=== PATIENT | male | born 1975 | race Caucasian/White ===

== ENCOUNTER 2017-12-18 11:12 | Inpatient (IN) | payer BC, OTHER ==
--- NOTE | 2017-12-18 12:15 | PDOC ---
History of Present Illness - History of Present Illness Initial Comments: 12/18/17 14:27 The patient is a 42 year old male with no significant past medical history who presents to the ED today sent from Dr. Diane Beasley at [facility] for worsening RLE pain s/p fall while at work on November 11. The patient reports high impact fall at his work to right knee where his leg twisted behind him. He states that he visited [facility] Care for the pain the day after the fall, who sent him to a knee specialist. Specialist found X-ray negative and sent him to vascular specialist. Pt was unable to see the vascular specialist and thus Dr. Beasley from urgent care ordered an arterial US of bilateral lower extremities. The US was done yesterday and revealed abnormal biphasic flow under right knee without plaques. As such, Dr. Beasley called the patient today and instructed him to come to the ED. The patient states that the pain is localized in the right calf and describes it as electricity shooting down his leg, and it feels like hot pain with numbness to his toes in RLE. The pain is brought on with exertion. He notes pain begins after walking as little as one block and states feels like Reina sprinted 5 miles. He also notes that after walking 1 block, his toes begin to feel numb. Allergies: NKA Past surgical history: none reported Social history: Daily tobacco use (4 cigarettes per day) Dr. Diane Beasley -Office: -covering office: <Eduard Quesada - Last Filed: 12/18/17 17:40> <Mirtha Simms - Last Filed: 12/18/17 19:08> - General Chief Complaint: Revisit, Lab Variance Stated Complaint: RT LEG NUMBNESS, LAB VARIANCE (WORK INJURY) Time Seen by Provider: 12/18/17 11:49 Past History - Past Medical History COPD: No - Suicide/Smoking/Psychosocial Hx Smoking History: Current every day smoker Have you smoked in the past 12 months: Yes Number of Cigarettes Smoked Daily: 4 Information on smoking cessation initiated: Yes 'Breaking Loose' booklet given: 12/18/17 Hx Alcohol Use: No Drug/Substance Use Hx: No Substance Use Type: None <Eduard Quesada - Last Filed: 12/18/17 17:40> <Mirtha Simms - Last Filed: 12/18/17 19:08> - Past Medical History Allergies/Adverse Reactions: Allergies Allergy/AdvReac Type Severity Reaction Status Date / Time No Known Allergies Allergy Verified 12/18/17 11:14 Home Medications: Ambulatory Orders NK [No Known Home Medication] 12/18/17 Review of Systems - Review of Systems Comments:: 12/18/17 14:34 "GENERAL/CONSTITUTIONAL: No fever or chills. No weakness. HEAD, EYES, EARS, NOSE AND THROAT: No change in vision. No ear pain or discharge. No sore throat. GASTROINTESTINAL: No nausea, vomiting, diarrhea or constipation. GENITOURINARY: No dysuria, frequency, or change in urination. CARDIOVASCULAR: No chest pain or shortness of breath. RESPIRATORY: No cough, wheezing, or hemoptysis. MUSCULOSKELETAL: (+)Right knee and calf pain. No joint or muscle swelling. No neck or back pain. SKIN: No rash NEUROLOGIC: No headache, vertigo, loss of consciousness, or change in strength. +R calf numbness ENDOCRINE: No increased thirst. No abnormal weight change. HEMATOLOGIC/LYMPHATIC: No anemia, easy bleeding, or history of blood clots. ALLERGIC/IMMUNOLOGIC: No hives or skin allergy." <Eduard Quesada - Last Filed: 12/18/17 17:40> *Physical Exam - Vital Signs Last Vital Signs Temp Pulse Resp BP Pulse Ox 97.9 F 76 18 107/70 100 12/18/17 11:15 12/18/17 11:15 12/18/17 11:15 12/18/17 11:15 12/18/17 11:15 - Physical Exam Comments: 12/18/17 14:35 GENERAL: Awake, alert, and fully oriented, in no acute distress HEAD: No signs of trauma EYES: PERRLA, EOMI, sclera anicteric, conjunctiva clear ENT: Auricles normal inspection, hearing grossly normal, nares patent, oropharynx clear without exudates. Moist mucosa NECK: Normal ROM, supple, no lymphadenopathy, JVD, or masses LUNGS: Breath sounds equal, clear to auscultation bilaterally. No wheezes, and no crackles HEART: Regular rate and rhythm, normal S1 and S2, no murmurs, rubs or gallops ABDOMEN: Soft, nontender, normoactive bowel sounds. No guarding, no rebound. No masses EXTREMITIES: (+)Diminished right dorsalis pedis pulse, not palpable but located by doppler. Normal L DP pulse. Normal range of motion, no edema. No clubbing or cyanosis. No cords, erythema, or tenderness BACK: No midline spinal tenderness in cervical/thoracic/lumbar region NEUROLOGICAL: Normal speech, cranial nerves intact, 5/5 strength in all 4 extremities, decreased R foot sensation to plantar surface of toes, normal sensation to proximal foot, normal cerebellar exam, normal gait, normal reflexes and tone SKIN: Warm, Dry, normal turgor, no rashes or lesions noted. <Eduard Quesada - Last Filed: 12/18/17 17:40> - Vital Signs Last Vital Signs Temp Pulse Resp BP Pulse Ox 97.9 F 76 18 107/70 100 12/18/17 11:15 12/18/17 11:15 12/18/17 11:15 12/18/17 11:15 12/18/17 11:15 <Mirtha Simms - Last Filed: 12/18/17 19:08> ED Treatment Course - LABORATORY CBC & Chemistry Diagram: 12/18/17 12:35 12/18/17 12:35 <Eduard Quesada - Last Filed: 12/18/17 17:40> - LABORATORY CBC & Chemistry Diagram: 12/18/17 12:35 12/18/17 12:35 - ADDITIONAL ORDERS Additional order review: Laboratory Results 12/18/17 12/18/17 12/18/17 12:50 12:35 12:35 PT with INR 10.70 INR 0.95 PTT (Actin FS) 30.5 Sodium Potassium Chloride Carbon Dioxide Anion Gap BUN Creatinine Creat Clearance w eGFR Random Glucose Calcium Total Bilirubin AST ALT Alkaline Phosphatase Total Protein Albumin Blood Type B POSITIVE Antibody Screen Negative 12/18/17 12:35 PT with INR INR PTT (Actin FS) Sodium 138 Potassium 4.5 Chloride 104 Carbon Dioxide 29 Anion Gap 5 L BUN 10 Creatinine 1.0 Creat Clearance w eGFR > 60 Random Glucose 90 Calcium 9.6 Total Bilirubin 0.3 AST 12 L ALT 23 Alkaline Phosphatase 87 Total Protein 7.5 Albumin 4.1 Blood Type Antibody Screen 12/18/17 12:35 RBC 5.14 MCV 91.4 MCHC 33.8 RDW 13.5 MPV 7.1 L Neutrophils % 60.1 Lymphocytes % 31.3 Monocytes % 6.7 Eosinophils % 1.2 Basophils % 0.7 - RADIOLOGY Radiograph Interpretation: 12/18/17 19:07 Aorta w/ runoff CTA was reviewed by Dr. Quesada and over-read by Radiology. IMPRESSION: Occluded proximal half of the right popliteal artery with reconstitution of flow to the popliteal artery at the level of the knee joint with distal leg/foot three-vessel runoff. 5 mm left lower lobe lung nodule. Follow-up CT scan in 12 months is suggested. Small left inguinal fat-containing hernia. <Mirtha Simms - Last Filed: 12/18/17 19:08> Medical Decision Making - Medical Decision Making 12/18/17 12:18 42yo M with no significant past medical history presents emergency Department after an abnormal arterial ultrasound of the lower extremities. Vitals unremarkable. Exam with diminished right dorsalis pedis pulse concerning for vascular injury, likely due to trauma incurred on November 11. Will obtain labs and a CTA of the right lower extremity with runoff and discuss with vascular. 12/18/17 17:35 CTA reveals R popliteal art dissection, pt seen by Dr. Smart, will be taken to OR tomorrow in AM. Per our discussion, Dr. Smart will order AC as needed PMD is Dr. Benites, but it's after 5pm will go to hospitalist Case discussed with AVA Sweeney pt to be admitted to med-surg inpt Case discussed in detail with admitting physician including history, physical exam and ancillary studies. Admitting physician has assumed care for the patient, will follow all pending diagnostics and will complete the evaluation and treatment. <Eduard Quesada - Last Filed: 12/18/17 17:40> - Medical Decision Making 12/18/17 14:[address] Diane Beasley's covering physician at Urgent Care, Dr. Grier at . On-call vascular surgeon, Dr. Anish Smart, paged at 12:[address] Smart returned our call at 1:05 pm but by the time Dr. Quesada got to the call he was no longer on the line. Dr. Smart was paged a second time at 1:[address] Oconnell office called again at 2:30 pm who told us note was passed on but he responded that he was currently in the OR. Cell called, case discussed with Dr. Smart at 2:40 pm. 12/18/17 16:45 Dr. Chana Mckenzie's is covering Dr. Benites for patient admission. Dr. Mckenzie's paged to discuss patient's admission at 4:20 pm, and a second time at 4:45 pm. Her cell was called at 4:45 pm. Awaiting call back. <Mirtha Simms - Last Filed: 12/18/17 19:08> *DC/Admit/Observation/Transfer - Discharge Dispostion Decision to Admit order: Yes - Attestations Physician Attestion: 12/18/17 17:44 I, Dr. Eduard Quesada MD, attest that this document has been prepared under my direction and personally reviewed by me in its entirety. I further attest, that it accurately reflects all work, treatment, procedures and medical decision -making performed by me. <Eduard Quesada - Last Filed: 12/18/17 17:40> - Attestations Scribe Attestion: 12/18/17 14:44 Documentation prepared by Mirtha Simms, acting as medical corps officer for Eduard Quesada MD. <Mirtha Simms - Last Filed: 12/18/17 19:08> Diagnosis at time of Disposition: Popliteal artery injury, Artery dissection - Discharge Dispostion Condition at time of disposition: Stable
[2017-12-18 12:44] LABS: BASO % 0.7 % (0-2.0); EOS % 1.2 % (0-4.5); HEMATOCRIT 46.9 % (35.4-49); HEMOGLOBIN 15.8 GM/dL (11.7-16.9); LYMPH % 31.3 % (8-40); MCH 30.9 pg (25.7-33.7); MCHC 33.8 g/dl (32.0-35.9); MEAN CELL VOLUME 91.4 fl (80-96); MEAN PLT VOLUME 7.1 fl (7.5-11.1); MONO % 6.7 % (3.8-10.2); NEUT % 60.1 % (42.8-82.8); PLATELET COUNT 444 K/MM3 (134-434); RBC 5.14 M/mm3 (4.00-5.60); RDW 13.5 % (11.9-15.9); WHITE BLOOD COUNT 7.4 K/mm3 (4.0-10.0)
[2017-12-18 13:02] LABS: INR 0.95 (0.82-1.09); PROTHROMBIN TIME (PATIENT) 10.7 SEC (9.7-13.0)
[2017-12-18 13:09] LABS: ALBUMIN 4.1 g/dl (3.4-5.0); ALK PHOS 87 U/L (45-117); ANION GAP 5 (8-16); BILIRUBIN,TOTAL 0.3 mg/dL (0.2-1.0); BLOOD UREA NITROGEN 10 mg/dL (7-18); CALCIUM 9.6 mg/dL (8.5-10.1); CHLORIDE 104 mmol/L (98-107); CO2 29 mmol/L (21-32); GLUCOSE,RANDOM 90 mg/dL (74-106); POTASSIUM 4.5 mmol/L (3.5-5.1); SGOT/AST 12 U/L (15-37); SGPT/ALT 23 U/L (12-78); SODIUM 138 mmol/L (136-145); TOT PROT 7.5 g/dl (6.4-8.2)
--- NOTE | 2017-12-18 16:53 | PN ---
Progress Note (short form) - Note Progress Note: Vascular Surgery Pt seen and examined in the ER. Pt with trauma november 11 due to a fall. Since then pt has been having claudication symptoms. CTA reviewed - right popliteal artery is closed. Prob due to thrombus Pt has palpable left DP pulse. Pt does not have palpable DP pulse in right leg. Only dopplerable. Motor and sensory are intact. A/P Right Popliteal artery dissection. 1. For angiogram, thrombolysis in am. Anish Smart DO
--- NOTE | 2017-12-18 17:32 | HP ---
CHIEF COMPLAINT: PCP: HISTORY OF PRESENT ILLNESS: ER course was notable for: (1) (2) (3) Recent Travel: PAST MEDICAL HISTORY: PAST SURGICAL HISTORY: Social History: Smoking: Alcohol: Drugs: Family History: Allergies No Known Allergies Allergy (Verified 12/18/17 11:14) HOME MEDICATIONS: Home Medications Medication Instructions Recorded NK [No Known Home Medication] 12/18/17 REVIEW OF SYSTEMS CONSTITUTIONAL: Absent: fever, chills, diaphoresis, generalized weakness, malaise, loss of appetite, weight change HEENT: Absent: rhinorrhea, nasal congestion, throat pain, throat swelling, difficulty swallowing, mouth swelling, ear pain, eye pain, visual changes CARDIOVASCULAR: Absent: chest pain, syncope, palpitations, irregular heart rate, lightheadedness , peripheral edema RESPIRATORY: Absent: cough, shortness of breath, dyspnea with exertion, orthopnea, wheezing, stridor, hemoptysis GASTROINTESTINAL: Absent: abdominal pain, abdominal distension, nausea, vomiting, diarrhea, constipation, melena, hematochezia GENITOURINARY: Absent: dysuria, frequency, urgency, hesitancy, hematuria, flank pain, genital pain MUSCULOSKELETAL: Absent: myalgia, arthralgia, joint swelling, back pain, neck pain SKIN: Absent: rash, itching, pallor HEMATOLOGIC/IMMUNOLOGIC: Absent: easy bleeding, easy bruising, lymphadenopathy, frequent infections ENDOCRINE: Absent: unexplained weight gain, unexplained weight loss, heat intolerance, cold intolerance NEUROLOGIC: Absent: headache, focal weakness or paresthesias, dizziness, unsteady gait, seizure, mental status changes, bladder or bowel incontinence PSYCHIATRIC: Absent: anxiety, depression, suicidal or homicidal ideation, hallucinations. PHYSICAL EXAMINATION Vital Signs - 24 hr 12/18/17 12/18/17 11:15 16:23 Temperature 97.9 F 98.1 F Pulse Rate 76 Pulse Rate [ 69 Left Radial] Respiratory 18 18 Rate Blood Pressure 107/70 Blood Pressure 115/71 [Right Arm] O2 Sat by Pulse 100 98 Oximetry (%) GENERAL: Awake, alert, and fully oriented, in no acute distress. HEAD: Normal with no signs of trauma. EYES: Pupils equal, round and reactive to light, extraocular movements intact, sclera anicteric, conjunctiva clear. No lid lag. EARS, NOSE, THROAT: Ears normal, nares patent, oropharynx clear without exudates. Moist mucous membranes. NECK: Normal range of motion, supple without lymphadenopathy, JVD, or masses. LUNGS: Breath sounds equal, clear to auscultation bilaterally. No wheezes, and no crackles. No accessory muscle use. HEART: Regular rate and rhythm, normal S1 and S2 without murmur, rub or gallop. ABDOMEN: Soft, nontender, not distended, normoactive bowel sounds, no guarding, no rebound, no masses. No hepatomegaly or splenomegaly. MUSCULOSKELETAL: Normal range of motion at all joints. No bony deformities or tenderness. No CVA tenderness. UPPER EXTREMITIES: 2+ pulses, warm, well-perfused. No cyanosis. No clubbing. No peripheral edema. LOWER EXTREMITIES: 2+ pulses, warm, well-perfused. No calf tenderness. No peripheral edema. NEUROLOGICAL: Cranial nerves II-XII intact. Normal speech. Normal gait. PSYCHIATRIC: Cooperative. Good eye contact. Appropriate mood and affect. SKIN: Warm, dry, normal turgor, no rashes or lesions noted, normal capillary refill. Laboratory Results - last 24 hr 12/18/17 12/18/17 12/18/17 12:35 12:35 12:35 WBC 7.4 RBC 5.14 Hgb 15.8 Hct 46.9 MCV 91.4 MCH 30.9 MCHC 33.8 RDW 13.5 Plt Count 444 H MPV 7.1 L Absolute Neuts (auto) 4.5 Neutrophils % 60.1 Lymphocytes % 31.3 Monocytes % 6.7 Eosinophils % 1.2 Basophils % 0.7 Nucleated RBC % 0 PT with INR INR PTT (Actin FS) Sodium 138 Potassium 4.5 Chloride 104 Carbon Dioxide 29 Anion Gap 5 L BUN 10 Creatinine 1.0 Creat Clearance w eGFR > 60 Random Glucose 90 Calcium 9.6 Total Bilirubin 0.3 AST 12 L ALT 23 Alkaline Phosphatase 87 Total Protein 7.5 Albumin 4.1 Blood Type B POSITIVE Antibody Screen Negative 12/18/17 12/18/17 12/18/17 12:35 12:50 15:15 WBC RBC Hgb Hct MCV MCH MCHC RDW Plt Count MPV Absolute Neuts (auto) Neutrophils % Lymphocytes % Monocytes % Eosinophils % Basophils % Nucleated RBC % PT with INR 10.70 INR 0.95 PTT (Actin FS) 30.5 Sodium Potassium Chloride Carbon Dioxide Anion Gap BUN Creatinine Creat Clearance w eGFR Random Glucose Calcium Total Bilirubin AST ALT Alkaline Phosphatase Total Protein Albumin Blood Type B POSITIVE Antibody Screen ASSESSMENT/PLAN: Hospitalist Screening - Colonoscopy Questionnaire Colonoscopy Questionnaire: Colonoscopy Questionnaire
--- NOTE | 2017-12-18 18:34 | HP ---
CHIEF COMPLAINT: Right leg pain PCP: Dr. Benites HISTORY OF PRESENT ILLNESS: The patient is a 42 year-old male with no significant past medical history who presents to the ED today sent from Dr. Diane Beasley at [facility] for worsening RLE pain s/p fall while at work on November 11. The patient reports high impact fall at his work to right knee where his leg twisted behind him. He states that he visited [facility] Care for the pain the day after the fall, who sent him to a knee specialist. Specialist found X-ray negative and sent him to vascular specialist. Pt was unable to see the vascular specialist and thus Dr. Beasley from urgent care ordered an arterial US of bilateral lower extremities. The US was done yesterday and revealed abnormal biphasic flow under right knee without plaques. As such, Dr. Beasley called the patient today and instructed him to come to the ED. The patient states that the pain is localized in the right calf and describes it as electricity shooting down his leg, and it feels like hot pain with numbness to his toes in RLE. The pain is brought on with exertion. He notes pain begins after walking as little as one block and states feels like [place] sprinted 5 miles. He also notes that after walking 1 block, his toes begin to feel numb. Recent Travel: No PAST MEDICAL HISTORY: None reported PAST SURGICAL HISTORY: None reported Social History: Smoking: current every day Alcohol: no Drugs: no Family History: Allergies No Known Allergies Allergy (Verified 12/18/17 11:14) HOME MEDICATIONS: Home Medications Medication Instructions Recorded NK [No Known Home Medication] 12/18/17 REVIEW OF SYSTEMS CONSTITUTIONAL: Absent: fever, chills, diaphoresis, generalized weakness, malaise, loss of appetite, weight change HEENT: Absent: rhinorrhea, nasal congestion, throat pain, throat swelling, difficulty swallowing, mouth swelling, ear pain, eye pain, visual changes CARDIOVASCULAR: +Right leg pain Absent: chest pain, syncope, palpitations, irregular heart rate, lightheadedness , peripheral edema RESPIRATORY: Absent: cough, shortness of breath, dyspnea with exertion, orthopnea, wheezing, stridor, hemoptysis GASTROINTESTINAL: Absent: abdominal pain, abdominal distension, nausea, vomiting, diarrhea, constipation, melena, hematochezia GENITOURINARY: Absent: dysuria, frequency, urgency, hesitancy, hematuria, flank pain, genital pain MUSCULOSKELETAL: Absent: myalgia, arthralgia, joint swelling, back pain, neck pain SKIN: Absent: rash, itching, pallor HEMATOLOGIC/IMMUNOLOGIC: Absent: easy bleeding, easy bruising, lymphadenopathy, frequent infections ENDOCRINE: Absent: unexplained weight gain, unexplained weight loss, heat intolerance, cold intolerance NEUROLOGIC: +Numbness right toes, leg and toes turn cold with ambulation Absent: headache, focal weakness or paresthesias, dizziness, unsteady gait, seizure, mental status changes, bladder or bowel incontinence PSYCHIATRIC: Absent: anxiety, depression, suicidal or homicidal ideation, hallucinations. PHYSICAL EXAMINATION Vital Signs - 24 hr 12/18/17 12/18/17 11:15 16:23 Temperature 97.9 F 98.1 F Pulse Rate 76 Pulse Rate [ 69 Left Radial] Respiratory 18 18 Rate Blood Pressure 107/70 Blood Pressure 115/71 [Right Arm] O2 Sat by Pulse 100 98 Oximetry (%) GENERAL: Awake, alert, and fully oriented, in no acute distress. HEAD: Normal with no signs of trauma. EYES: Pupils equal, round and reactive to light, extraocular movements intact, sclera anicteric, conjunctiva clear. No lid lag. EARS, NOSE, THROAT: Ears normal, nares patent, oropharynx clear without exudates. Moist mucous membranes. NECK: Normal range of motion, supple without lymphadenopathy, JVD, or masses. LUNGS: Breath sounds equal, clear to auscultation bilaterally. No wheezes, and no crackles. No accessory muscle use. HEART: Regular rate and rhythm, normal S1 and S2 without murmur, rub or gallop. ABDOMEN: Soft, nontender, not distended, normoactive bowel sounds, no guarding, no rebound, no masses. MUSCULOSKELETAL: Normal range of motion at all joints. No bony deformities or tenderness. No CVA tenderness. UPPER EXTREMITIES: 2+ pulses, warm, well-perfused. No cyanosis. No clubbing. No peripheral edema. LEFT LOWER EXTREMITY: 2+ pulses, warm, well-perfused. No calf tenderness. No peripheral edema. RIGHT LOWER EXTREMITY: unable to palpate a pulse but leg, foot, toes are warm, well-perfused, good cap refill, no edema, no calf tenderness NEUROLOGICAL: Cranial nerves II-XII intact. Normal speech. Laboratory Results - last 24 hr 0712/18/17 12/18/17 12:35 12:35 12:35 WBC 7.4 RBC 5.14 Hgb 15.8 Hct 46.9 MCV 91.4 MCH 30.9 MCHC 33.8 RDW 13.5 Plt Count 444 H MPV 7.1 L Absolute Neuts (auto) 4.5 Neutrophils % 60.1 Lymphocytes % 31.3 Monocytes % 6.7 Eosinophils % 1.2 Basophils % 0.7 Nucleated RBC % 0 PT with INR INR PTT (Actin FS) Sodium 138 Potassium 4.5 Chloride 104 Carbon Dioxide 29 Anion Gap 5 L BUN 10 Creatinine 1.0 Creat Clearance w eGFR > 60 Random Glucose 90 Calcium 9.6 Total Bilirubin 0.3 AST 12 L ALT 23 Alkaline Phosphatase 87 Total Protein 7.5 Albumin 4.1 Blood Type B POSITIVE Antibody Screen Negative 12/18/17 12/18/17 12/18/17 12:35 12:50 15:15 WBC RBC Hgb Hct MCV MCH MCHC RDW Plt Count MPV Absolute Neuts (auto) Neutrophils % Lymphocytes % Monocytes % Eosinophils % Basophils % Nucleated RBC % PT with INR 10.70 INR 0.95 PTT (Actin FS) 30.5 Sodium Potassium Chloride Carbon Dioxide Anion Gap BUN Creatinine Creat Clearance w eGFR Random Glucose Calcium Total Bilirubin AST ALT Alkaline Phosphatase Total Protein Albumin Blood Type B POSITIVE Antibody Screen ASSESSMENT/PLAN: 42 year-old male with no significant PMH admitted for right popliteal artery dissection. Right popliteal artery dissection --to OR tomorrow with Dr. Smart for angiogram, thrombolysis; no heparin drip per Smart --ICU tomorrow night --re-evaluate Saturday morning for possible further surgical intervention FEN Fluids: NS @ 100mL/hr Electrolytes: replete as indicated Nutrition: NPO after midnight DVT prophylaxis: left leg SCD only, oob, ambulation Dispo: continues to require inpatient care. Full code. Visit type - Emergency Visit Emergency Visit: Yes ED Registration Date: 12/18/17 Care time: The patient presented to the Emergency Department on the above date and was hospitalized for further evaluation of their emergent condition. - New Patient This patient is new to me today: Yes Date on this admission: 12/18/17 - Critical Care Critical Care patient: No Hospitalist Screening - Colonoscopy Questionnaire Colonoscopy Questionnaire: Colonoscopy Questionnaire - Patient: 50 - 75 years old and never had a screening colonoscopy: No History of colon or rectal polyps, or CA: No History of IBD, Crohn's disease or UC: No History of abdominal radiation therapy as a child: No - Relative: 1 with colon or rectal CA, or polyps at age 60 or younger: Unknown Colon or rectal CA diagnosed at age 45 or younger: Unknown Multiple relatives with colon or rectal CA: Unknown - Outcome: Screening Result: Negative Screen
[2017-12-18] MEDS: SODIUM CHLORIDE 1,000 ML IV SCH (19:24)
[2017-12-19] MEDS: SODIUM CHLORIDE 1,000 ML IV SCH ×2 (03:07→13:00)
[2017-12-19 07:16] LABS: BASO % 0.9 % (0-2.0); EOS % 2.2 % (0-4.5); HEMATOCRIT 44.1 % (35.4-49); HEMOGLOBIN 15.3 GM/dL (11.7-16.9); LYMPH % 42.6 % (8-40); MCH 31.7 pg (25.7-33.7); MCHC 34.6 g/dl (32.0-35.9); MEAN CELL VOLUME 91.7 fl (80-96); MEAN PLT VOLUME 7.3 fl (7.5-11.1); MONO % 6.8 % (3.8-10.2); NEUT % 47.5 % (42.8-82.8); PLATELET COUNT 431 K/MM3 (134-434); RBC 4.82 M/mm3 (4.00-5.60); RDW 13.2 % (11.9-15.9); WHITE BLOOD COUNT 8.8 K/mm3 (4.0-10.0)
[2017-12-19 07:48] LABS: ALBUMIN 3.8 g/dl (3.4-5.0); ANION GAP 8 (8-16); BLOOD UREA NITROGEN 10 mg/dL (7-18); CALCIUM 9.2 mg/dL (8.5-10.1); CHLORIDE 105 mmol/L (98-107); CO2 26 mmol/L (21-32); GLUCOSE,RANDOM 92 mg/dL (74-106); MAGNESIUM 2.3 mg/dL (1.8-2.4); POTASSIUM 4.3 mmol/L (3.5-5.1); SODIUM 139 mmol/L (136-145)
[2017-12-19 07:53] LABS: ALK PHOS 97 U/L (45-117); BILIRUBIN,TOTAL 0.2 mg/dL (0.2-1.0); CREATININE 0.8 mg/dL (0.7-1.3); SGOT/AST 12 U/L (15-37); SGPT/ALT 23 U/L (12-78)
[2017-12-19] MEDS ORDERED: HEPARIN INFUSION - 25,000 UNITS/500 ML INFUS.BAG IVPB ONE (08:41)
--- NOTE | 2017-12-19 10:45 | PN ---
Progress Note, Physician Chief Complaint: has pain in right leg on walking only No rest pain - Current Medication List Current Medications: Active Medications Sodium Chloride (Normal Saline -) 1,000 mls @ 100 mls/hr IV ASDIR ABNER Last Admin: 12/19/17 03:07 Dose: 100 mls/hr - Objective Vital Signs: Vital Signs Temperature 98.6 F 12/19/17 06:00 Pulse Rate 74 12/19/17 06:00 Respiratory Rate 20 12/19/17 06:00 Blood Pressure 120/78 12/19/17 06:00 O2 Sat by Pulse Oximetry (%) 99 12/19/17 08:45 Constitutional: Yes: No Distress, Calm Cardiovascular: Yes: Regular Rate and Rhythm Respiratory: Yes: CTA Bilaterally Gastrointestinal: Yes: Normal Bowel Sounds, Soft. No: Tenderness Edema: No Peripheral Pulses: Left Doralis Pedis: 0, Right Dorsalis Pedis: 3+ Labs: CBC, BMP 12/19/17 06:30 12/19/17 06:30 INR, PTT INR 0.95 (0.82-1.09) 12/18/17 12:35 Problem List - Problems (1) Leg pain Code(s): M79.606 - PAIN IN LEG, UNSPECIFIED (2) Artery dissection Code(s): I77.70 - DISSECTION OF UNSPECIFIED ARTERY (3) Popliteal artery injury Code(s): S85.009A - UNSP INJURY OF POPLITEAL ARTERY, UNSP LEG, INIT ENCNTR Assessment/Plan PLAN IV fluids keep NPO for angiogram /thrombolysis today Will need post op ICU monitoring pain control as needed
[2017-12-19] MEDS ORDERED: ACETAMINOPHEN 325 MG TABLET (FP) PO PRN (11:05)
[2017-12-19] MEDS ORDERED: LIDOCAINE HCL 1%, 10 MG/ML (20ML VIAL) ONE (11:26)
[2017-12-19] MEDS ORDERED: HEPARIN NA (PORCINE) 5,000 UNITS/ML 1ML VIAL ONE ×2 (11:27→12:27)
[2017-12-19] MEDS ORDERED: ALTEPLASE (CATHFLO) 25 MG in SODIUM CHLORIDE 250 ML CVP SCH (11:30)
[2017-12-19] MEDS ORDERED: ONDANSETRON 4 MG/2 ML VIAL IVPUSH PRN (11:40)
[2017-12-19] MEDS ORDERED: PROMETHAZINE HCL 25 MG/1 ML VIAL IVPUSH PRN (11:40)
[2017-12-19] MEDS ORDERED: MIDAZOLAM HCL 2 MG/2 ML SINGLE DOSE VIAL ONE (11:42)
[2017-12-19] MEDS ORDERED: LIDOCAINE HCL/PF 2% SDV 5ML VIAL ONE (11:56)
[2017-12-19] MEDS ORDERED: SODIUM CHLORIDE 0.9% P/F 10 ML VIAL IJ ONE ×2 (11:56→12:17)
[2017-12-19] MEDS ORDERED: ceFAZolin SODIUM 1 GM VIAL ONE (11:56)
[2017-12-19] MEDS ORDERED: ceFAZolin SODIUM 1 GM VIAL IVPB ONE (11:58)
[2017-12-19] MEDS ORDERED: PROPOFOL 20 ML ONE (12:11)
[2017-12-19] MEDS ORDERED: LIDOCAINE HCL 1%, 10 MG/ML (50 mL VIAL) IJ ONE ×2 (12:20)
[2017-12-19] MEDS: HEPARIN INFUSION - 25,000 UNITS/500 ML INFUS.BAG IVPB SCH ×2 (13:00→19:00)
[2017-12-19] MEDS ORDERED: LACTATED RINGERS SOLUTION 1,000 ML IV SCH (13:00)
[2017-12-19] MEDS ORDERED: morphine CARPU-JECT 4 MG/1 ML DISP.SYRIN IVPUSH PRN (13:45)
--- NOTE | 2017-12-19 13:56 | OP ---
Operative Note - Note: Operative Date: 12/19/17 Pre-Operative Diagnosis: Right popliteal artery dissection Operation: Aortogram, RLE angiogram, Thrombolysis Post-Operative Diagnosis: Same as Pre-op Surgeon: Anish Smart Anesthesia: Fractional Estimated Blood Loss (mls): 20 Operative Report Dictated: Yes
--- NOTE | 2017-12-19 14:22 | EKG ---
Test Reason : Blood Pressure : / mmHG Vent. Rate : 073 BPM Atrial Rate : 073 BPM P-R Int : 154 ms QRS Dur : 092 ms QT Int : 344 ms P-R-T Axes : 046 017 025 degrees QTc Int : 378 ms NORMAL SINUS RHYTHM NORMAL ECG NO PREVIOUS ECGS AVAILABLE Confirmed by SINDY RICHARDS MD ([id number]) on 12/19/2017 2:21:36 PM Referred By: Confirmed By:SINDY RICHARDS MD
--- NOTE | 2017-12-19 15:10 | PN ---
Teaching Attending Note Name of Resident: Faraz Ham ATTENDING PHYSICIAN STATEMENT I saw and evaluated the patient. I reviewed the resident's note and discussed the case with the resident. I agree with the resident's findings and plan as documented. SUBJECTIVE: 42 M, tobacco smoker. No previous medical illnesses or surgery. S/P fall while at work with resultant right knee trauma. Went to an urgent care and a vascular US was obtained. he was called and told to come the the ED due to an abnormal result. No recent travel history or sick contacts. No fever or chills. 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 Now S/P aortogram, RLE angiogram, and thrombolysis. Awake and alert. Pain seems adequately controlled. Intake & Output 12/16/17 12/17/17 12/18/17 12/19/17 23:59 23:59 23:59 23:59 Intake Total 940 Output Total 320 Balance 620 Weight 189 lb 186 lb 8 oz Last Vital Signs Temp Pulse Resp BP Pulse Ox 98.1 F 58 L 10 L 111/75 97 12/19/17 15:03 12/19/17 15:03 12/19/17 15:03 12/19/17 15:03 12/19/17 14:30 Active Medications Acetaminophen (Tylenol -) 650 mg PO Q6H PRN PRN Reason: FEVER Diphenhydramine HCl (Benadryl Injection -) 25 mg IVPUSH Q4H PRN PRN Reason: FOR ITCHING Fentanyl (Sublimaze Injection -) 50 mcg IVPUSH [id number] PRN PRN Reason: PAIN-PACU ORDER X 4 DOSES ONLY Stop: 12/19/17 20:00 Last Admin: 12/19/17 13:53 Dose: 50 mcg Sodium Chloride (Normal Saline -) 1,000 mls @ 50 mls/hr IV ASDIR ABNER Last Admin: 12/19/17 13:00 Dose: 100 mls Alteplase, Recombinant 25 mg/ (Sodium Chloride) 250 mls @ 10 mls/hr CVP ASDIR ABNER Stop: 12/20/17 11:29 Last Admin: 12/19/17 13:00 Dose: 20 mls Lactated Ringer's (Lactated Ringers Solution) 1,000 mls @ 125 mls/hr IV ASDIR ABNER Heparin Sodium/Dextrose (Heparin Infusion -) 25,000 units in 500 mls @ 10 mls/ hr IVPB ASDIR ABNER Last Admin: 12/19/17 13:00 Dose: 20 mls Morphine Sulfate (Morphine Injection -) 4 mg IVPUSH Q4H PRN PRN Reason: -PAIN Ondansetron HCl (Zofran Injection) 4 mg IVPUSH Q6H PRN PRN Reason: NAUSEA AND/OR VOMITING Stop: 12/20/17 11:39 Promethazine HCl (Phenergan Injection -) 12.5 mg IVPUSH Q6H PRN PRN Reason: NAUSEA-FOR RESCUE AFTER 15 MIN Stop: 12/20/17 11:39 GENERAL: Awake, alert, and fully oriented, in no acute distress HEAD: No signs of trauma EYES: PERRLA, EOMI, sclera anicteric, conjunctiva clear ENT: Auricles normal inspection, hearing grossly normal, nares patent, oropharynx clear without exudates. Moist mucosa NECK: Normal ROM, supple, no lymphadenopathy, JVD, or masses LUNGS: Breath sounds equal, clear to auscultation bilaterally. No wheezes, and no crackles HEART: Regular rate and rhythm, normal S1 and S2, no murmurs, rubs or gallops ABDOMEN: Soft, nontender, normoactive bowel sounds. No guarding, no rebound. No masses EXTREMITIES: warm, (+) PP. Normal Left DP pulse. Normal range of motion, no edema. No clubbing or cyanosis. BACK: No midline spinal tenderness in cervical/thoracic/lumbar region NEUROLOGICAL: non-focal. SKIN: Warm, Dry, normal turgor, no rashes or lesions noted. Laboratory Results - last 24 hr 12/18/17 12/19/17 12/19/17 15:15 06:30 06:30 WBC 8.8 RBC 4.82 Hgb 15.3 Hct 44.1 MCV 91.7 MCH 31.7 MCHC 34.6 RDW 13.2 Plt Count 431 MPV 7.3 L Absolute Neuts (auto) 4.2 Neutrophils % 47.5 D Lymphocytes % 42.6 H D Monocytes % 6.8 Eosinophils % 2.2 D Basophils % 0.9 Nucleated RBC % 0 Sodium 139 Potassium 4.3 Chloride 105 Carbon Dioxide 26 Anion Gap 8 BUN 10 Creatinine 0.8 Creat Clearance w eGFR > 60 Random Glucose 92 Calcium 9.2 Magnesium 2.3 Total Bilirubin 0.2 AST 12 L ALT 23 Alkaline Phosphatase 97 D Total Protein 7.0 Albumin 3.8 Blood Type B POSITIVE Problem List - Problems (1) Leg pain Code(s): M79.606 - PAIN IN LEG, UNSPECIFIED (2) Artery dissection Code(s): I77.70 - DISSECTION OF UNSPECIFIED ARTERY (3) Popliteal artery injury Code(s): S85.009A - UNSP INJURY OF POPLITEAL ARTERY, UNSP LEG, INIT ENCNTR Assessment/Plan 4.9 mm Left LL lung nodule. (No previous CT imaging for comparison) IV fluids Patient currently on ECOS device For sheath removal in AM O2 as needed Incentive Spirometry Pain control Follow H&H Strict I & O Post op ICU monitoring Dr Sagastume Critical care time spent in reviewing chart, evaluating patient and formulating plan - 36 minutes.
--- NOTE | 2017-12-19 15:43 | OP ---
DATE OF OPERATION: 12/19/2017 PREOPERATIVE DIAGNOSIS: Right popliteal artery dissection. POSTOPERATIVE DIAGNOSIS: Right popliteal artery dissection. PROCEDURE PERFORMED: Aortogram, right lower extremity angiogram, infusion of thrombolysis. SURGEON: Anish Jean DO ANESTHESIA: Fractional. BLOOD LOSS: 20 mL. INDICATIONS: The patient is a 42-year-old male who came in with a history of a bad fall on November 11, 2017. He claims that after that he went to his medical doctor, who sent him to an orthopedic surgeon, and the orthopedic surgeon cleared him for all the pain that he was having in his right leg, especially when he was walking. He got sent for an arterial ultrasound, which showed abnormal flow behind the knee, and they sent him to the emergency room. Upon coming to the emergency room, CTA was obtained, showing that there is thrombosis of the right popliteal artery, probably secondary to dissection. At this point it was decided that he would need an angiogram and thrombolysis, and then repair of the artery via angioplasty and stent if needed. DESCRIPTION OF PROCEDURE: The patient was consented for the procedure, understanding all risks, benefits and alternatives. He was then taken to the operating room. Once in the operating room, the patient was laid on the operating table in the supine manner. The areas of the left and right groin were prepped and draped in a sterile surgical manner. Under ultrasound guidance, we were able to visualize the left common femoral artery and 10 mL of lidocaine 1% was injected there. We then took our Micropuncture needle and punctured the artery. Micropuncture wire was inserted. Micropuncture sheath was inserted. An additional 5-Kinyarwanda sheath was inserted. We then placed a 0.035 floppy guidewire up into the aorta, followed by an Omni Flush catheter. We then shot an aortogram, showing that the aorta and iliac arteries were without any disease. We then went up and over using an 0.035 floppy guidewire and placed the wire in the right common femoral artery, followed by our Omni Flush catheter. We then shot an angiogram of the right lower extremity, showing that the common femoral artery, the profunda and the SFA were patent, but the distal SFA going into the popliteal artery was occluded for a segment of about 15 cm. The patient had 3-vessel runoff into the foot. At this point we placed a 0.035 floppy guidewire down to the occlusion. We took out our Omni Flush catheter. We placed a 6 x 45 Crossover sheath and 5000 units of IV heparin was administered to the patient. We then used a Quick-Cross catheter. We were able to get down to the occlusion and we were able to selectively cross the occlusion and placed a wire in the [place] artery. The Quick-Cross catheter was brought across the occlusion. Then we shot an angiogram, showing that we indeed were intraluminal. At this point we placed an 0.035 stiff guidewire down into the peroneal artery. We then went ahead and used an EKOS 106-cm catheter with 18-cm working length and 1 mg of tPA per hour was now being infused. We gave heparin IV peripherally and an EKOS catheter was placed with the ultrasound transducer across the occlusion. The tPA was infused 1 mg/hr. We then went ahead and wet and dried the left groin, and a sterile dressing was placed. The patient was transferred to the ICU. Prior to the procedure starting, we placed a Barber catheter in the patient as well. The patient will now get tPA infusion and will be brought back tomorrow for a thrombolysis check. Total blood loss was 20 mL. ANISH JEAN DO [id number]
[2017-12-19] MEDS ORDERED: NICOTINE 14 MG/24 HOURS TOPICAL PATCH TD SCH (16:15)
--- NOTE | 2017-12-19 16:47 | PN ---
Physical Exam: SUBJECTIVE: Patient seen and examined OBJECTIVE: Vital Signs Period Temp Pulse Resp BP Sys/Villagomez Pulse Ox Last 24 Hr 98.0 F-98.6 F 52-83 10-20 106-120/63-85 96-100 GENERAL: The patient is awake, alert, and fully oriented, in no acute distress. HEAD: Normal with no signs of trauma. EYES: PERRL, extraocular movements intact, sclera anicteric, conjunctiva clear. No ptosis. ENT: Ears normal, nares patent, oropharynx clear without exudates, moist mucous membranes. NECK: Trachea midline, full range of motion, supple. LUNGS: Breath sounds equal, clear to auscultation bilaterally, no wheezes, no crackles, no accessory muscle use. HEART: Regular rate and rhythm, S1, S2 without murmur, rub or gallop. ABDOMEN: Soft, nontender, nondistended, normoactive bowel sounds, no guarding, no rebound, no hepatosplenomegaly, no masses. EXTREMITIES: 2+ pulses, warm, well-perfused, no edema. NEUROLOGICAL: Cranial nerves II through XII grossly intact. Normal speech, gait not observed. PSYCH: Normal mood, normal affect. SKIN: Warm, dry, normal turgor, no rashes or lesions noted Laboratory Results - last 24 hr 12/19/17 12/19/17 06:30 06:30 WBC 8.8 RBC 4.82 Hgb 15.3 Hct 44.1 MCV 91.7 MCH 31.7 MCHC 34.6 RDW 13.2 Plt Count 431 MPV 7.3 L Absolute Neuts (auto) 4.2 Neutrophils % 47.5 D Lymphocytes % 42.6 H D Monocytes % 6.8 Eosinophils % 2.2 D Basophils % 0.9 Nucleated RBC % 0 Sodium 139 Potassium 4.3 Chloride 105 Carbon Dioxide 26 Anion Gap 8 BUN 10 Creatinine 0.8 Creat Clearance w eGFR > 60 Random Glucose 92 Calcium 9.2 Magnesium 2.3 Total Bilirubin 0.2 AST 12 L ALT 23 Alkaline Phosphatase 97 D Total Protein 7.0 Albumin 3.8 Active Medications Generic Name Dose Route Start Last Admin Trade Name Freq PRN Reason Stop Dose Admin Acetaminophen 650 mg 12/19/17 11:05 Tylenol - PO Q6H PRN FEVER Diphenhydramine HCl 25 mg 12/19/17 15:02 Benadryl Injection - IVPUSH Q4H PRN FOR ITCHING Fentanyl 50 mcg 12/19/17 11:40 12/19/17 13:53 Sublimaze Injection - IVPUSH 12/19/17 20:00 50 mcg [id number] PRN Administration PAIN-PACU ORDER X 4 DOSES ONLY Sodium Chloride 1,000 mls @ 50 mls/hr 12/18/17 18:45 12/19/17 13:00 Normal Saline - IV 100 mls ASDIR ABNER Administration Alteplase, Recombinant 25 mg/ 250 mls @ 10 mls/hr 12/19/17 11:30 12/19/17 13: 00 Sodium Chloride CVP 12/20/17 11:29 20 mls ASDIR ABNER Administration 1 MG/HR Lactated Ringer's 1,000 mls @ 125 mls/hr 12/19/17 13:00 Lactated Ringers Solution IV ASDIR ABNER Heparin Sodium/Dextrose 25,000 units in 500 mls @ 10 mls/hr 12/19/17 14:15 13:00 Heparin Infusion - IVPB 20 mls ASDIR ABNER Administration Morphine Sulfate 4 mg 12/19/17 15:14 Morphine Sulfate IVPUSH Q4H PRN -PAIN Nicotine 14 mg 12/19/17 16:15 12/19/17 16:20 Nicoderm Patch - TD 14 mg DAILY ABNER Administration Ondansetron HCl 4 mg 12/19/17 11:40 Zofran Injection IVPUSH 12/20/17 11:39 Q6H PRN NAUSEA AND/OR VOMITING Promethazine HCl 12.5 mg 12/19/17 11:40 Phenergan Injection - IVPUSH 12/20/17 11:39 Q6H PRN NAUSEA-FOR RESCUE AFTER 15 MIN ASSESSMENT/PLAN:
[2017-12-19] MEDS ORDERED: morphine SULFATE 4 MG/ML VIAL ONE (18:31)
[2017-12-19] MEDS ORDERED: morphine SULFATE 4 MG/ML VIAL IVPUSH ONE (18:45)
--- NOTE | 2017-12-19 19:20 | CONSULT ---
Consultation: REQUESTING PROVIDER: CONSULT REQUEST: We have been asked to medically evaluate this patient for ( Right Popliteal Artery Dissection S/P aortogram, RLE angiogram, and thrombolysis ). HISTORY OF PRESENT ILLNESS: Mr Yo is a 42 y/o gentleman who presented initally to [facility] on November 11 of this year after he fell on his right knee after tripping on a mannequin figure while at work. Pt states his leg twisted behind him. Pt was referred to a vascular specialist however was unable to see the specialist per patient. Subsequently, Dr. Beasley from urgent care ordered an arterial US of bilateral lower extremities( [facility], [facility]) which revealed abnormal biphasic flow under right knee without plaques. After being sent to the ED, Pt scheduled for Aortogram, RLE angiogram, Thrombolysis. Pt now POD #1. Resting in bed comfortably and endorses a tingling, burning sensation in his right foot. Pt's exhibits no sensory deficits in his right lower extremity and dorsalis pedis pulse is palable at 2+ . REVIEW OF SYSTEMS: CONSTITUTIONAL: Absent: fever, chills, diaphoresis, generalized weakness, malaise, loss of appetite, weight change HEENT: Absent: rhinorrhea, nasal congestion, throat pain, throat swelling, difficulty swallowing, mouth swelling, ear pain, eye pain, visual changes CARDIOVASCULAR: Absent: chest pain, syncope, palpitations, irregular heart rate, lightheadedness , peripheral edema RESPIRATORY: Absent: cough, shortness of breath, dyspnea with exertion, orthopnea, wheezing, stridor, hemoptysis GASTROINTESTINAL: Absent: abdominal pain, abdominal distension, nausea, vomiting, diarrhea, constipation, melena, hematochezia GENITOURINARY: Absent: dysuria, frequency, urgency, hesitancy, hematuria, flank pain, genital pain MUSCULOSKELETAL: PRESENT: Right leg anf foot pain SKIN: Femoral Catheter left groin. HEMATOLOGIC/IMMUNOLOGIC: Absent: easy bleeding, easy bruising, lymphadenopathy, frequent infections ENDOCRINE: Absent: unexplained weight gain, unexplained weight loss, heat intolerance, cold intolerance NEUROLOGIC: Absent: headache, focal weakness or paresthesias, dizziness, unsteady gait, seizure, mental status changes, bladder or bowel incontinence PSYCHIATRIC: Absent: anxiety, depression, suicidal or homicidal ideation, hallucinations. PHYSICAL EXAMINATION Vital Signs - 24 hr 12/19/17 12/19/17 12/19/17 01:00 01:25 06:00 Temperature 98.2 F 98.0 F 98.6 F Pulse Rate 71 74 Pulse Rate [ 83 Left Radial] Respiratory 20 17 20 Rate Blood Pressure 116/85 120/78 Blood Pressure 117/74 [Right Arm] O2 Sat by Pulse 98 Oximetry (%) 12/19/17 12/19/17 12/19/17 08:45 10:00 13:11 Temperature 98.0 F 98.6 F Pulse Rate 71 74 Pulse Rate [ Left Radial] Respiratory 18 14 Rate Blood Pressure 109/63 106/64 Blood Pressure [Right Arm] O2 Sat by Pulse 99 96 Oximetry (%) 12/19/17 12/19/17 12/19/17 13:30 13:45 14:00 Temperature Pulse Rate 68 67 59 L Pulse Rate [ Left Radial] Respiratory 18 11 L 11 L Rate Blood Pressure 109/69 113/71 111/75 Blood Pressure [Right Arm] O2 Sat by Pulse 100 100 100 Oximetry (%) 12/19/17 12/19/17 12/19/17 14:15 14:30 15:03 Temperature 98.3 F 98.1 F Pulse Rate 52 L 58 L 58 L Pulse Rate [ Left Radial] Respiratory 12 12 10 L Rate Blood Pressure 112/71 106/69 111/75 Blood Pressure [Right Arm] O2 Sat by Pulse 99 97 Oximetry (%) 12/19/17 12/19/17 16:23 16:55 Temperature Pulse Rate 57 L Pulse Rate [ Left Radial] Respiratory 18 18 Rate Blood Pressure 118/76 Blood Pressure [Right Arm] O2 Sat by Pulse 97 Oximetry (%) GENERAL: AAOx3. HEAD: NC/AT EYES: EOMI. EARS, NOSE, THROAT: WNL NECK: Supple LUNGS: CTA B/L HEART: RRR ABDOMEN: NT, ND, No HSM MUSCULOSKELETAL: WNL UPPER EXTREMITIES: 2+ upper extremities. Well perfused, no CCE. LOWER EXTREMITIES: Right Dorsalis Pedis pulse 2+ post thrombolysis and angiogram. NEUROLOGICAL: no Neuro Defs. PSYCHIATRIC: Cooperative. Good eye contact. Appropriate mood and affect. SKIN: Warm. Laboratory Results - last 24 hr 12/19/17 12/19/17 06:30 06:30 WBC 8.8 RBC 4.82 Hgb 15.3 Hct 44.1 MCV 91.7 MCH 31.7 MCHC 34.6 RDW 13.2 Plt Count 431 MPV 7.3 L Absolute Neuts (auto) 4.2 Neutrophils % 47.5 D Lymphocytes % 42.6 H D Monocytes % 6.8 Eosinophils % 2.2 D Basophils % 0.9 Nucleated RBC % 0 Sodium 139 Potassium 4.3 Chloride 105 Carbon Dioxide 26 Anion Gap 8 BUN 10 Creatinine 0.8 Creat Clearance w eGFR > 60 Random Glucose 92 Calcium 9.2 Magnesium 2.3 Total Bilirubin 0.2 AST 12 L ALT 23 Alkaline Phosphatase 97 D Total Protein 7.0 Albumin 3.8 Active Medications Generic Name Dose Route Start Last Admin Trade Name Freq PRN Reason Stop Dose Admin Acetaminophen 650 mg 12/19/17 11:05 Tylenol - PO Q6H PRN FEVER Diphenhydramine HCl 25 mg 12/19/17 15:02 Benadryl Injection - IVPUSH Q4H PRN FOR ITCHING Fentanyl 50 mcg 12/19/17 11:40 12/19/17 13:53 Sublimaze Injection - IVPUSH 12/19/17 20:00 50 mcg [id number] PRN Administration PAIN-PACU ORDER X 4 DOSES ONLY Sodium Chloride 1,000 mls @ 50 mls/hr 12/18/17 18:45 12/19/17 13:00 Normal Saline - IV 100 mls ASDIR ABNER Administration Alteplase, Recombinant 25 mg/ 250 mls @ 10 mls/hr 12/19/17 11:30 12/19/17 13: 00 Sodium Chloride CVP 12/20/17 11:29 20 mls ASDIR ABNER Administration 1 MG/HR Lactated Ringer's 1,000 mls @ 125 mls/hr 12/19/17 13:00 Lactated Ringers Solution IV ASDIR ABNER Heparin Sodium/Dextrose 25,000 units in 500 mls @ 10 mls/hr 12/19/17 14:15 13:00 Heparin Infusion - IVPB 20 mls ASDIR ABNER Administration Morphine Sulfate 4 mg 12/19/17 15:14 Morphine Sulfate IVPUSH Q4H PRN -PAIN Nicotine 14 mg 12/19/17 16:15 12/19/17 16:20 Nicoderm Patch - TD 14 mg DAILY ABNER Administration Ondansetron HCl 4 mg 12/19/17 11:40 Zofran Injection IVPUSH 12/20/17 11:39 Q6H PRN NAUSEA AND/OR VOMITING Promethazine HCl 12.5 mg 12/19/17 11:40 Phenergan Injection - IVPUSH 12/20/17 11:39 Q6H PRN NAUSEA-FOR RESCUE AFTER 15 MIN ASSESSMENT/PLAN: 42 y/o gentleman s/p aortogram, thrombolysis (Right Popliteal Artery Dissection) . Patient currently on ECOS device, returning to OR with Dr Smart tomorrow to remove sheath. Incentive Spirometry Pain control: Morphine Sulfate 4 mg IVPUSH Q4H PRN Tylenol 650 mg PO Q6H PRN Nausea: Zofran Injection 4 mg IVPUSH Q6H PRN Phenergan Injection 12.5 mg IVPUSH Q6H PRN DVt ppx: Heparin Infusion 25,000 units in 500 mls @ 10 mls/hr Alteplase 250 mls @ 10 mls/hr FEN Lactated Ringer's Monitor electrolytes NPO Dispo: We will continue to follow the patient. Thank you for this consultative opportunity. Visit type - Emergency Visit Emergency Visit: No - New Patient This patient is new to me today: Yes Date on this admission: 12/19/17 - Critical Care Critical Care patient: Yes Total Critical Care Time (in minutes): 36 Critical Care Statement: The care of this patient involved high complexity decision making to prevent further life threatening deterioration of the patient 's condition and/or to evaluate & treat vital organ system(s) failure or risk of failure.
[2017-12-19] MEDS: morphine SULFATE 4 MG/ML VIAL IVPUSH PRN (20:31)
[2017-12-19 20:42] LABS: HEMATOCRIT 42.9 % (35.4-49); HEMOGLOBIN 14.5 GM/dL (11.7-16.9); MCH 30.7 pg (25.7-33.7); MCHC 33.7 g/dl (32.0-35.9); MEAN CELL VOLUME 91.3 fl (80-96); MEAN PLT VOLUME 7.6 fl (7.5-11.1); PLATELET COUNT 364 K/MM3 (134-434); RDW 13.4 % (11.9-15.9); WHITE BLOOD COUNT 12.4 K/mm3 (4.0-10.0)
[2017-12-19 20:47] LABS: ANION GAP 8 (8-16); BLOOD UREA NITROGEN 7 mg/dL (7-18); CALCIUM 8.6 mg/dL (8.5-10.1); CHLORIDE 108 mmol/L (98-107); CO2 26 mmol/L (21-32); CREATININE 0.8 mg/dL (0.7-1.3); GLUCOSE,RANDOM 73 mg/dL (74-106); POTASSIUM 3.8 mmol/L (3.5-5.1); SODIUM 142 mmol/L (136-145)
[2017-12-19 21:03] LABS: INR 0.96 (0.82-1.09); PROTHROMBIN TIME (PATIENT) 10.9 SEC (9.7-13.0)
[2017-12-19] MEDS ORDERED: DEXTROSE 5%-NORMAL SALINE 1,000 ML IV SCH (21:15)
[2017-12-20] MEDS: morphine SULFATE 4 MG/ML VIAL IVPUSH PRN ×2 (00:51→04:21)
[2017-12-20 02:26] LABS: HEMATOCRIT 43.9 % (35.4-49); HEMOGLOBIN 14.9 GM/dL (11.7-16.9); MCH 30.9 pg (25.7-33.7); MCHC 33.9 g/dl (32.0-35.9); MEAN CELL VOLUME 91.2 fl (80-96); MEAN PLT VOLUME 7.3 fl (7.5-11.1); PLATELET COUNT 372 K/MM3 (134-434); RBC 4.81 M/mm3 (4.00-5.60); RDW 13.5 % (11.9-15.9); WHITE BLOOD COUNT 10.4 K/mm3 (4.0-10.0)
[2017-12-20 02:28] LABS: PROTHROMBIN TIME (PATIENT) 11.3 SEC (9.7-13.0)
[2017-12-20 02:36] LABS: ANION GAP 5 (8-16); BLOOD UREA NITROGEN 6 mg/dL (7-18); CALCIUM 8.7 mg/dL (8.5-10.1); CHLORIDE 107 mmol/L (98-107); CO2 28 mmol/L (21-32); CREATININE 0.8 mg/dL (0.7-1.3); GLUCOSE,RANDOM 93 mg/dL (74-106); POTASSIUM 3.9 mmol/L (3.5-5.1); SODIUM 140 mmol/L (136-145)
[2017-12-20] MEDS ORDERED: LIDOCAINE HCL/PF 2% SDV 5ML VIAL ONE (07:25)
[2017-12-20] MEDS ORDERED: MIDAZOLAM HCL 2 MG/2 ML SINGLE DOSE VIAL ONE ×2 (07:25→07:58)
[2017-12-20] MEDS ORDERED: PROPOFOL 20 ML ONE ×2 (07:25)
[2017-12-20] MEDS ORDERED: LIDOCAINE HCL 1%, 10 MG/ML (20ML VIAL) ONE (07:29)
[2017-12-20 07:56] LABS: BASO % 0.4 % (0-2.0); EOS % 0.7 % (0-4.5); HEMATOCRIT 42.4 % (35.4-49); HEMOGLOBIN 14.6 GM/dL (11.7-16.9); LYMPH % 21.7 % (8-40); MCH 31.2 pg (25.7-33.7); MCHC 34.4 g/dl (32.0-35.9); MEAN CELL VOLUME 90.6 fl (80-96); MEAN PLT VOLUME 7.2 fl (7.5-11.1); MONO % 9.8 % (3.8-10.2); NEUT % 67.4 % (42.8-82.8); PLATELET COUNT 340 K/MM3 (134-434); RBC 4.67 M/mm3 (4.00-5.60); RDW 13.3 % (11.9-15.9); WHITE BLOOD COUNT 9.3 K/mm3 (4.0-10.0)
[2017-12-20] MEDS ORDERED: ceFAZolin SODIUM 1 GM VIAL ONE (08:00)
[2017-12-20] MEDS ORDERED: ceFAZolin SODIUM 1 GM VIAL IVPB ONE (08:02)
[2017-12-20 08:15] LABS: ALBUMIN 3.4 g/dl (3.4-5.0); ANION GAP 6 (8-16); BLOOD UREA NITROGEN 6 mg/dL (7-18); CALCIUM 8.7 mg/dL (8.5-10.1); CHLORIDE 106 mmol/L (98-107); CO2 28 mmol/L (21-32); CREATININE 0.8 mg/dL (0.7-1.3); GLUCOSE,RANDOM 96 mg/dL (74-106); POTASSIUM 3.9 mmol/L (3.5-5.1); SGOT/AST 12 U/L (15-37); SGPT/ALT 20 U/L (12-78); SODIUM 140 mmol/L (136-145)
[2017-12-20 08:17] LABS: ALK PHOS 83 U/L (45-117); BILIRUBIN,TOTAL 0.7 mg/dL (0.2-1.0); TOT PROT 6.3 g/dl (6.4-8.2)
[2017-12-20 08:26] LABS: INR 1.04 (0.82-1.09); PROTHROMBIN TIME (PATIENT) 11.8 SEC (9.7-13.0)
[2017-12-20] MEDS ORDERED: KETOROLAC TROMETHAMINE 30 MG/1 ML VIAL ONE (08:27)
[2017-12-20] MEDS ORDERED: PROTAMINE SULFATE 50 MG/5 ML VIAL ONE (08:28)
--- NOTE | 2017-12-20 08:51 | OP ---
Operative Note - Note: Operative Date: 12/20/17 Pre-Operative Diagnosis: RLE ischemia Operation: RLE angiogram, SFA/Popliteal artery angioplasty, with SFA/Popliteal artery stent placement. Post-Operative Diagnosis: Same as Pre-op Surgeon: Anish Smart Anesthesia: Fractional Estimated Blood Loss (mls): 20 Operative Report Dictated: Yes
--- NOTE | 2017-12-20 08:56 | PN ---
Progress Note (short form) - Note Progress Note: Vascular Surgery S/P angioplasty and stent placement for dissected artery. Pt now has palpable pulses bl lower ext. Plavix started and pt should go home on plavix. Pt cannot smoke. Follow up in office in one week. [phone] Can be DC home in am. Anish Smart DO
--- NOTE | 2017-12-20 09:26 | PN ---
Progress Note (short form) - Note Progress Note: Patient seen and examined today In the ICU. Chart reviewed. awake and comfortable denies pain S/P angioplasty and stent placement for dissected artery Today Vital Signs Temp 98.8 F 12/20/17 07:00 Pulse 76 12/20/17 07:00 Resp 21 12/20/17 07:00 BP 116/73 12/20/17 07:00 Pulse Ox 97 12/19/17 21:00 Intake & Output 12/19/17 12/19/17 12/20/17 11:59 23:59 11:59 Intake Total 600 620 700 Output Total 1420 900 Balance 600 -800 -200 Weight 186 lb 8 oz 186 lb 8 oz Intake: IV 600 620 700 D5-Ns - 1,000 ml @ 50 mls 500 /hr IV ASDIR ABNER Rx#: [id number] HEPARIN INFUSION - 25,000 40 100 units In 500 ml @ 10 mls /hr IVPB ASDIR ABNER Rx#: [id number] Lactated Ringers Solution 200 1,000 ml @ 125 mls/hr IV ASDIR ABNER Rx#: [id number] altepase 40 100 Output: Urine 1400 900 Barber 1100 900 Estimated Blood Loss 20 Other: Voiding Method Toilet Indwelling Catheter # Unmeasured Voids Void 1 Height 5 ft 10 in Body Mass Index (BMI) 26.7 Weight Measurement Method [facility] Active Medications Acetaminophen (Tylenol -) 650 mg PO Q6H PRN PRN Reason: FEVER Last Admin: 12/19/17 18:21 Dose: 650 mg Chlorhexidine Gluconate (Hibiclens For Decolonization -) 1 applic TP HS [facility] Clopidogrel Bisulfate (Plavix -) 75 mg PO DAILY [facility] Diphenhydramine HCl (Benadryl Injection -) 25 mg IVPUSH Q4H PRN PRN Reason: FOR ITCHING Alteplase, Recombinant 25 mg/ (Sodium Chloride) 250 mls @ 10 mls/hr CVP ASDIR ABNER Stop: 12/20/17 11:29 Last Admin: 12/19/17 13:00 Dose: 20 mls Heparin Sodium/Dextrose (Heparin Infusion -) 25,000 units in 500 mls @ 10 mls/ hr IVPB ASDIR ABNER Last Admin: 12/19/17 19:00 Dose: 10 mls/hr Dextrose/Sodium Chloride (D5-Ns -) 1,000 mls @ 50 mls/hr IV ASDIR [facility] Last Admin: 12/19/17 21:17 Dose: 50 mls/hr Morphine Sulfate (Morphine Sulfate) 4 mg IVPUSH Q4H PRN PRN Reason: -PAIN Last Admin: 12/20/17 04:21 Dose: 4 mg Mupirocin (Bactroban Ointment (For Decolonization) -) 1 applic NS BID [facility] Stop: 12/25/17 09:59 Nicotine (Nicoderm Patch -) 14 mg TD DAILY [facility] Last Admin: 12/19/17 16:20 Dose: 14 mg Ondansetron HCl (Zofran Injection) 4 mg IVPUSH Q6H PRN PRN Reason: NAUSEA AND/OR VOMITING Stop: 12/20/17 11:39 Promethazine HCl (Phenergan Injection -) 12.5 mg IVPUSH Q6H PRN PRN Reason: NAUSEA-FOR RESCUE AFTER 15 MIN Stop: 12/20/17 11:39 CBC, BMP 12/20/17 05:30 12/20/17 05:30 physical exam Constitutional: Yes: No Distress, Calm. Comfortable Cardiovascular: Yes: Regular Rate and Rhythm Respiratory: Yes: CTA Bilaterally Gastrointestinal: Yes: Normal Bowel Sounds, Soft. No: Tenderness Edema: No Peripheral Pulses: pulses present both feet. Problem List - Problems (1) Leg pain Code(s): M79.606 - PAIN IN LEG, UNSPECIFIED (2) Artery dissection Code(s): I77.70 - DISSECTION OF UNSPECIFIED ARTERY (3) Popliteal artery injury Code(s): S85.009A - UNSP INJURY OF POPLITEAL ARTERY, UNSP LEG, INIT ENCNTR Assessment/Plan stable S/P angioplasty and stent placement for dissected artery Today Continue present care off heparin started on Plavix Pain control monitor in ICU today we will follow. Discussed with nursing staff also Critical care time--30 minutes
[2017-12-20] MEDS ORDERED: morphine SULFATE 4 MG/ML VIAL IVPUSH PRN (09:28)
[2017-12-20] MEDS ORDERED: ALTEPLASE (CATHFLO) 25 MG in SODIUM CHLORIDE 250 ML CVP SCH (09:28)
[2017-12-20] MEDS ORDERED: ACETAMINOPHEN 325 MG TABLET (FP) PO PRN (09:28)
[2017-12-20] MEDS ORDERED: PROMETHAZINE HCL 25 MG/1 ML VIAL IVPUSH PRN (09:28)
[2017-12-20] MEDS ORDERED: ONDANSETRON 4 MG/2 ML VIAL IVPUSH PRN (09:28)
[2017-12-20] MEDS ORDERED: HEPARIN INFUSION - 25,000 UNITS/500 ML INFUS.BAG IVPB SCH (09:28)
[2017-12-20] MEDS ORDERED: DEXTROSE 5%-NORMAL SALINE 1,000 ML IV SCH (09:28)
[2017-12-20] MEDS ORDERED: MUPIROCIN 2% TOPICAL OINTMENT FOR DECOLONIZATION NS SCH (10:00)
[2017-12-20] MEDS ORDERED: CLOPIDOGREL BISULFATE 75 MG TABLET (FP) PO SCH (10:00)
[2017-12-20] MEDS ORDERED: NICOTINE 14 MG/24 HOURS TOPICAL PATCH TD SCH (10:00)
--- NOTE | 2017-12-20 11:45 | PN ---
Teaching Attending Note Name of Resident: Faraz Ham ATTENDING PHYSICIAN STATEMENT I saw and evaluated the patient. I reviewed the resident's note and discussed the case with the resident. I agree with the resident's findings and plan as documented. SUBJECTIVE: Patient seen and examined in the ICU. Awake and alert. Went to OR today for sheath removal. No CP or SOB. Intake & Output 12/17/17 12/18/17 12/19/17 12/20/17 23:59 23:59 23:59 23:59 Intake Total 1220 1300 Output Total 1420 950 Balance -200 350 Weight 189 lb 186 lb 8 oz 186 lb 8 oz Last Vital Signs Temp Pulse Resp BP Pulse Ox 99.6 F 71 18 102/61 95 12/20/17 10:00 12/20/17 10:00 12/20/17 10:00 12/20/17 10:00 12/20/17 10:00 Active Medications Acetaminophen (Tylenol -) 650 mg PO Q6H PRN PRN Reason: FEVER Chlorhexidine Gluconate (Hibiclens For Decolonization -) 1 applic TP HS [facility] Clopidogrel Bisulfate (Plavix -) 75 mg PO DAILY [facility] Last Admin: 12/20/17 10:45 Dose: 75 mg Diphenhydramine HCl (Benadryl Injection -) 25 mg IVPUSH Q4H PRN PRN Reason: FOR ITCHING Dextrose/Sodium Chloride (D5-Ns -) 1,000 mls @ 50 mls/hr IV ASDIR [facility] Last Admin: 12/20/17 11:00 Dose: 50 mls/hr Heparin Sodium/Dextrose (Heparin Infusion -) 25,000 units in 500 mls @ 10 mls/ hr IVPB ASDIR [facility] Morphine Sulfate (Morphine Sulfate) 4 mg IVPUSH Q4H PRN PRN Reason: -PAIN Mupirocin (Bactroban Ointment (For Decolonization) -) 1 applic NS BID [facility] Stop: 12/25/17 09:59 Last Admin: 12/20/17 11:07 Dose: 1 applic Nicotine (Nicoderm Patch -) 14 mg TD DAILY [facility] Last Admin: 12/20/17 11:13 Dose: 14 mg GENERAL: Awake, alert, and fully oriented, in no acute distress HEAD: No signs of trauma EYES: PERRLA, EOMI, sclera anicteric, conjunctiva clear ENT: Auricles normal inspection, hearing grossly normal, nares patent, oropharynx clear without exudates. Moist mucosa NECK: Normal ROM, supple, no lymphadenopathy, JVD, or masses LUNGS: Breath sounds equal, clear to auscultation bilaterally. No wheezes, and no crackles HEART: Regular rate and rhythm, normal S1 and S2, no murmurs, rubs or gallops ABDOMEN: Soft, nontender, normoactive bowel sounds. No guarding, no rebound. No masses EXTREMITIES: warm, (+) PP. Normal Left DP pulse. Normal range of motion, no edema. No clubbing or cyanosis. BACK: No midline spinal tenderness in cervical/thoracic/lumbar region NEUROLOGICAL: non-focal. SKIN: Warm, Dry, normal turgor, no rashes or lesions noted. Laboratory Results - last 24 hr 12/19/17 12/19/17 12/19/17 19:35 19:35 19:35 WBC 12.4 H RBC 4.70 Hgb 14.5 Hct 42.9 MCV 91.3 MCH 30.7 MCHC 33.7 RDW 13.4 Plt Count 364 MPV 7.6 Absolute Neuts (auto) Neutrophils % Lymphocytes % Monocytes % Eosinophils % Basophils % Nucleated RBC % PT with INR INR PTT (Actin FS) 31.1 Fibrinogen Sodium 142 Potassium 3.8 Chloride 108 H Carbon Dioxide 26 Anion Gap 8 BUN 7 Creatinine 0.8 Creat Clearance w eGFR > 60 Random Glucose 73 L D Calcium 8.6 Total Bilirubin AST ALT Alkaline Phosphatase Total Protein Albumin 12/19/17 12/19/17 12/20/17 19:35 21:02 01:40 WBC RBC Hgb Hct MCV MCH MCHC RDW Plt Count MPV Absolute Neuts (auto) Neutrophils % Lymphocytes % Monocytes % Eosinophils % Basophils % Nucleated RBC % PT with INR 10.90 INR 0.96 PTT (Actin FS) 54.3 H D Fibrinogen 236.0 L Sodium Potassium Chloride Carbon Dioxide Anion Gap BUN Creatinine Creat Clearance w eGFR Random Glucose Calcium Total Bilirubin AST ALT Alkaline Phosphatase Total Protein Albumin 12/20/17 12/20/17 12/20/17 01:40 01:40 01:40 WBC 10.4 H RBC 4.81 Hgb 14.9 Hct 43.9 MCV 91.2 MCH 30.9 MCHC 33.9 RDW 13.5 Plt Count 372 MPV 7.3 L Absolute Neuts (auto) Neutrophils % Lymphocytes % Monocytes % Eosinophils % Basophils % Nucleated RBC % PT with INR 11.30 INR 1.00 PTT (Actin FS) Fibrinogen 219.0 L Sodium 140 Potassium 3.9 Chloride 107 Carbon Dioxide 28 Anion Gap 5 L BUN 6 L Creatinine 0.8 Creat Clearance w eGFR > 60 Random Glucose 93 D Calcium 8.7 Total Bilirubin AST ALT Alkaline Phosphatase Total Protein Albumin 12/20/17 12/20/17 12/20/17 05:30 05:30 07:20 WBC 9.3 RBC 4.67 Hgb 14.6 Hct 42.4 MCV 90.6 MCH 31.2 MCHC 34.4 RDW 13.3 Plt Count 340 MPV 7.2 L Absolute Neuts (auto) 6.3 Neutrophils % 67.4 D Lymphocytes % 21.7 D Monocytes % 9.8 Eosinophils % 0.7 Basophils % 0.4 Nucleated RBC % 0 PT with INR 11.80 INR 1.04 PTT (Actin FS) Fibrinogen Sodium 140 Potassium 3.9 Chloride 106 Carbon Dioxide 28 Anion Gap 6 L BUN 6 L Creatinine 0.8 Creat Clearance w eGFR > 60 Random Glucose 96 Calcium 8.7 Total Bilirubin 0.7 AST 12 L ALT 20 Alkaline Phosphatase 83 D Total Protein 6.3 L Albumin 3.4 12/20/17 12/20/17 07:20 10:30 WBC RBC Hgb Hct MCV MCH MCHC RDW Plt Count MPV Absolute Neuts (auto) Neutrophils % Lymphocytes % Monocytes % Eosinophils % Basophils % Nucleated RBC % PT with INR INR PTT (Actin FS) 33.7 D Fibrinogen 262.0 Sodium Potassium Chloride Carbon Dioxide Anion Gap BUN Creatinine Creat Clearance w eGFR Random Glucose Calcium Total Bilirubin AST ALT Alkaline Phosphatase Total Protein Albumin Problem List - Problems (1) Leg pain Code(s): M79.606 - PAIN IN LEG, UNSPECIFIED (2) Artery dissection Code(s): I77.70 - DISSECTION OF UNSPECIFIED ARTERY (3) Popliteal artery injury Code(s): S85.009A - UNSP INJURY OF POPLITEAL ARTERY, UNSP LEG, INIT ENCNTR Assessment/Plan 4.9 mm Left LL lung nodule. (No previous CT imaging for comparison) Plavix Sheath was removed this AM O2 as needed Incentive Spirometry Pain control Follow H&H Outpatient follow up of lung nodule in [address] Sagastume Critical care time spent in reviewing chart, evaluating patient and formulating plan - 36 minutes.
[2017-12-20 12:00] VITALS: BMI 26.6
--- NOTE | 2017-12-20 15:20 | PN ---
Physical Exam: SUBJECTIVE: Patient seen and examined today before and after sheath removal. Pt no longer feeling tingling sensation in right foot. States he is feeling well. Denies cp, sob, [place], nausea, or vomiting. OBJECTIVE: Vital Signs Period Temp Pulse Resp BP Sys/Villagomez Pulse Ox Last 24 Hr 98.8 F-99.6 F 57-87 12-21 100-127/61-93 95-97 GENERAL: NAD, AAOx3 HEAD: NC/AT EYES: EOMI ENT: WNL NECK: WNL LUNGS: CTA B/L HEART: RRR, -m/r/g ABDOMEN: No HSM, NT, ND EXTREMITIES: DP B/L 2+, warm to touch NEUROLOGICAL: No Neuro Defs SKIN: Warm, no lesions. Laboratory Results - last 24 hr 12/19/17 12/19/17 12/19/17 19:35 19:35 19:35 WBC 12.4 H RBC 4.70 Hgb 14.5 Hct 42.9 MCV 91.3 MCH 30.7 MCHC 33.7 RDW 13.4 Plt Count 364 MPV 7.6 Absolute Neuts (auto) Neutrophils % Lymphocytes % Monocytes % Eosinophils % Basophils % Nucleated RBC % PT with INR INR PTT (Actin FS) 31.1 Fibrinogen Sodium 142 Potassium 3.8 Chloride 108 H Carbon Dioxide 26 Anion Gap 8 BUN 7 Creatinine 0.8 Creat Clearance w eGFR > 60 Random Glucose 73 L D Calcium 8.6 Total Bilirubin AST ALT Alkaline Phosphatase Total Protein Albumin 12/19/17 12/19/17 12/20/17 19:35 21:02 01:40 WBC RBC Hgb Hct MCV MCH MCHC RDW Plt Count MPV Absolute Neuts (auto) Neutrophils % Lymphocytes % Monocytes % Eosinophils % Basophils % Nucleated RBC % PT with INR 10.90 INR 0.96 PTT (Actin FS) 54.3 H D Fibrinogen 236.0 L Sodium Potassium Chloride Carbon Dioxide Anion Gap BUN Creatinine Creat Clearance w eGFR Random Glucose Calcium Total Bilirubin AST ALT Alkaline Phosphatase Total Protein Albumin 12/20/17 12/20/17 12/20/17 01:40 01:40 01:40 WBC 10.4 H RBC 4.81 Hgb 14.9 Hct 43.9 MCV 91.2 MCH 30.9 MCHC 33.9 RDW 13.5 Plt Count 372 MPV 7.3 L Absolute Neuts (auto) Neutrophils % Lymphocytes % Monocytes % Eosinophils % Basophils % Nucleated RBC % PT with INR 11.30 INR 1.00 PTT (Actin FS) Fibrinogen 219.0 L Sodium 140 Potassium 3.9 Chloride 107 Carbon Dioxide 28 Anion Gap 5 L BUN 6 L Creatinine 0.8 Creat Clearance w eGFR > 60 Random Glucose 93 D Calcium 8.7 Total Bilirubin AST ALT Alkaline Phosphatase Total Protein Albumin 12/20/17 12/20/17 12/20/17 05:30 05:30 07:20 WBC 9.3 RBC 4.67 Hgb 14.6 Hct 42.4 MCV 90.6 MCH 31.2 MCHC 34.4 RDW 13.3 Plt Count 340 MPV 7.2 L Absolute Neuts (auto) 6.3 Neutrophils % 67.4 D Lymphocytes % 21.7 D Monocytes % 9.8 Eosinophils % 0.7 Basophils % 0.4 Nucleated RBC % 0 PT with INR 11.80 INR 1.04 PTT (Actin FS) Fibrinogen Sodium 140 Potassium 3.9 Chloride 106 Carbon Dioxide 28 Anion Gap 6 L BUN 6 L Creatinine 0.8 Creat Clearance w eGFR > 60 Random Glucose 96 Calcium 8.7 Total Bilirubin 0.7 AST 12 L ALT 20 Alkaline Phosphatase 83 D Total Protein 6.3 L Albumin 3.4 12/20/17 12/20/17 07:20 10:30 WBC RBC Hgb Hct MCV MCH MCHC RDW Plt Count MPV Absolute Neuts (auto) Neutrophils % Lymphocytes % Monocytes % Eosinophils % Basophils % Nucleated RBC % PT with INR INR PTT (Actin FS) 33.7 D Fibrinogen 262.0 Sodium Potassium Chloride Carbon Dioxide Anion Gap BUN Creatinine Creat Clearance w eGFR Random Glucose Calcium Total Bilirubin AST ALT Alkaline Phosphatase Total Protein Albumin Active Medications Generic Name Dose Route Start Last Admin Trade Name Freq PRN Reason Stop Dose Admin Acetaminophen 650 mg 12/20/17 09:28 Tylenol - PO Q6H PRN FEVER Chlorhexidine Gluconate 1 applic 12/20/17 22:00 Hibiclens For Decolonization - TP HS [facility] Clopidogrel Bisulfate 75 mg 12/20/17 10:00 12/20/17 10:45 Plavix - PO 75 mg DAILY [facility] Administration Diphenhydramine HCl 25 mg 12/20/17 09:28 Benadryl Injection - IVPUSH Q4H PRN FOR ITCHING Dextrose/Sodium Chloride 1,000 mls @ 12/20/17 09:28 12/20/17 11:00 D5-Ns - IV 50 mls/hr ASDIR [facility] Administration Morphine Sulfate 4 mg 12/20/17 09:28 12/20/17 14:45 Morphine Sulfate IVPUSH 4 mg Q4H PRN Administration -PAIN Mupirocin 1 applic 12/20/17 10:00 12/20/17 11:07 Bactroban Ointment (For Decolonization) - NS 12/25/17 09:59 1 applic BID [facility] Administration Nicotine 14 mg 12/20/17 10:00 12/20/17 11:13 Nicoderm Patch - TD 14 mg DAILY [facility] Administration ASSESSMENT/PLAN: 42 y/o gentleman with no pmh who presented to the ED sent from [facility] for worsening RLE pain s/p fall while at work on November 11. POD #2- RLE angiogram, SFA/Popliteal artery angioplasty, with SFA/Popliteal artery stent placement. Sheath was removed this AM Incentive Spirometry Pain control-Morphine Sulfate 4 mg IVPUSH Q4H PRN, Tylenol 650 mg PO Q6H PRN Pt now has palpable pulses bl lower ext. Plavix started and pt should go home on plavix 75 mg PO Daily Pt cannot smoke. FEN Dextrose/Sodium Chloride 50 mls/hr Monitor Electrolytes Regular Diet DVT ppx: Heparin D/C'ed this afternoon. SCD's Dispo: Transferring to med-surg Visit type - Emergency Visit Emergency Visit: No - New Patient This patient is new to me today: Yes Date on this admission: 12/20/17 - Critical Care Critical Care patient: Yes Total Critical Care Time (in minutes): 40 Critical Care Statement: The care of this patient involved high complexity decision making to prevent further life threatening deterioration of the patient 's condition and/or to evaluate & treat vital organ system(s) failure or risk of failure.
[2017-12-20] MEDS: oxyCODONE HCL 5 MG TABLET PO PRN (18:04)
[2017-12-20] MEDS ORDERED: HEPARIN NA (PORCINE) 5,000 UNITS/ML 1ML VIAL IVPUSH PRN ×2 (18:07)
[2017-12-20] MEDS: ACETAMINOPHEN 325 MG TABLET (FP) PO PRN (21:38)
[2017-12-20] MEDS ORDERED: CHLORHEXIDINE GLUCONATE 4% CLEANSER FOR DECOLONIZATION TP SCH (22:00)
[2017-12-21] MEDS: oxyCODONE HCL 5 MG TABLET PO PRN ×4 (02:48→20:14)
[2017-12-21] MEDS: ACETAMINOPHEN 325 MG TABLET (FP) PO PRN ×3 (06:18→21:36)
--- NOTE | 2017-12-21 08:52 | PN ---
Progress Note (short form) - Note Progress Note: Post op day#1.S/P Right L Extremity angiogram,angioplasty and stent placement under MAC uneventful.Patient stable.No any anesthgesia related problem.Patient DC from the anesthesia care.
[2017-12-21] MEDS: CLOPIDOGREL BISULFATE 75 MG TABLET (FP) PO SCH (09:51)
[2017-12-21] MEDS: DEXTROSE 5%-NORMAL SALINE 1,000 ML IV SCH (09:51)
[2017-12-21] MEDS: NICOTINE 14 MG/24 HOURS TOPICAL PATCH TD SCH (09:52)
--- NOTE | 2017-12-21 10:42 | DS ---
Physical Examination Vital Signs: Vital Signs Temperature 98.8 F 12/21/17 08:58 Pulse Rate 87 12/21/17 08:58 Respiratory Rate 18 12/21/17 08:58 Blood Pressure 105/55 12/21/17 08:58 O2 Sat by Pulse Oximetry (%) 97 12/20/17 21:00 Constitutional: Yes: No Distress, Calm Cardiovascular: Yes: Regular Rate and Rhythm Respiratory: Yes: CTA Bilaterally Gastrointestinal: Yes: Normal Bowel Sounds, Soft. No: Tenderness Edema: No Peripheral Pulses WNL: Yes Labs: CBC, BMP 12/20/17 05:30 12/20/17 05:30 Discharge Summary Reason For Visit: INJ OF POPLITEAL ARTERY/ARTERIAL DISECTI Current Active Problems Artery dissection (Acute) Leg pain (Acute) Popliteal artery injury (Acute) Hospital Course: Admitted for right leg pain after a fall from work November 11- found to have right popliteal artery obstruction Underwent angiogram , angioplasty, stent placement Stable for dc home on PO Plavix Condition: Stable - Instructions Diet, Activity, Other Instructions: Pt will meed to remain home from work for 3 weeks Disposition: HOME - Home Medications Comprehensive Discharge Medication List: Ambulatory Orders NK [No Known Home Medication] 12/18/17
[2017-12-21] MEDS: BACLOFEN 10 MG TABLET (FP) PO SCH ×2 (12:05→21:36)
[2017-12-22] MEDS: oxyCODONE HCL 5 MG TABLET PO PRN ×3 (02:16→18:18)
[2017-12-22] MEDS: CLOPIDOGREL BISULFATE 75 MG TABLET (FP) PO SCH (09:23)
[2017-12-22] MEDS: NICOTINE 14 MG/24 HOURS TOPICAL PATCH TD SCH (09:24)
[2017-12-22] MEDS: BACLOFEN 10 MG TABLET (FP) PO SCH ×2 (09:24→21:26)
[2017-12-22] MEDS: DEXTROSE 5%-NORMAL SALINE 1,000 ML IV SCH ×2 (09:32→18:24)
--- NOTE | 2017-12-22 10:24 | PN ---
Progress Note, Physician Chief Complaint: unable to go home yesterday as he had severe back pain No urinary issues difficult to ambulate No pain in lower extremities - Current Medication List Current Medications: Active Medications Acetaminophen (Tylenol -) 650 mg PO Q6H PRN PRN Reason: FEVER Last Admin: 12/21/17 21:36 Dose: 650 mg Baclofen (Lioresal -) 10 mg PO BID [facility] Last Admin: 12/22/17 09:24 Dose: 10 mg Clopidogrel Bisulfate (Plavix -) 75 mg PO DAILY [facility] Last Admin: 12/22/17 09:23 Dose: 75 mg Diphenhydramine HCl (Benadryl Injection -) 25 mg IVPUSH Q4H PRN PRN Reason: FOR ITCHING Dextrose/Sodium Chloride (D5-Ns -) 1,000 mls @ 50 mls/hr IV ASDIR [facility] Last Admin: 12/22/17 09:32 Dose: 50 mls/hr Nicotine (Nicoderm Patch -) 14 mg TD DAILY [facility] Last Admin: 12/22/17 09:24 Dose: 14 mg Oxycodone HCl (Roxicodone -) 5 mg PO Q4H PRN PRN Reason: PAIN LEVEL 6-10 Last Admin: 12/22/17 09:27 Dose: 5 mg - Objective Vital Signs: Vital Signs Temperature 98.9 F 12/22/17 06:17 Pulse Rate 70 12/22/17 06:17 Respiratory Rate 19 12/22/17 06:17 Blood Pressure 110/62 12/22/17 06:17 O2 Sat by Pulse Oximetry (%) 97 12/21/17 21:00 Constitutional: Yes: Anxious Cardiovascular: Yes: Regular Rate and Rhythm Respiratory: Yes: CTA Bilaterally Gastrointestinal: Yes: Normal Bowel Sounds, Soft. No: Tenderness Musculoskeletal: Yes: Other (pain in right side of lower back) Edema: No Peripheral Pulses WNL: Yes Labs: CBC, BMP 12/20/17 05:30 12/20/17 05:30 INR, PTT INR 1.04 (0.82-1.09) 12/20/17 07:20 Fibrinogen 262.0 mg/dL (238-498) 12/20/17 07:20 Problem List - Problems (1) Leg pain Code(s): M79.606 - PAIN IN LEG, UNSPECIFIED (2) Artery dissection Code(s): I77.70 - DISSECTION OF UNSPECIFIED ARTERY (3) Popliteal artery injury Code(s): S85.009A - UNSP INJURY OF POPLITEAL ARTERY, UNSP LEG, INIT ENCNTR Assessment/Plan PLAN s/p angiogram/angioplasty Check CT lumbar spine, CT abd/pelvis Spoke with Vascular surgeon- r/o retroperitneal hemorrhage- advised CT abd/ pelvis pain control
[2017-12-22] MEDS ORDERED: morphine CARPU-JECT 2 MG/1 ML DISP.SYRIN IVPUSH PRN (10:25)
[2017-12-22] MEDS ORDERED: MORPHINE SULFATE 2 MG/ML VIAL IVPUSH PRN ×2 (10:36→19:40)
[2017-12-22 10:46] LABS: BASO % 0.4 % (0-2.0); EOS % 2.3 % (0-4.5); HEMATOCRIT 39.7 % (35.4-49); HEMOGLOBIN 13.6 GM/dL (11.7-16.9); LYMPH % 19.2 % (8-40); MCH 31.2 pg (25.7-33.7); MCHC 34.3 g/dl (32.0-35.9); MEAN PLT VOLUME 6.8 fl (7.5-11.1); MONO % 9.2 % (3.8-10.2); NEUT % 68.9 % (42.8-82.8); PLATELET COUNT 328 K/MM3 (134-434); RBC 4.36 M/mm3 (4.00-5.60); RDW 13.4 % (11.9-15.9); WHITE BLOOD COUNT 9.2 K/mm3 (4.0-10.0)
[2017-12-22 11:32] LABS: ANION GAP 5 (8-16); BLOOD UREA NITROGEN 7 mg/dL (7-18); CHLORIDE 106 mmol/L (98-107); CO2 29 mmol/L (21-32); CREATININE 0.8 mg/dL (0.7-1.3); GLUCOSE,RANDOM 89 mg/dL (74-106); SODIUM 140 mmol/L (136-145)
[2017-12-22] MEDS: SODIUM CHLORIDE 1,000 ML IV SCH (18:23)
[2017-12-22 20:27] LABS: URINE APPEARANCE CLEAR; URINE BILIRUBIN NEGATIVE (<2.0 mg/dL); URINE COLOR STRAW; URINE GLUCOSE (UA) NEGATIVE (NEGATIVE); URINE KETONE NEGATIVE (NEGATIVE); URINE LEUK ESTERASE NEGATIVE (NEGATIVE); URINE NITRITE NEGATIVE (NEGATIVE); URINE PROTEIN NEGATIVE (NEGATIVE); URINE UROBILINOGEN NEGATIVE mg/dL (0.2-1.0)
[2017-12-23] MEDS: ACETAMINOPHEN 325 MG TABLET (FP) PO PRN ×2 (04:28→18:12)
[2017-12-23] MEDS: oxyCODONE HCL 5 MG TABLET PO PRN (04:29)
[2017-12-23] MEDS: SODIUM CHLORIDE 1,000 ML IV SCH ×2 (04:30→14:34)
--- NOTE | 2017-12-23 10:12 | PN ---
Progress Note (short form) - Note Progress Note: pt seen/ examined chart reviewed feels ok wants to go home pain much better ct scan - reviewed discussed with pt Vital Signs Temp 98.5 F 12/23/17 06:00 Pulse 77 12/23/17 06:00 Resp 22 12/23/17 06:00 BP 108/55 12/23/17 06:00 Pulse Ox 97 12/22/17 09:00 Intake & Output 12/22/17 12/22/17 12/23/17 11:59 23:59 11:59 Intake Total 300 1903 1500 Output Total 800 Balance -500 1903 1500 Weight 190 lb 6 oz Intake: IV 500 1500 Normal Saline - 1,000 ml 500 1500 @ 125 mls/hr IV ASDIR [facility] Rx#:[id number] IVPB 100 Oral 300 1303 Output: Urine 800 Void 800 Other: Voiding Method Toilet Toilet Bowel Movement No Weight Measurement Method [facility] Active Medications Acetaminophen (Tylenol -) 650 mg PO Q6H PRN PRN Reason: FEVER Last Admin: 12/23/17 04:28 Dose: 650 mg Baclofen (Lioresal -) 10 mg PO BID [facility] Last Admin: 12/22/17 21:26 Dose: 10 mg Clopidogrel Bisulfate (Plavix -) 75 mg PO DAILY [facility] Last Admin: 12/22/17 09:23 Dose: 75 mg Diphenhydramine HCl (Benadryl Injection -) 25 mg IVPUSH Q4H PRN PRN Reason: FOR ITCHING Dextrose/Sodium Chloride (D5-Ns -) 1,000 mls @ 50 mls/hr IV ASDIR [facility] Last Admin: 12/22/17 18:24 Dose: Not Given Levofloxacin (Levaquin 500 Mg Premixed Ivpb -) 500 mg in 100 mls @ 100 mls/hr IVPB DAILY [facility]; Protocol Last Admin: 12/22/17 18:13 Dose: 100 mls/hr Sodium Chloride (Normal Saline -) 1,000 mls @ 125 mls/hr IV ASDIR [facility] Last Admin: 12/23/17 04:30 Dose: 125 mls/hr Morphine Sulfate (Morphine Sulfate) 2 mg IVPUSH Q4H PRN PRN Reason: PAIN LEVEL 4 - 6 Last Admin: 12/23/17 00:20 Dose: 2 mg Nicotine (Nicoderm Patch -) 14 mg TD DAILY [facility] Last Admin: 12/22/17 09:24 Dose: 14 mg Oxycodone HCl (Roxicodone -) 5 mg PO Q4H PRN PRN Reason: PAIN LEVEL 6-10 Last Admin: 12/23/17 04:29 Dose: 5 mg CBC, BMP 12/22/17 10:40 12/22/17 10:40 physical comfortable lungs- clear cvs- s1, s2 rrr abd- soft ext- no edema feet - warm. pulses + a/p stable will d/c today -- after urology and vascular eval discussed with pt/ nursing staff . will follow
[2017-12-23] MEDS: BACLOFEN 10 MG TABLET (FP) PO SCH (10:13)
[2017-12-23] MEDS: CLOPIDOGREL BISULFATE 75 MG TABLET (FP) PO SCH (10:13)
[2017-12-23] MEDS: NICOTINE 14 MG/24 HOURS TOPICAL PATCH TD SCH (10:13)
--- NOTE | 2017-12-23 16:41 | PN ---
Progress Note (short form) - Note Progress Note: VAscular Surgery Pt seen and examined. Doing well . Walking around without pain. Palpable pulse in right foot. Pt still has some back pain. CT scans all negative. Maybe pt needs neuorlogy damon de leon DO
--- NOTE | 2017-12-23 16:58 | CON.GU ---
Consult - History of Present Illness History of Present Illness: 42 yo male admitted with rt popliteal artery obstruction. Noted to have incidental 4mm Left ureteral stone. Pt denies any laft flank pain. No voiding c/ o. No prior h/o nephrolithiasis - Alcohol/Substance Use Hx Alcohol Use: No - Smoking History Smoking history: Current every day smoker Have you smoked in the past 12 months: Yes Aproximately how many cigarettes per day: 4 Home Medications - Allergies Allergies/Adverse Reactions: Allergies Allergy/AdvReac Type Severity Reaction Status Date / Time No Known Allergies Allergy Verified 12/18/17 11:14 - Home Medications Home Medications: Ambulatory Orders Baclofen 10 mg PO BID #60 tablet 12/21/17 Clopidogrel Bisulfate [Plavix -] 75 mg PO DAILY #30 tablet 12/21/17 Nicotine Patch [Nicoderm Patch -] 14 mg TD DAILY #30 patch 12/21/17 oxyCODONE HCL [Roxicodone -] 5 mg PO Q8H PRN #10 tablet MDD 3 12/21/17 Physical Exam- Vital Signs: Vital Signs Temperature 98 F 12/23/17 10:00 Pulse Rate 72 12/23/17 10:00 Respiratory Rate 19 12/23/17 10:00 Blood Pressure 122/75 12/23/17 10:00 O2 Sat by Pulse Oximetry (%) 97 12/22/17 09:00 Renal/: Yes: Other (no CVAT) Labs: CBC, BMP 12/22/17 10:40 12/22/17 10:40 Imaging - Results Cat Scan: Image Reviewed Problem List - Problems (1) Left ureteral calculus Assessment/Plan: stone should pass with conservative management. advised increased fkuid intake. May d/c from standpoint and f/u as outpt Code(s): N20.1 - CALCULUS OF URETER
[2017-12-23 17:45] VITALS: BP 111/68; PULSE 88; TEMP 98.6
[2017-12-23] MEDS ORDERED: oxyCODONE HCL 5 MG TABLET PO PRN (17:56)
--- NOTE | 2017-12-23 22:49 | DS ---
Physical Examination Vital Signs: Vital Signs Temperature 98.6 F 12/23/17 17:43 Pulse Rate 88 12/23/17 17:43 Respiratory Rate 20 12/23/17 17:43 Blood Pressure 111/68 12/23/17 17:43 O2 Sat by Pulse Oximetry (%) 97 12/22/17 09:00 Findings/Remarks: see today progress note Labs: CBC, BMP 12/22/17 10:40 12/22/17 10:40 Discharge Summary Reason For Visit: INJ OF POPLITEAL ARTERY/ARTERIAL DISECTI Hospital Course: Hospital Course: Admitted for right leg pain after a fall from work November 11- found to have right popliteal artery obstruction Underwent angiogram , angioplasty, stent placement Stable for dc home on PO Plavix developed back pain ct scan - ok - ureter stone urology evaluated no intervention for now stable d/c home f/u with pmd - one week f/u with vascular surgeon as advised. Condition: Stable - Instructions Diet, Activity, Other Instructions: Pt will need to remain home from work for 3 weeks Referrals: Noe Tong MD [Staff Physician] - Anish Smart MD [Staff Physician] - Disposition: HOME - Home Medications Comprehensive Discharge Medication List: Ambulatory Orders Baclofen 10 mg PO BID #60 tablet 12/21/17 Clopidogrel Bisulfate [Plavix -] 75 mg PO DAILY #30 tablet 12/21/17 Nicotine Patch [Nicoderm Patch -] 14 mg TD DAILY #30 patch 12/21/17 oxyCODONE HCL [Roxicodone -] 5 mg PO Q8H PRN #10 tablet MDD 3 12/21/17
== END 2017-12-23 19:37 | disposition home or self-care (01) | DRG 173 ==
LOC: JER 11:12 → JERBED 19:29 → J6S 12-19 01:42 → JSAMEDAYSX 12-19 12:03 → JICU 12-19 14:44 → J6S 12-20 19:47
PROVIDERS: ADMIT Internal Medicine; ATTEND Internal Medicine
PROC: B40DYZZ Plain Radiography of Aorta and Bilateral Lower Extremity Arteries using Other Contrast (ICD-10-PCS; 2017-12-19)
PROC: 3E05317 Introduction of Other Thrombolytic into Peripheral Artery, Percutaneous Approach (ICD-10-PCS; 2017-12-20)
PROC: B40DYZZ Plain Radiography of Aorta and Bilateral Lower Extremity Arteries using Other Contrast (ICD-10-PCS; 2017-12-20)
PROC: 047M34Z Dilation of Right Popliteal Artery with Drug-eluting Intraluminal Device, Percutaneous Approach (ICD-10-PCS; principal; 2017-12-20 07:30)
DX: I74.3 Embolism and thrombosis of arteries of the lower extremities (principal); I77.77 Dissection of artery of lower extremity; F17.210 Nicotine dependence, cigarettes, uncomplicated; M79.606 Pain in leg, unspecified; S85.00 Unspecified injury of popliteal artery; T14.90XA Injury, unspecified, initial encounter; X58.XXXA Exposure to other specified factors, initial encounter; Y93.9 Activity, unspecified; Y92.89 Other specified places as the place of occurrence of the external cause; Y99.9 Unspecified external cause status
CPT/HCPCS: 36415; 71046-TC-FY; 72131-TC; 74176-TC; 75635-TC; 76000-TC-FY; 80048; 80053; 81003; 81015; 83735; 85025; 85027; 85384; 85610; 85730; 86850; 86900; 86901; 87086; 93005; 93010; 94010; 94760; 97116-GP; 97161-GP; 99284-25; J0475; J1644; J2997; J7030

== ENCOUNTER 2017-12-30 10:29 | Emergency (ER) | payer OTHER ==
[2017-12-30 10:48] VITALS: BP 124/68; PULSE 87; TEMP 98.7; BMI 25.5
[2017-12-30] MEDS ORDERED: DEXAMETHASONE SOD PHOSPHATE 10 MG/1 ML VIAL IM ONE (11:05)
--- NOTE | 2017-12-30 11:05 | PDOC ---
History of Present Illness - General Chief Complaint: Back Pain Stated Complaint: BACK PAIN Time Seen by Provider: 12/30/17 10:50 History Source: Patient Exam Limitations: No Limitations - History of Present Illness Initial Comments: CHIEF COMPLAINT: 42 y/o male c/o right sided low back pain. HISTORY OF PRESENT ILLNESS: The patient had a fall with injury to low back and right leg on 11/11/17. On 12/18 he was admitted here and had surgery on 12/19 and 12/[address] Smart for a femoral artery stent secondary to occluded vessel in right LE. He states since that time he has had right sided low back pain. He has taken percocet and oxy with little relief. He states he went to urgent care a few days ago and was prescribed tramadol and robaxin, which also aren't helping. He denies midline low back pain, numbness/tingling in LEs, saddle anesthesia, bowel/bladder incontinence. He has been wearing a heating pad and back brace for support. Vascular surgeon - Dr. Smart Vital signs on arrival are within normal limits. REVIEW OF SYSTEMS: GENERAL/CONSTITUTIONAL: No fever/chills. No weakness. No weight change. GENITOURINARY: No dysuria, frequency, or change in urination. No bowel or bladder incontinence. MUSCULOSKELETAL: No joint or muscle swelling or pain. No neck pain. +right sided low back pain. SKIN: No rash or easy bruising. NEUROLOGIC: No headache, vertigo, loss of consciousness, or loss of sensation. PHYSICAL EXAM: GENERAL: The patient is awake, alert, and fully oriented, in moderate discomfort , with guarded ambulation. HEAD: Normal with no signs of trauma. ABDOMEN: Soft, non-distended, non-tender even to deep palpation, no hepatomegaly or splenomegaly, no masses. BACK: No midline lumbar spine TTP or step offs. Pain reproduced with minimal palpation of right sided lumbar region of back, L3 -L5 region EXTREMITIES: Normal range of motion, no edema. NEUROLOGICAL: Normal speech, normal gait. CN II-XII grossly intact. No saddle anesthesia. SKIN: Warm, dry, normal turgor, no rashes or lesions noted. Past History - Past Medical History Allergies/Adverse Reactions: Allergies Allergy/AdvReac Type Severity Reaction Status Date / Time No Known Allergies Allergy Verified 12/18/17 11:14 Home Medications: Ambulatory Orders Baclofen 10 mg PO BID #60 tablet 12/21/17 Clopidogrel Bisulfate [Plavix -] 75 mg PO DAILY #30 tablet 12/21/17 Nicotine Patch [Nicoderm Patch -] 14 mg TD DAILY #30 patch 12/21/17 oxyCODONE HCL [Roxicodone -] 5 mg PO Q8H PRN #10 tablet MDD 3 12/21/17 Anemia: No Asthma: No Cancer: No Cardiac Disorders: No COPD: No CHF: No DVT: Yes HTN: No - Suicide/Smoking/Psychosocial Hx Smoking History: Former smoker Have you smoked in the past 12 months: Yes Number of Cigarettes Smoked Daily: 4 Information on smoking cessation initiated: No 'Breaking Loose' booklet given: 12/18/17 Hx Alcohol Use: No Drug/Substance Use Hx: No Substance Use Type: None Trauma Specific PMHX - Complaint Specific PMHX Arthritis: No Back Injury: Yes Neck Injury: No Hx Sacro Iliac Joint Dysfunction: No *Physical Exam - Vital Signs Last Vital Signs Temp Pulse Resp BP Pulse Ox 98.7 F 87 18 124/68 97 12/30/17 10:44 12/30/17 10:44 12/30/17 10:44 12/30/17 10:44 12/30/17 10:44 Medical Decision Making - Medical Decision Making A/P: 42 y/o male with exquisite muscle pain and spasm of right lumbar region of low back. He has had every pain medication possible with no relief. He does not wany any more medication that will make him drowsy. Will give IM decadron and then referral to Ortho for possible PT. Patient instructed to return to the ER with any worsening or concerning symptoms. The patient verbalizes understanding of all instructions, has no further questions and is awaiting discharge. *DC/Admit/Observation/Transfer Diagnosis at time of Disposition: Muscle spasm Low back pain Qualifiers: Chronicity: acute Back pain laterality: right Sciatica presence: without sciatica Qualified Code(s): M54.5 - Low back pain - Discharge Dispostion Disposition: HOME Condition at time of disposition: Fair - Referrals Referrals: Agus Jin MD [Staff Physician] - Anish Smart MD [Non Staff, Medical] - - Patient Instructions Printed Discharge Instructions: DI for Low Back Pain, DI for Back Spasm Additional Instructions: Discharge INstructions: -You have muscular spasms in your low back; please take prescribed medications for pain -Please call both Dr. Smart and Dr. Jin today to schedule follow up appointments. -You may need an MRI as well as physical therapy for your back. -Return to the ER if you develop any concerning symptoms such as involuntary loss of bowel or bladder, numbness in your groin or any other concerning symptoms. - Post Discharge Activity
[2017-12-30] MEDS ORDERED: DEXAMETHASONE SOD PHOSPHATE 10 MG/1 ML VIAL ONE (11:06)
== END 2017-12-30 11:49 | disposition home or self-care (01) ==
LOC: JERFT 10:29
PROC: 3E0233Z Introduction of Anti-inflammatory into Muscle, Percutaneous Approach (ICD-10-PCS; principal; 2017-12-30)
DX: M62.830 Muscle spasm of back (principal); Z91.81 History of falling; Z95.820 Peripheral vascular angioplasty status with implants and grafts
CPT/HCPCS: 99281-25; J1100

== ENCOUNTER 2019-02-12 07:30 | Day surgery (SDC) | payer OTHER ==
[2019-02-06 17:04] VITALS: BMI 26.4
[2019-02-12] MEDS ORDERED: LIDOCAINE HCL 1%, 10 MG/ML (20ML VIAL) ONE (09:14)
[2019-02-12] MEDS ORDERED: HEPARIN NA (PORCINE) 5,000 UNITS/ML 1ML VIAL ONE ×2 (09:14→10:35)
[2019-02-12] MEDS ORDERED: ONDANSETRON 4 MG/2 ML VIAL IVPUSH PRN (09:28)
[2019-02-12] MEDS ORDERED: oxyCODONE HCL 5 MG TABLET PO PRN (09:28)
[2019-02-12] MEDS ORDERED: LACTATED RINGERS SOLUTION 1,000 ML IV SCH (09:30)
--- NOTE | 2019-02-12 09:31 | HP ---
Admitting History and Physical - Admission Chief Complaint: RLE claudication. Pt has right lower ext stent that is closed. Pt last seen one year ago. Pt continues to smoke, and stopped taking his plavix. Limitations to Obtaining History: No Limitations - Smoking History Smoking history: Current every day smoker Have you smoked in the past 12 months: Yes Aproximately how many cigarettes per day: 5 - Alcohol/Substance Use Hx Alcohol Use: No Home Medications - Allergies Allergies/Adverse Reactions: Allergies Allergy/AdvReac Type Severity Reaction Status Date / Time No Known Allergies Allergy Verified 02/12/19 07:45 - Home Medications Home Medications: Ambulatory Orders Clopidogrel Bisulfate [Plavix -] 75 mg PO DAILY 01/20/19 Acetaminophen [Tylenol -] 500 mg PO Q4H PRN 02/06/19 Review of Systems - Review of Systems Constitutional: reports: No Symptoms Eyes: reports: No Symptoms HENT: reports: No Symptoms Neck: reports: No Symptoms Cardiovascular: reports: No Symptoms Respiratory: reports: No Symptoms Gastrointestinal: reports: No Symptoms Genitourinary: reports: No Symptoms Musculoskeletal: reports: No Symptoms Integumentary: reports: No Symptoms Neurological: reports: No Symptoms Endocrine: reports: No Symptoms Hematology/Lymphatic: reports: No Symptoms Physical Examination Vital Signs: Vital Signs Temperature 98.6 F 02/12/19 07:48 Pulse Rate 74 02/12/19 07:48 Respiratory Rate 16 02/12/19 07:48 Blood Pressure 118/68 02/12/19 07:48 O2 Sat by Pulse Oximetry (%) 96 02/12/19 07:48 Constitutional: Yes: Well Nourished, No Distress, Calm Eyes: Yes: WNL, Conjunctiva Clear, EOM Intact HENT: Yes: WNL, Atraumatic, Normocephalic Neck: Yes: WNL, Supple, Trachea Midline Cardiovascular: Yes: WNL, Regular Rate and Rhythm Respiratory: Yes: WNL, Regular, CTA Bilaterally Gastrointestinal: Yes: WNL, Normal Bowel Sounds Musculoskeletal: Yes: WNL Extremities: Yes: WNL Edema: No Peripheral Pulses WNL: No Integumentary: Yes: WNL Neurological: Yes: WNL, Alert, Oriented ...Motor Strength: WNL Psychiatric: Yes: WNL Problem List - Problems (1) Claudication of right lower extremity Assessment/Plan: For angiogram, angioplasty today. Code(s): I73.9 - PERIPHERAL VASCULAR DISEASE, UNSPECIFIED
[2019-02-12] MEDS ORDERED: LIDOCAINE HCL/PF 2% SDV 5ML VIAL ONE (09:43)
[2019-02-12] MEDS ORDERED: PROPOFOL 20 ML ONE ×3 (09:44→10:40)
[2019-02-12] MEDS ORDERED: MIDAZOLAM HCL 2 MG/2 ML SINGLE DOSE VIAL ONE ×2 (09:45→10:06)
[2019-02-12] MEDS ORDERED: ceFAZolin SODIUM 1 GM VIAL ONE (10:03)
[2019-02-12] MEDS ORDERED: LIDOCAINE HCL 1%, 10 MG/ML (20ML VIAL) PNB ONE (10:10)
--- NOTE | 2019-02-12 11:35 | OP ---
Operative Note - Note: Operative Date: 02/12/19 Pre-Operative Diagnosis: RLE claudication Operation: Aortogram, RLE angiogram, SFA angioplasty with viabahn stent placement Findings: SFA stent occlusion Post-Operative Diagnosis: Same as Pre-op Surgeon: Anish Smart Anesthesia: Fractional Estimated Blood Loss (mls): 50 Operative Report Dictated: Yes
[2019-02-12] MEDS ORDERED: oxyCODONE HCL 5 MG TABLET ONE (13:31)
[2019-02-12 15:42] VITALS: BP 110/67; PULSE 73; TEMP 98.3
--- NOTE | 2019-02-18 15:21 | OP ---
DATE OF OPERATION: 02/12/2019 PREOPERATIVE DIAGNOSIS: Right lower extremity claudication. POSTOPERATIVE DIAGNOSIS: Right lower extremity claudication. PROCEDURE: Aortogram, right lower extremity angiogram, superficial femoral artery angioplasty, popliteal artery angioplasty with covered stent placement. SURGEON: Anish Jean DO ANESTHESIA: Fractional. BLOOD LOSS: 50 mL. INDICATIONS: Patient is a 43-year-old male that was seen 1 year ago after he had some sort of trauma to his right leg, and he had thrombosis of his right lower extremity. He went on to have some tPA infusion and had an SFA stent placed. He then never came back and never followed up with us. The patient is pretty much noncompliant. He stopped taking his Plavix because he did not want to take any medications anymore and came in with right lower extremity claudication. On preoperative ultrasound, the SFA stent was occluded. It was decided that he would need an angioplasty. Patient was consented for the procedure understanding all risks, benefits, alternatives. Was then taken to the operating room. DESCRIPTION OF PROCEDURE: Once in the operating room, was laid on the operating table in a supine manner, and the area of the right and left groin were prepped and draped in a sterile surgical manner. We then went ahead and injected 10 mL of lidocaine 1% over the left common femoral artery. We then took our micropuncture needle and punctured the left common femoral artery. Micropuncture wire was inserted. Micropuncture sheath was inserted, and a traditional 5-Kenyan sheath was inserted. We then placed a 0.035 floppy guidewire up to the aorta followed by an Omni Flush catheter. We then shot an aortogram via hand injection showing that the aorta and the iliac arteries were without any disease. We then placed a wire up and over to the right common femoral artery followed by an Omni Flush catheter. We then shot an angiogram of the right lower extremity showing the common femoral artery, profunda, and the proximal SFA were patent. The mid SFA was patent. The distal SFA had a stent, which was occluded going down to the above-knee popliteal artery. It looks like the patient had 2 stents placed in the adductor canal, and that is where the problem is in the mid stent. The patient has 2-vessel runoff into the foot. At this point, we placed a 0.035 stiff guidewire into the SFA. Removed our Omni Flush catheter. We placed a 6 x 55 crossover sheath up and over, 5000 units of IV heparin were administered to the patient. Using a Quick-Cross catheter, we were able to get down into the occluded stents and get our wire down into the tibial arteries. We then went ahead and used a 5 x 80 balloon and performed angioplasty of the entire stent. Once that was done, we then shot an angiogram showing that the stent was patent, but the mid stent where there were 2 stents that were coming together was collapsing. At this point, we decided that we should place a 7 x 5 Viabahn stent, and a 7 x 5 Viabahn stent was placed to the above-knee popliteal artery, and angioplasty of this was performed using a 6 x 4 Ultraverse balloon. Completion angiogram now showed that the runoff was patent, the stent was patent, and patient now had a palpable pulse. At this point, we brought out sheath up and over. StarClose device was successfully deployed in the left common femoral artery. Pressure was held for 5 minutes. After there was no bleeding, the area was wet and dried, and Dermabond was placed. Patient tolerated the procedure with no complications. Patient was transferred to PACU in stable condition. ANISH JEAN DO [id number]
== END 2019-02-12 15:43 | disposition home or self-care (01) ==
LOC: JASU-SURG 07:30
PROVIDERS: ATTEND Surgery Vascular Surgery
PROC: 047K3ZZ Dilation of Right Femoral Artery, Percutaneous Approach (ICD-10-PCS; 2019-02-12)
PROC: 047M3EZ Dilation of Right Popliteal Artery with Two Intraluminal Devices, Percutaneous Approach (ICD-10-PCS; principal; 2019-02-12 09:15)
DX: I73.9 Peripheral vascular disease, unspecified (principal); I77.89 Other specified disorders of arteries and arterioles; Z72.0 Tobacco use; Z91.14 Patient's other noncompliance with medication regimen
CPT/HCPCS: 37226; C1877; 76000-TC-FY; 94760; J1644

== ENCOUNTER 2019-03-05 07:49 | Day surgery (SDC) | payer OTHER ==
[2019-03-04 19:37] VITALS: BMI 26.4
[2019-03-05] MEDS ORDERED: LIDOCAINE HCL 1%, 10 MG/ML (20ML VIAL) NR ONE ×3 (09:14→09:45)
[2019-03-05] MEDS ORDERED: MIDAZOLAM HCL 2 MG/2 ML SINGLE DOSE VIAL ONE ×4 (09:33→09:37)
[2019-03-05] MEDS ORDERED: SUCCINYLCHOLINE CHLORIDE 200 MG/10 ML SYRINGE ONE (09:36)
[2019-03-05] MEDS ORDERED: PROPOFOL 20 ML ONE ×2 (09:36)
[2019-03-05] MEDS ORDERED: ceFAZolin SODIUM 1 GM VIAL IVPB ONE (09:44)
[2019-03-05] MEDS ORDERED: HEPARIN NA (PORCINE) 5,000 UNITS/ML 1ML VIAL ONE (09:58)
--- NOTE | 2019-03-05 10:36 | HP ---
Admitting History and Physical - Admission Chief Complaint: RLE claudication . Pt has stent placed in right sfa. Pt did not take plavix afterwards. He chose not to. Now with occluded stents. Pt needs angiogram. Pt continues to smoke. Limitations to Obtaining History: No Limitations - Smoking History Smoking history: Former smoker Have you smoked in the past 12 months: Yes Aproximately how many cigarettes per day: 5 If you are a former smoker, when did you quit?: 02/23/19 - Alcohol/Substance Use Hx Alcohol Use: No Home Medications - Allergies Allergies/Adverse Reactions: Allergies Allergy/AdvReac Type Severity Reaction Status Date / Time No Known Allergies Allergy Verified 02/12/19 07:45 - Home Medications Home Medications: Ambulatory Orders Clopidogrel Bisulfate [Plavix -] 75 mg PO DAILY #30 tablet 02/12/19 Aspirin Coated [Ecotrin -] 81 mg PO DAILY 03/05/19 Review of Systems - Review of Systems Constitutional: reports: No Symptoms Eyes: reports: No Symptoms HENT: reports: No Symptoms Neck: reports: No Symptoms Cardiovascular: reports: No Symptoms Respiratory: reports: No Symptoms Gastrointestinal: reports: No Symptoms Genitourinary: reports: No Symptoms Musculoskeletal: reports: No Symptoms Integumentary: reports: No Symptoms Neurological: reports: No Symptoms Endocrine: reports: No Symptoms Hematology/Lymphatic: reports: No Symptoms Psychiatric: reports: No Symptoms Physical Examination Vital Signs: Vital Signs Temperature 98.2 F 03/05/19 08:31 Pulse Rate 75 03/05/19 08:31 Respiratory Rate 18 03/05/19 08:31 Blood Pressure 110/64 03/05/19 08:31 O2 Sat by Pulse Oximetry (%) 96 03/05/19 08:31 Constitutional: Yes: Well Nourished, No Distress, Calm Eyes: Yes: WNL, Conjunctiva Clear, EOM Intact HENT: Yes: WNL, Atraumatic, Normocephalic Neck: Yes: WNL, Supple, Trachea Midline Cardiovascular: Yes: WNL, Regular Rate and Rhythm Respiratory: Yes: WNL, Regular, CTA Bilaterally Gastrointestinal: Yes: WNL, Normal Bowel Sounds Musculoskeletal: Yes: WNL Extremities: Yes: WNL Edema: No Peripheral Pulses WNL: No Integumentary: Yes: WNL Neurological: Yes: WNL, Alert, Oriented ...Motor Strength: WNL Psychiatric: Yes: WNL Problem List - Problems (1) Claudication of right lower extremity Assessment/Plan: For angiogram today . Code(s): I73.9 - PERIPHERAL VASCULAR DISEASE, UNSPECIFIED
[2019-03-05] MEDS ORDERED: CLOPIDOGREL BISULFATE 75 MG TABLET (FP) PO ONE ×2 (10:37→11:00)
--- NOTE | 2019-03-05 10:39 | OP ---
Operative Note - Note: Operative Date: 03/05/19 Pre-Operative Diagnosis: RLE claudication Operation: Aortogram, RLE angiogram, SFA DCB angioplasty Findings: STent occlusion Post-Operative Diagnosis: Same as Pre-op Anesthesia: Fractional Estimated Blood Loss (mls): 50 Operative Report Dictated: Yes
[2019-03-05] MEDS ORDERED: ONDANSETRON 4 MG/2 ML VIAL IVPUSH PRN (10:42)
[2019-03-05] MEDS ORDERED: PROMETHAZINE HCL 25 MG/1 ML VIAL IVPUSH PRN (10:42)
[2019-03-05] MEDS ORDERED: LACTATED RINGERS SOLUTION 1,000 ML IV SCH (10:45)
[2019-03-05] MEDS ORDERED: CLOPIDOGREL BISULFATE 75 MG TABLET (FP) ONE (10:57)
[2019-03-05] MEDS: oxyCODONE HCL 5 MG TABLET PO PRN ×3 (13:55→23:24)
--- NOTE | 2019-03-05 14:35 | EKG ---
Test Reason : Blood Pressure : / mmHG Vent. Rate : 069 BPM Atrial Rate : 069 BPM P-R Int : 166 ms QRS Dur : 094 ms QT Int : 376 ms P-R-T Axes : 038 011 019 degrees QTc Int : 402 ms NORMAL SINUS RHYTHM NORMAL ECG WHEN COMPARED WITH ECG OF 18-DEC-2017 23:35, NO SIGNIFICANT CHANGE WAS FOUND Confirmed by JULISSA CHIRINOS MD ([id number]) on 03/05/2019 2:35:21 PM Referred By: Anish Smart Confirmed By:JULISSA CHIRINOS MD
[2019-03-06] MEDS: oxyCODONE HCL 5 MG TABLET PO PRN (03:22)
[2019-03-06 07:08] VITALS: BP 102/58; PULSE 69; TEMP 98.4
[2019-03-06] MEDS ORDERED: PT OWN MED DRAWER 7, Y5N ONE ×2 (07:56→08:00)
[2019-03-06] MEDS ORDERED: CLOPIDOGREL BISULFATE 75 MG TABLET (FP) PO SCH (10:00)
--- NOTE | 2019-03-24 13:39 | OP ---
DATE OF OPERATION: 03/05/2019 PREOPERATIVE DIAGNOSIS: Right lower extremity claudication. POSTOPERATIVE DIAGNOSIS: Right lower extremity claudication. PROCEDURE: Aortogram, right lower extremity angiogram, superficial femoral artery drug-coated balloon angioplasty. FINDINGS: Stent occlusion. ANESTHESIA: Fractional. BLOOD LOSS: 50 mL. The patient is a 43-year-old male, who has an SFA stent in place after an injury 1 year ago. Patient never followed up. The patient stopped taking his Plavix and continued smoking despite being told that he should not smoke. He then recently had angioplasty about 3-1/2 weeks ago for SFA stent occlusion and at that point he was told to restart his Plavix and stop smoking. He now comes back 3 weeks later into the office complaining of right lower extremity pain. Preoperative ultrasound shows that he has some disease above where the stents are in the SFA. Patient does continue to smoke and is taking Plavix sporadically instead of taking it every single day. The patient is very non-compliant and does not follow directions. Patient came in to ambulatory surgery. The patient was consented for the procedure, understanding all risks, benefits, alternatives. He was then taken to the operating room. Once in the operating room, he was placed on the operating table in supine manner. The area of the right and left groin were prepped and draped in a sterile surgical manner. We then injected 10 mL lidocaine 1% over the left common femoral artery. We then took our micropuncture needle to puncture the left common femoral artery. Micropuncture wire was inserted, micropuncture sheath was inserted, and a traditional 5-Portuguese sheath was inserted. We then placed a 0.035 floppy guidewire up into the aorta, followed by Omni Flush catheter. We then shot an aortogram via hand injection, showing that the aorta and iliac arteries were without any disease. We then placed a 0.035 floppy guidewire up and over to the right common femoral artery and Omni Flush catheter followed. We then shot an angiogram of the right lower extremity, showing that the common femoral artery, the profunda, and the proximal SFA were patent. The distal SFA stent was patent but the artery proximal to that was severely diseased with progression of disease and patient had 2-vessel runoff going into the foot. At this point, we placed a 0.035 stiff guidewire into the SFA. We removed our Omni Flush catheter. We placed a 6 x 45 crossover sheath. Then 5000 units of IV heparin was administered to the patient. We then went ahead and used a 7 x 10 Ultraverse balloon and performed angioplasty of the entire stent and the vessel above and the SFA proximal to the stent. Completion angiogram now showed that the SFA was patent, there was good brisk flow all the way down into the foot. Patient had a good dopplerable and palpable pulse. At this point, we brought our sheath up and over, StarClose device was successfully deployed in the left common femoral artery. Pressure was held for 5 minutes. After there was no more bleeding, the area was wet and dried and a Dermabond was placed. Patient tolerated the procedure with no complications. Patient transferred to PACU in stable condition. Patient again severely urged to stop smoking. Patient was urged to take his medications properly and on time and be regimented. TUSHAR JEAN DO [id number]
== END 2019-03-06 08:26 | disposition home or self-care (01) ==
LOC: JASU-SURG 07:49 → JASUSAT 07:49 → J8W 12:47 → JASUSAT 03-06 08:26
PROVIDERS: ATTEND Surgery Vascular Surgery
PROC: B41DYZZ Fluoroscopy of Aorta and Bilateral Lower Extremity Arteries using Other Contrast (ICD-10-PCS; 2019-03-05)
PROC: 047K3D1 Dilation of Right Femoral Artery with Intraluminal Device, using Drug-Coated Balloon, Percutaneous Approach (ICD-10-PCS; principal; 2019-03-05 09:00)
DX: I70.211 Atherosclerosis of native arteries of extremities with intermittent claudication, right leg (principal); Z87.891 Personal history of nicotine dependence
CPT/HCPCS: 36245; 37226; C1877; C2623; 76000-TC-FY; 93005; 93010; 94760; J1644

== ENCOUNTER 2019-04-13 06:03 | Day surgery (SDC) | payer OTHER ==
[2019-04-13 06:35] LABS: BASO % 0.8 % (0-2.0); EOS % 1.4 % (0-4.5); HEMATOCRIT 45.8 % (35.4-49); HEMOGLOBIN 15.7 GM/dL (11.7-16.9); LYMPH % 34.2 % (8-40); MCH 30.6 pg (25.7-33.7); MCHC 34.2 g/dl (32.0-35.9); MEAN CELL VOLUME 89.5 fl (80-96); MONO % 7.8 % (3.8-10.2); NEUT % 55.8 % (42.8-82.8); PLATELET COUNT 453 K/MM3 (134-434); RBC 5.12 M/mm3 (4.00-5.60); RDW 13.1 % (11.9-15.9); WHITE BLOOD COUNT 7.7 K/mm3 (4.0-10.0)
[2019-04-13 06:48] VITALS: BMI 26.4
[2019-04-13 06:49] LABS: INR 0.86 (0.83-1.09); PROTHROMBIN TIME (PATIENT) 10.1 SEC (9.7-13.0)
[2019-04-13 07:04] LABS: ALBUMIN 3.8 g/dl (3.4-5.0); BILIRUBIN,TOTAL 0.5 mg/dL (0.2-1); BLOOD UREA NITROGEN 10.9 mg/dL (7-18); CALCIUM 9.5 mg/dL (8.5-10.1); POTASSIUM 4.2 mmol/L (3.5-5.1); TOT PROT 6.9 g/dl (6.4-8.2)
[2019-04-13] MEDS ORDERED: SODIUM CHLORIDE 0.9% P/F 10 ML VIAL IJ ONE (07:07)
[2019-04-13] MEDS ORDERED: ceFAZolin SODIUM 1 GM VIAL ONE (07:07)
[2019-04-13] MEDS ORDERED: PROPOFOL 20 ML ONE ×4 (07:08→08:23)
[2019-04-13] MEDS ORDERED: MIDAZOLAM HCL 2 MG/2 ML SINGLE DOSE VIAL ONE ×3 (07:08→07:43)
[2019-04-13] MEDS ORDERED: HEPARIN NA (PORCINE) 5,000 UNITS/ML 1ML VIAL ONE ×2 (07:10→07:22)
[2019-04-13] MEDS ORDERED: LIDOCAINE HCL 1%, 10 MG/ML (20ML VIAL) ONE (07:10)
[2019-04-13] MEDS ORDERED: ONDANSETRON 4 MG/2 ML VIAL IVPUSH PRN (07:19)
[2019-04-13] MEDS ORDERED: oxyCODONE HCL 5 MG TABLET PO PRN ×2 (07:19)
[2019-04-13] MEDS ORDERED: LACTATED RINGERS SOLUTION 1,000 ML IV SCH (07:30)
--- NOTE | 2019-04-13 07:38 | HP ---
Admitting History and Physical - Admission Chief Complaint: Right lower extremity claudiciation Limitations to Obtaining History: No Limitations - Smoking History Smoking history: Former smoker Have you smoked in the past 12 months: Yes Aproximately how many cigarettes per day: 5 If you are a former smoker, when did you quit?: 02/23/19 - Alcohol/Substance Use Hx Alcohol Use: No Home Medications - Allergies Allergies/Adverse Reactions: Allergies Allergy/AdvReac Type Severity Reaction Status Date / Time No Known Allergies Allergy Verified 04/13/19 06:35 - Home Medications Home Medications: Ambulatory Orders Aspirin Coated [Ecotrin -] 81 mg PO DAILY 03/05/19 oxyCODONE HCL [Roxicodone -] 5 mg PO Q4H PRN #10 tablet MDD 6 03/05/19 Review of Systems - Review of Systems Constitutional: reports: No Symptoms Eyes: reports: No Symptoms HENT: reports: No Symptoms Neck: reports: No Symptoms Cardiovascular: reports: No Symptoms Respiratory: reports: No Symptoms Gastrointestinal: reports: No Symptoms Genitourinary: reports: No Symptoms Musculoskeletal: reports: No Symptoms Integumentary: reports: No Symptoms Neurological: reports: No Symptoms Endocrine: reports: No Symptoms Hematology/Lymphatic: reports: No Symptoms Psychiatric: reports: No Symptoms Physical Examination Vital Signs: Vital Signs Temperature 98.0 F 04/13/19 06:37 Pulse Rate 77 04/13/19 06:37 Respiratory Rate 16 04/13/19 06:37 Blood Pressure 114/69 04/13/19 06:37 O2 Sat by Pulse Oximetry (%) 98 04/13/19 06:37 Constitutional: Yes: Well Nourished, No Distress, Calm Eyes: Yes: WNL, Conjunctiva Clear, EOM Intact HENT: Yes: WNL, Atraumatic, Normocephalic Neck: Yes: WNL, Supple, Trachea Midline Cardiovascular: Yes: WNL, Regular Rate and Rhythm Respiratory: Yes: WNL, Regular, CTA Bilaterally Gastrointestinal: Yes: WNL, Normal Bowel Sounds Musculoskeletal: Yes: WNL Extremities: Yes: WNL Edema: No Integumentary: Yes: WNL Neurological: Yes: WNL, Alert, Oriented ...Motor Strength: WNL Psychiatric: Yes: WNL Labs: CBC, BMP 04/13/19 06:15 04/13/19 06:15 Problem List - Problems (1) Claudication of right lower extremity Assessment/Plan: for angiogram. today. Code(s): I73.9 - PERIPHERAL VASCULAR DISEASE, UNSPECIFIED
[2019-04-13] MEDS ORDERED: ceFAZolin SODIUM 1 GM VIAL IVPB ONE (07:50)
[2019-04-13] MEDS ORDERED: DEXAMETHASONE SOD PHOSPHATE 4 MG/1 ML VIAL ONE (07:54)
[2019-04-13] MEDS ORDERED: SUCCINYLCHOLINE CHLORIDE 200 MG/10 ML SYRINGE ONE (08:14)
[2019-04-13] MEDS ORDERED: LIDOCAINE HCL 1%, 10 MG/ML (20ML VIAL) NR ONE ×2 (08:28)
--- NOTE | 2019-04-13 08:53 | OP ---
Operative Note - Note: Operative Date: 04/13/19 Pre-Operative Diagnosis: RLE claudication Operation: Aortogram, RLE angiogram, SFA/Popliteal DCB angioplasty Findings: SFA stent occlusion Post-Operative Diagnosis: Same as Pre-op Surgeon: Anish Smart Anesthesia: Fractional Estimated Blood Loss (mls): 50 Operative Report Dictated: Yes
[2019-04-13] MEDS ORDERED: RIVAROXABAN 2.5 MG TABLET PO ONE ×2 (09:15→09:30)
[2019-04-13] MEDS ORDERED: CLOPIDOGREL BISULFATE 75 MG TABLET (FP) PO ONE (09:22)
[2019-04-13 10:17] VITALS: TEMP 98.1
--- NOTE | 2019-04-13 11:16 | OP ---
DATE OF OPERATION: 04/13/2019 PREOPERATIVE DIAGNOSIS: Right lower extremity claudication. POSTOPERATIVE DIAGNOSIS: Right lower extremity claudication. PROCEDURE: Aortogram, right lower extremity angiogram, superficial femoral artery-popliteal drug-coated balloon angioplasty. SURGEON: Anish Jean DO ANESTHESIA: Fractional. BLOOD LOSS: 50 mL. INDICATIONS: Patient is a 43-year-old male that has prior stents and arterial thrombosis 1 year ago. He had thrombolysis performed for clotting in the right leg, and at that time, he had thrombolysis overnight and then had an SFA popliteal stent placed. He was then brought back a month ago and had a Viabahn stent placed across the popliteal artery. He now comes back with right lower extremity claudication. Patient is not taking his Plavix. He said he cannot get it because his insurance does not cover it, and he continues to smoke. He was brought through ambulatory surgery for an angiogram. Patient was consented for the procedure understanding all risks, benefits, alternatives and was then taken to the operating room. DESCRIPTION OF PROCEDURE: Once in the operating room, was laid on the operating room table in supine manner. The area of the right and left groin was prepped and draped in a sterile surgical manner. We then injected 10 mL of lidocaine 1% over the left common femoral artery. Under ultrasound guidance, we were able to visualize left common femoral artery, and using our micropuncture needle, we punctured the artery. Micropuncture wire was inserted, and a traditional 5-Ind[place]ian sheath was inserted. A 0.035 floppy guidewire was placed into the aorta followed by an Omni Flush catheter. We then shot an aortogram via hand injection showing that the aorta and the iliac arteries were without any disease. We then placed a 0.035 floppy guidewire up and over to the common femoral artery, and our Omni Flush catheter followed. We then shot a right lower extremity angiogram via hand injection showing that the common femoral artery, the profunda, and the SFA were patent. The SFA popliteal stent was occluded, and patient has 2-vessel runoff beyond it. At this point, we placed a 0.035 stiff guidewire down into the SFA. We removed our Omni Flush catheter, placed a 6 x 45 crossover sheath, 5000 units of IV heparin were administered to patient. We then placed a Quick-Cross catheter down to the stent, and our 0.035 stiff guidewire was used, and we were able to cross the occluded stent successfully. We then used a 7 x 10 Ultraverse balloon and performed angioplasty of the stent. We then used a 7 x 8 Lutonix drug-coated balloon and performed angioplasty of the stent. Completion angiogram now showed that the stent was patent. There was good brisk flow. There was 2-vessel runoff into the foot. Patient has a palpable PT pulse. At this point, we brought our sheath up and over, and StarClose device was successfully deployed in the left common femoral artery. Pressure was held for 5 minutes. After there was no bleeding, area was wet and dried, and Dermabond was placed. Patient was transferred to PACU in stable condition. Patient will now be started on Xarelto 2.5 mg p.o. b.i.d., which is a PAD dose along with aspirin. ANISH JEAN DO NP/[id number]
[2019-04-13 12:26] VITALS: BP 117/71; PULSE 86
[2019-04-13] MEDS ORDERED: ACETAMINOPHEN 325 MG TABLET (FP) PO ONE ×2 (13:50→13:55)
== END 2019-04-13 14:30 | disposition home or self-care (01) ==
LOC: JASU-SURG 06:03
PROVIDERS: ATTEND Surgery Vascular Surgery
PROC: 047K3Z1 Dilation of Right Femoral Artery using Drug-Coated Balloon, Percutaneous Approach (ICD-10-PCS; 2019-04-13)
PROC: 047M3Z1 Dilation of Right Popliteal Artery using Drug-Coated Balloon, Percutaneous Approach (ICD-10-PCS; principal; 2019-04-13 08:30)
DX: I70.211 Atherosclerosis of native arteries of extremities with intermittent claudication, right leg (principal); Z72.0 Tobacco use
CPT/HCPCS: 37224; C2623; 36415; 76000-TC-FY; 80053; 85025; 85610; 94760; J1644

== ENCOUNTER 2019-05-19 10:26 | Day surgery (SDC) | payer OTHER ==
[2019-05-18 16:40] VITALS: BMI 27.2
[2019-05-19] MEDS ORDERED: LIDOCAINE HCL 1%, 10 MG/ML (20ML VIAL) ONE (11:13)
[2019-05-19] MEDS ORDERED: HEPARIN NA (PORCINE) 5,000 UNITS/ML 1ML VIAL ONE ×2 (11:13→13:46)
[2019-05-19] MEDS ORDERED: MIDAZOLAM HCL 2 MG/2 ML SINGLE DOSE VIAL ONE ×2 (13:46→14:02)
[2019-05-19] MEDS ORDERED: PROPOFOL 20 ML ONE ×3 (13:56→14:30)
[2019-05-19] MEDS ORDERED: ceFAZolin SODIUM 1 GM VIAL IVPB ONE (14:00)
[2019-05-19] MEDS ORDERED: LIDOCAINE HCL 1%, 10 MG/ML (20ML VIAL) INF ONE (14:10)
[2019-05-19] MEDS ORDERED: HEPARIN NA (PORCINE) 5,000 UNITS/ML 1ML VIAL SQ ONE (14:10)
[2019-05-19] MEDS ORDERED: RIVAROXABAN 20 MG TABLET PO ONE (14:57)
--- NOTE | 2019-05-19 15:01 | HP ---
Admitting History and Physical - Admission Chief Complaint: RLE claudication. SFA stents occluded. Limitations to Obtaining History: No Limitations - Smoking History Smoking history: Former smoker Have you smoked in the past 12 months: Yes Aproximately how many cigarettes per day: 5 If you are a former smoker, when did you quit?: 02/23/19 - Alcohol/Substance Use Hx Alcohol Use: No Home Medications - Allergies Allergies/Adverse Reactions: Allergies Allergy/AdvReac Type Severity Reaction Status Date / Time No Known Allergies Allergy Verified 05/18/19 16:24 - Home Medications Home Medications: Ambulatory Orders Rivaroxaban [Xarelto] 2.5 mg PO BID #60 tablet 04/13/19 Rivaroxaban [Xarelto -] 20 mg PO DAILY #30 tablet 05/19/19 Review of Systems - Review of Systems Constitutional: reports: No Symptoms Eyes: reports: No Symptoms HENT: reports: No Symptoms Neck: reports: No Symptoms Cardiovascular: reports: No Symptoms Respiratory: reports: No Symptoms Gastrointestinal: reports: No Symptoms Genitourinary: reports: No Symptoms Musculoskeletal: reports: No Symptoms Integumentary: reports: No Symptoms Neurological: reports: No Symptoms Endocrine: reports: No Symptoms Hematology/Lymphatic: reports: No Symptoms Physical Examination Vital Signs: Vital Signs Temperature 97.8 F 05/19/19 11:14 Pulse Rate 75 05/19/19 11:14 Respiratory Rate 20 05/19/19 11:14 Blood Pressure 111/72 05/19/19 11:14 O2 Sat by Pulse Oximetry (%) 94 L 05/19/19 11:14 Constitutional: Yes: Well Nourished, No Distress, Calm Eyes: Yes: WNL, Conjunctiva Clear, EOM Intact HENT: Yes: WNL, Atraumatic, Normocephalic Neck: Yes: WNL, Supple, Trachea Midline Cardiovascular: Yes: WNL, Regular Rate and Rhythm Respiratory: Yes: WNL, Regular, CTA Bilaterally Gastrointestinal: Yes: WNL, Normal Bowel Sounds Musculoskeletal: Yes: WNL Extremities: Yes: WNL Edema: No Peripheral Pulses WNL: No Integumentary: Yes: WNL Neurological: Yes: WNL, Alert, Oriented ...Motor Strength: WNL Psychiatric: Yes: WNL Problem List - Problems (1) Claudication of right lower extremity Assessment/Plan: For right lower ext angiogram today Code(s): I73.9 - PERIPHERAL VASCULAR DISEASE, UNSPECIFIED
[2019-05-19] MEDS ORDERED: oxyCODONE HCL 5 MG TABLET PO PRN (15:23)
[2019-05-19] MEDS ORDERED: ONDANSETRON 4 MG/2 ML VIAL IVPUSH PRN (15:23)
[2019-05-19 16:07] VITALS: TEMP 97.6
[2019-05-19 17:07] VITALS: BP 117/80; PULSE 78
--- NOTE | 2019-07-20 20:11 | OP ---
DATE OF OPERATION: 05/19/2019 PREOPERATIVE DIAGNOSIS: Right lower extremity claudication. POSTOPERATIVE DIAGNOSIS: Right lower extremity claudication. PROCEDURE: Aortogram, right lower extremity angiogram, right superficial femoral artery angioplasty. SURGEON: Anish Jean DO ANESTHESIA: Fractional. BLOOD LOSS: 50 mL. FINDINGS: SFA stents were occluded. Patient is a 43-year-old male who comes in with right lower extremity claudication. Patient has right SFA stents that keep occluding due to the fact that the patient continues to smoke. He has been asked not to smoke, but he continues to smoke and does not take his Plavix on a regular basis. Since then, he has been put on Xarelto and has not been taking his Xarelto on a regular basis as well. Patient came in through ambulatory surgery. Patient was consented for the procedure, understanding all risks, benefits, and alternatives; then taken to the operating room. Once in the operating room, he was laid on the operating table in supine manner, and the areas of the right and left groins were prepped and draped in sterile surgical manner. We then injected 10 mL of lidocaine 1% over the left common femoral artery. We then took our micropuncture needle, punctured the left common femoral artery. Micropuncture wire was inserted. Micropuncture sheath was inserted. A 0.035 floppy guidewire was inserted. We then placed a 5-Yakut sheath. We then placed a 0.035 floppy guidewire up into the aorta, followed by our Omni Flush catheter. We then shot an aortogram via hand injection, showing that the aorta and the iliac arteries were without any disease. We then used a 0.035 floppy guidewire. We went up and over to the right common femoral artery, and our Omni Flush catheter followed. We then shot an angiogram of the right lower extremity, showing that the common femoral artery, the profunda, and the SFA were patent, but the SFA stent was occluded and the artery reconstitutes in the popliteal artery and patient has 2-vessel runoff. At this point, we placed a 0.035 stiff guidewire into the SFA, removed our Omni Flush catheter. A 6 x 45 crossover sheath was placed; 5000 units of IV heparin were administered to the patient. We then went ahead and brought our 0.035 stiff guidewire down to the SFA stent, followed by a Quick-Cross catheter, and we were able to cross our stents with the wire. We then went ahead and used a 7 x 10 [place] balloon, a 7 x 10 ULTRAVERSE balloon, and performed angioplasty of the entire stent. Completion angiogram now showed that the stent was patent. There was good brisk flow all the way down into the foot with 2-vessel runoff. At this point, no more intervention was needed. We brought our sheath up and over. StarClose device was successfully deployed in the left common femoral artery. Pressure was held there for 5 minutes. After there was no more bleeding, area was wet and dried, and Dermabond was placed. Patient tolerated the procedure with no complication. Patient was transferred to PACU in stable condition. ANISH JEAN DO [id number]
== END 2019-05-19 17:55 | disposition home or self-care (01) ==
LOC: JASU-SURG 10:26
PROVIDERS: ATTEND Surgery Vascular Surgery
PROC: 047K3Z1 Dilation of Right Femoral Artery using Drug-Coated Balloon, Percutaneous Approach (ICD-10-PCS; principal; 2019-05-19 13:30)
DX: I70.211 Atherosclerosis of native arteries of extremities with intermittent claudication, right leg (principal); F17.210 Nicotine dependence, cigarettes, uncomplicated; Z91.14 Patient's other noncompliance with medication regimen
CPT/HCPCS: 76000-TC-FY; 86850; 86900; 86901; 94760; J1644

== ENCOUNTER 2019-06-16 10:54 | Day surgery (SDC) | payer OTHER ==
[2019-06-15 17:16] VITALS: BMI 27.2
[2019-06-16] MEDS ORDERED: HEPARIN NA (PORCINE) 5,000 UNITS/ML 1ML VIAL ONE (12:48)
[2019-06-16] MEDS ORDERED: LIDOCAINE HCL 1%, 10 MG/ML (20ML VIAL) ONE (12:48)
--- NOTE | 2019-06-16 13:10 | HP ---
Admitting History and Physical - Admission Chief Complaint: right lower ext claudication less than one block Limitations to Obtaining History: No Limitations - Smoking History Smoking history: Former smoker Have you smoked in the past 12 months: Yes Aproximately how many cigarettes per day: 5 If you are a former smoker, when did you quit?: 02/23/19 - Alcohol/Substance Use Hx Alcohol Use: No Home Medications - Allergies Allergies/Adverse Reactions: Allergies Allergy/AdvReac Type Severity Reaction Status Date / Time No Known Allergies Allergy Verified 05/18/19 16:24 - Home Medications Home Medications: Ambulatory Orders Rivaroxaban [Xarelto -] 20 mg PO DAILY #30 tablet 05/19/19 Review of Systems - Review of Systems Constitutional: reports: No Symptoms Eyes: reports: No Symptoms HENT: reports: No Symptoms Neck: reports: No Symptoms Cardiovascular: reports: No Symptoms Respiratory: reports: No Symptoms Gastrointestinal: reports: No Symptoms Genitourinary: reports: No Symptoms Musculoskeletal: reports: No Symptoms Integumentary: reports: No Symptoms Neurological: reports: No Symptoms Endocrine: reports: No Symptoms Hematology/Lymphatic: reports: No Symptoms Psychiatric: reports: No Symptoms Physical Examination Vital Signs: Vital Signs Temperature 98.6 F 06/16/19 11:30 Pulse Rate 77 06/16/19 11:30 Respiratory Rate 16 06/16/19 11:30 Blood Pressure 129/77 06/16/19 11:30 O2 Sat by Pulse Oximetry (%) 95 06/16/19 11:30 Constitutional: Yes: Well Nourished, No Distress, Calm Eyes: Yes: WNL, Conjunctiva Clear, EOM Intact HENT: Yes: WNL, Atraumatic, Normocephalic Neck: Yes: WNL, Supple, Trachea Midline Cardiovascular: Yes: WNL, Regular Rate and Rhythm Respiratory: Yes: WNL, Regular, CTA Bilaterally Gastrointestinal: Yes: WNL, Normal Bowel Sounds Musculoskeletal: Yes: WNL Extremities: Yes: WNL Edema: No Peripheral Pulses WNL: No Integumentary: Yes: WNL Neurological: Yes: WNL, Alert, Oriented ...Motor Strength: WNL Psychiatric: Yes: WNL Problem List - Problems (1) Claudication of right lower extremity Assessment/Plan: For angiogram today Code(s): I73.9 - PERIPHERAL VASCULAR DISEASE, UNSPECIFIED
[2019-06-16] MEDS ORDERED: MIDAZOLAM HCL 2 MG/2 ML SINGLE DOSE VIAL ONE ×4 (13:35→14:17)
[2019-06-16] MEDS ORDERED: ceFAZolin SODIUM 1 GM VIAL IVPB ONE (13:40)
[2019-06-16] MEDS ORDERED: PROPOFOL 20 ML ONE (13:44)
[2019-06-16] MEDS ORDERED: LIDOCAINE HCL 1%, 10 MG/ML (20ML VIAL) NR ONE (13:52)
[2019-06-16] MEDS ORDERED: ONDANSETRON 4 MG/2 ML VIAL IVPUSH PRN (15:05)
[2019-06-16] MEDS ORDERED: LACTATED RINGERS SOLUTION 1,000 ML IV SCH (15:15)
--- NOTE | 2019-06-16 15:19 | OP ---
Operative Note - Note: Operative Date: 06/16/19 Pre-Operative Diagnosis: RLE claudication Operation: Aortogram, RLE angiogram, SFA angioplasty with covered stent placement Findings: Instent stenosis Post-Operative Diagnosis: Same as Pre-op Surgeon: Anish Smart Anesthesia: Fractional Estimated Blood Loss (mls): 50 Operative Report Dictated: Yes
[2019-06-16] MEDS ORDERED: RIVAROXABAN 20 MG TABLET PO ONE (15:20)
[2019-06-16 17:59] VITALS: BP 110/68; PULSE 77; TEMP 98.1
--- NOTE | 2019-07-15 18:32 | OP ---
DATE OF OPERATION: 06/16/2019 PREOPERATIVE DIAGNOSIS: Right lower extremity claudication. POSTOPERATIVE DIAGNOSIS: Right lower extremity claudication. PROCEDURE PERFORMED: Aortogram, right lower extremity angiogram, superficial femoral artery angioplasty with covered stent placement. FINDINGS: In-stent stenosis. SURGEON: Anish Jean DO ANESTHESIA: Fractional. BLOOD LOSS: 50 mL. 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 Since then he had thrombolysis performed and he had a stent placed in his distal right SFA on the right side. The patient has been noncompliant since and has been smoking and not taking his medications, such as Plavix or Xarelto probably. He now comes in with his right SFA stent preoperatively occluded and needs intervention again. The patient has been offered bypass procedure, considering he is only 43 years old, definitive procedure, but the patient has been refusing the procedure. We decided at this time we would go ahead and open the stent and line the stent with a Viabahn stent so that there is good in-line flow. DESCRIPTION OF PROCEDURE: The patient came into Ambulatory Surgery. The patient was consented for the procedure, understanding all risks, benefits and alternatives. He was then taken to the operating room. Once in the operating room, the patient was laid on the operating table in the supine manner. The areas of the left and right groin were prepped and draped in a sterile surgical manner. We then went ahead and punctured the left common femoral artery using a micropuncture needle. Micropuncture wire was inserted. Micropuncture sheath was inserted. A 0.035 floppy guidewire was inserted. An additional 5-Turkmen sheath was inserted. We then placed the 0.035 floppy guidewire up into the aorta, followed by an Omni Flush catheter. We then shot an aortogram by hand injection, showing that the aorta and iliac arteries were without any disease. We then placed a 0.035 floppy guidewire up and over to the right common femoral artery and our Omni Flush catheter followed. We then shot an angiogram of the right lower extremity, showing that the SFA was patent. The common femoral artery was patent. The profunda was patent. Distal SFA stent was occluded and it goes into the above-knee popliteal artery. Below-knee popliteal artery was patent, and the patient has 2-vessel runoff into the foot. At this point we placed a 0.035 stiff guidewire into the SFA. We removed our Omni Flush catheter. We placed a 6 x 45 crossover sheath. Then 5000 units of IV heparin was administered to the patient. We then placed 0.035 stiff guidewire down into the SFA and with a Quick-Cross catheter we were able to cross our lesion. We then went ahead and used a 6 x 10 Ultraverse balloon and performed angioplasty of the entire stent. We then went ahead and used a 6 x 10 Viabahn stent and we were able to line the inside of the proximal stent going to the mid stent. We went ahead and opened the stent. We then went ahead and used a 6 x 10 Ultraverse balloon and ballooned the stent in place. Completion angiogram now showed that the stent was patent. There was good brisk flow going through the stent, and the patient had good brisk flow going down into the foot. At this point no more intervention was needed. We brought our sheath up and over. StarClose device was successfully deployed in the left common femoral artery. Pressure was held for 5 minutes. Afterwards there was no more bleeding. The area was wet and dried, and Dermabond was placed. The patient tolerated the procedure with no complications. The patient was transferred to the PACU in stable condition. ANISH JEAN DO [id number]
== END 2019-06-16 18:11 | disposition home or self-care (01) ==
LOC: JASU-SURG 10:54
PROVIDERS: ATTEND Surgery Vascular Surgery
PROC: 047K3DZ Dilation of Right Femoral Artery with Intraluminal Device, Percutaneous Approach (ICD-10-PCS; principal; 2019-06-16 13:00)
DX: I70.211 Atherosclerosis of native arteries of extremities with intermittent claudication, right leg (principal)
CPT/HCPCS: 37226; C1875; 76000-TC-FY; 94760; J1644

== ENCOUNTER 2020-02-01 08:00 | Inpatient (IN) | payer OTHER ==
[2020-01-29 10:23] VITALS: BMI 28.4
[~2020-02-01 08:00] MED LIST: CEFAZOLIN 2 GM in DEXTROSE 5%-WATER - 100 ML IVPB ONE
[2020-02-09] MEDS ORDERED: CEFAZOLIN 2 GM in DEXTROSE 5%-WATER - 100 ML IVPB ONE (07:00)
--- OUTSIDE RECORDS SUMMARY | 2020-03-08 04:14 | XMS ---
:1975 Author Organization [facility] Support Name Relationship Address Phone UE, UNEMPLOYED Unavailable Unavailable Unavailable UE Unavailable Unavailable Unavailable [employer] [place] [employer] Unavailable [address] [place] [address] JOSE KAUR MOTHER [address] [phone] [place] [address] JOSE KAUR Mother [address] [place] [address] Re-disclosure Warning The records that you are about to access may contain information from federally- assisted alcohol or drug abuse programs. If such information is present, then the following federally mandated warning applies: This information has been disclosed to you from records protected by federal confidentiality rules (42 CFR part 2). The federal rules prohibit you from making any further disclosure of this information unless further disclosure is expressly permitted by the written consent of the person to whom it pertains or as otherwise permitted by 42 CFR part 2. A general authorization for the release of medical or other information is NOT sufficient for this purpose. The Federal rules restrict any use of the information to criminally investigate or prosecute any alcohol or drug abuse patient.The records that you are about to access may contain highly sensitive health information, the redisclosure of which is protected by Article 27-F of the [facility] Public Health law. If you continue you may haveaccess to information: Regarding HIV / AIDS; Provided by facilities licensed or operated by the [facility] Office of Mental Health; or Provided by the [facility] Office for People With Developmental Disabilities. If such information is present, then the following [facility] mandated warning applies: This information has been disclosed to you from confidential records which are protected by state law. State law prohibits you from making any further disclosure of this information without the specific written consent of the person to whom it pertains, or as otherwise permitted by law. Any unauthorized further disclosure in violation of state law may result in a fine or halfway sentence or both. A general authorization for the release of medical or other information is NOT sufficient authorization for further disclosure. Insurance Providers Payer name Policy type Policy ID Covered Covered green party's Policy P av / Coverage green party ID relationship to [place] Inf ormation type goodman [facility] [id number] SP [id number] [facility] [id number] SP [id number] INS [facility] [id number] SP [id number] [facility] [id number] S [id number] [facility] [id number] SP [id number] 450 CARE HMO/POS/EPO [facility] [id number] SP [id number] [facility] [id number] SP [id number] 450 CARE HMO/POS/EPO SELF PAY INSURANCE [facility] [id number] SP [id number] HEALTHCARE Results ID Date Data Source [id number] 03/03/2020 12:50:00 PM EDT [facility] Name Value Range Interpretation Description Data Sup porting Code Source(s) Document(s ) SARS [facility] coronavirus 2 RNA This lab was ordered by [facility] and reported by [facility]. ID Date Data Source [id number] 01/27/2020 01:19:00 PM EDT [facility] Name Value Range Interpretation Code Description Data Dalila rce(s) Supporting Document(s ) [facility] SARS-CoV-2 TMA PCR This lab was ordered by CASEY NAIK M. D. [facility] ID Date Data Source [id number] 11/08/2019 12:00:00 PM EDT [facility] Name Value Range Interpretation Description Data Sup porting Code Source(s) Document(s ) SARS [facility] CORONAVIRUS 2 RNA This lab was ordered by [facility] and reported by [facility]. ID Date Data Source [id number] 11/06/2019 12:55:00 PM EDT [facility] Name Value Range Interpretation Description Data Sup porting Code Source(s) Document(s ) SARS [facility] CORONAVIRUS 2 RNA This lab was ordered by [facility] and reported by [facility]. ID Date Data Source Microbiology.[id number] 03/18/2018 11:30:00 AM EDT [facility] 400 Name Value Range Interpretation Code Description Data Dalila rce(s) Supporting Document(s ) UNK <item><content [facility] styleCode="Bold"> [facility] er Culture Status </content>
<t able><tbody><tr>< td>Specimen Number:</td><td>[id number]</td></tr ><tr><td>Sample Collection Date/Time: </td><td>03/18/20 11:30 AM</td></tr><tr>< td>Specimen Source:</td><td>U RINE</td></tr><tr ><td>Culture Status:</td><td>F inal </td></tr><tr><td >Culture Report:</td><td>N O GROWTH </td></tr><tr><td >Urine Culture:</td><td> Collection Plate Date: 03/18/2018 18:42 </td></tr></tbody ></table></item> UNK <item><content [facility] styleCode="Bold"> [facility] er Culture Report </content>
<t able><tbody><tr>< td>Specimen Number:</td><td>[id number]</td></tr ><tr><td>Sample Collection Date/Time: </td><td>03/18/20 11:30 AM</td></tr><tr>< td>Specimen Source:</td><td>U RINE</td></tr><tr ><td>Urine Culture:</td><td> Collection Plate Date: 03/18/2018 18:42 </td></tr><tr><td >Culture Status:</td><td>F inal </td></tr><tr><td >Culture Report:</td><td>N O GROWTH </td></tr></tbody ></table></item> ID Date Data Source Coagulation 03/18/2018 09:35:00 AM [facility] [id number] EDT Name Value Range Interpretation Description Data Sup porting Code Source(s) Document(s ) aPTT in 25.1-36. <content [facility] Platelet poor 5 styleCode="Bold" [place] plasma by >[facility] assay Time </content>32.1 SEC<content styleCode="Itali cs"> (25.1-36.5 SEC)</content> UNK 9.0-13.0 <content [facility] styleCode="Bold" [place] >Protime Medical </content>10.5 Center SEC<content styleCode="Itali cs"> (9.0-13.0 SEC)</content> INR in 0.80-1.2 <content [facility] Platelet poor 0 styleCode="Bold" [place] plasma by >INR Medical Coagulation </content>0.93 Center assay #<content styleCode="Itali cs"> (0.80-1.20 #)</content> Procedure Social History Code Duration Value Status Description Data Source(s ) Smoking Unknown if ever completed Unknown if ever Magnus Rileys smoked smoked [facility]
[2020-03-08 06:30] LABS: INR 0.9 (0.83-1.09); PROTHROMBIN TIME (PATIENT) 10.6 SEC (9.7-13.0)
[2020-03-08 06:32] LABS: ACTIVATED PTT 32.4 SECONDS (25.2-36.5)
[2020-03-08] MEDS ORDERED: GENTAMICIN SO4 80 MG/2 ML VIAL ONE (07:18)
[2020-03-08] MEDS ORDERED: BUPIVACAINE LIPOSOME/PF (EXPAREL) 266 MG/20 ML VIAL ONE (07:18)
[2020-03-08] MEDS ORDERED: LIDOCAINE 1%/EPI 1:100000 (50 ML MULTI DOSE VIAL) ONE (07:19)
[2020-03-08] MEDS ORDERED: THROMBIN (BOVINE) 5,000 UNIT VIAL TP ONE ×3 (07:19→10:17)
[2020-03-08] MEDS ORDERED: VANCOMYCIN 1,000 MG VIAL (RESTRICTED TO ID ONLY) ONE ×2 (07:19→08:43)
[2020-03-08] MEDS ORDERED: DEXAMETHASONE SOD PHOSPHATE 4 MG/1 ML VIAL ONE (07:20)
[2020-03-08] MEDS ORDERED: ONDANSETRON 4 MG/2 ML VIAL ONE ×2 (07:20→12:57)
[2020-03-08] MEDS ORDERED: LIDOCAINE HCL/PF 2% SDV 5ML VIAL ONE (07:20)
[2020-03-08] MEDS ORDERED: SUCCINYLCHOLINE CHLORIDE 200 MG/10 ML SYRINGE ONE (07:20)
[2020-03-08] MEDS ORDERED: PROPOFOL 20 ML ONE (07:20)
[2020-03-08] MEDS ORDERED: fentaNYL CITRATE 250 MCG/5 ML VIAL ONE (07:20)
[2020-03-08] MEDS ORDERED: ROCURONIUM BROMIDE 50 MG/5 ML SYRINGE ONE ×2 (07:20→09:12)
[2020-03-08] MEDS ORDERED: MIDAZOLAM HCL 2 MG/2 ML SINGLE DOSE VIAL ONE ×2 (07:20→08:28)
--- NOTE | 2020-03-08 08:07 | HP ---
History & Physical Update - History History: No Change - Physical Physical: No Change - Assessment Assessment: No Change - Plan Plan: No Change (Full H&P in paper chart from Titus Benites MD)
[2020-03-08] MEDS ORDERED: morphine SULFATE/PF 0.5 MG/ML (2cc Syringe - QUVA) ONE (08:21)
[2020-03-08] MEDS ORDERED: ceFAZolin SODIUM 1 GM VIAL ONE (08:43)
[2020-03-08] MEDS ORDERED: ceFAZolin SODIUM 1 GM VIAL IVPB ONE (09:00)
[2020-03-08] MEDS ORDERED: LIDOCAINE 1%/EPI 1:100000 (50 ML MULTI DOSE VIAL) NR ONE (09:10)
[2020-03-08] MEDS ORDERED: BACITRACIN 50,000 UNITS VIAL TP ONE ×2 (09:45→10:10)
[2020-03-08] MEDS ORDERED: GENTAMICIN 80MG PREMIX BAG IVPB ONE (09:45)
[2020-03-08] MEDS ORDERED: VANCOMYCIN 1,000 MG VIAL (RESTRICTED TO ID ONLY) IVPB ONE (10:12)
[2020-03-08] MEDS ORDERED: BUPIVACAINE HCL/PF 0.5% (5MG/ML) 10 ML VIAL IJ ONE (10:47)
[2020-03-08] MEDS ORDERED: BUPIVACAINE LIPOSOME/PF (EXPAREL) 266 MG/20 ML VIAL NR ONE (10:47)
[2020-03-08] MEDS ORDERED: GLYCOPYRROLATE 0.2 MG/1 ML VIAL ONE (10:52)
[2020-03-08] MEDS ORDERED: NEOSTIGMINE METHYLSULFATE 0.5 MG/1 ML - 10 ML MDV ONE (10:52)
[2020-03-08] MEDS ORDERED: ONDANSETRON 4 MG/2 ML VIAL IVPUSH PRN ×2 (11:35→12:39)
[2020-03-08] MEDS ORDERED: NALOXONE HCL 0.4 MG/ML VIAL IVPUSH PRN ×2 (11:40→12:39)
--- NOTE | 2020-03-08 11:50 | OP ---
Operative Note - Note: Operative Date: 03/08/20 Pre-Operative Diagnosis: L4/5 spondylosis Operation: L4/5 laminectomies with Right L4/5 transpedicular decompression and interbody cage/ arthrodesis with L4/5 pedicle screw fusion Post-Operative Diagnosis: Same as Pre-op Surgeon: Darion Saez Printing Screen Assembler: Miguelangel Miranda Anesthesiologist/PRODUCTION WELDING SUPERVISOR: Miguel Pitts Anesthesia: General Estimated Blood Loss (mls): 25 Operative Report Dictated: Yes
[2020-03-08] MEDS ORDERED: ACETAMINOPHEN 325 MG TABLET (FP) PO SCH ×2 (12:30→12:45)
[2020-03-08] MEDS ORDERED: morphine SULFATE/PF 0.5 MG/ML (2cc Syringe - QUVA) IT ONE (12:39)
[2020-03-08] MEDS ORDERED: oxyCODONE HCL 5 MG TABLET PO PRN (12:39)
[2020-03-08] MEDS: ACETAMINOPHEN 1000 MG/100 ML VIAL (NON FORMULARY) IVPB SCH ×2 (12:50→18:31)
[2020-03-08] MEDS: diazePAM 5 MG TABLET PO SCH ×2 (12:50→22:16)
[2020-03-08] MEDS: oxyCODONE HCL 5 MG TABLET PO PRN ×2 (12:50→16:17)
[2020-03-08] MEDS: LACTATED RINGERS SOLUTION 1,000 ML/1,000 ML INFUS.BAG IV SCH ×2 (13:45→16:12)
[2020-03-08] MEDS: DOCUSATE SODIUM 100 MG CAPSULE (FP) PO SCH ×2 (14:00→22:01)
[2020-03-08] MEDS: diphenhydrAMINE HCL 25 MG CAPSULE (FP) PO PRN (17:16)
[2020-03-08] MEDS ORDERED: CEFAZOLIN 1 GM/D5W 1 GM/50 ML BAG IVPB SCH (18:00)
[2020-03-08] MEDS ORDERED: PT OWN MED DRAWER 7, Y5N ONE (18:42)
[2020-03-08] MEDS: MORPHINE SULFATE 2 MG/ML VIAL IVPUSH PRN (20:58)
[2020-03-09] MEDS: ACETAMINOPHEN 1000 MG/100 ML VIAL (NON FORMULARY) IVPB SCH ×2 (00:25→06:04)
[2020-03-09] MEDS ORDERED: ceFAZolin SODIUM 1 GM VIAL ONE ×2 (01:00→09:13)
[2020-03-09] MEDS ORDERED: DEXTROSE 5%-WATER - 50 ML IVPB ONE ×2 (01:00→09:13)
[2020-03-09] MEDS: CEFAZOLIN 1 GM in DEXTROSE 5%-WATER - 50 ML IVPB SCH ×2 (01:10→09:22)
[2020-03-09] MEDS: MORPHINE SULFATE 2 MG/ML VIAL IVPUSH PRN ×4 (04:25→16:34)
[2020-03-09] MEDS: diazePAM 5 MG TABLET PO SCH ×2 (05:56→14:36)
[2020-03-09] MEDS: DOCUSATE SODIUM 100 MG CAPSULE (FP) PO SCH ×3 (05:56→21:09)
[2020-03-09 07:33] LABS: HEMATOCRIT 43.2 % (35.4-49); HEMOGLOBIN 14.2 GM/dL (11.7-16.9); MCH 29.3 pg (25.7-33.7); MCHC 32.9 g/dl (32.0-35.9); MEAN CELL VOLUME 88.9 fl (80-96); MEAN PLT VOLUME 7.8 fl (7.5-11.1); PLATELET COUNT 305 K/MM3 (134-434); RBC 4.86 M/mm3 (4.00-5.60); RDW 13.8 % (11.9-15.9); WHITE BLOOD COUNT 11.4 K/mm3 (4.0-10.0)
[2020-03-09 07:56] LABS: BLOOD UREA NITROGEN 11.5 mg/dL (7-18); CALCIUM 8.6 mg/dL (8.5-10.1); CREATININE 0.9 mg/dL (0.55-1.3); POTASSIUM 4.2 mmol/L (3.5-5.1)
--- NOTE | 2020-03-09 08:25 | PN ---
Progress Note (short form) - Note Progress Note: POD 1, s/p L4/5 laminectomies, interbody cage, L4/5 fusion Pt seen and examined. Reports significant pain overnight despite pain regimen. H as not been oob. Tolerating PO. Dorsey in place. Denies cp/sob, n/v/d. Vital Signs Temp 98.3 F 03/09/20 06:00 Pulse 74 03/09/20 06:00 Resp 18 03/09/20 06:00 BP 117/72 03/09/20 06:00 Pulse Ox 97 03/08/20 23:31 Intake & Output 03/08/20 03/08/20 03/09/20 11:59 23:59 11:59 Intake Total 800 1125 1210 Output Total 125 3085 1280 Balance Weight 198 lb Intake: IV 800 1025 600 LACTATED RINGERS SOLUTION 375 600 1,000 ml In 1,000 ml @ 125 mls/hr IV ASDIR ABNER Rx#:[id number] IVPB 100 250 Oral 360 Output: Drainage 185 80 Right Lower Back 125 80 Urine 100 2900 1200 Dorsey 2300 1200 Estimated Blood Loss 25 Other: Bowel Movement No Height 5 ft 10 in Body Mass Index (BMI) 28.4 Weight Measurement Method Stated by Patient CBC, BMP 03/09/20 06:20 03/09/20 06:20 Gen: awake, alert, nad Resp: unlabored on RA Back: dressing c/d/i, drain in place with scant serosanguinous drainage in reservoir, tubing stripped Neuro: b/l le dorsi/plantarflexion 5/5, silt lle, diminished rle due to bypass per pt A/P: 44 y/o M w/ PMHx hld, pad s/p multiple rle stents most recently s/p r fem- pop bypass, spondylosis now POD 1, s/p L4/5 laminectomies, interbody cage, L4/5 fusion. afebrile, vss labs stable exam stable Cliff output 90ml overnight -remove dorsey, tov -pain control: oxy 5/10 q3h prn, tylenol 1000mg q6hrs prn, valium 5mg tid prn, morphine 2mg q3hrs prn, gabapentin 100tid. 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
[2020-03-09] MEDS: FOLIC ACID 1 MG TABLET (FP) PO SCH (09:24)
[2020-03-09] MEDS: FERROUS SO4 325 MG TABLET (FP) PO SCH (09:24)
[2020-03-09] MEDS ORDERED: oxyCODONE HCL 5 MG TABLET PO PRN ×2 (11:40)
[2020-03-09] MEDS ORDERED: oxyCODONE HCL 10 MG SUSTAINED ACTING TABLET PO SCH ×2 (12:45→13:30)
--- NOTE | 2020-03-09 13:26 | PN ---
Progress Note, Physician Chief Complaint: s/p lumbar laminectomy decompression under general anesthesia History of Present Illness: post op day one, intrathecal duramorph for post op pain control - Current Medication List Current Medications: Active Medications Acetaminophen (Tylenol -) 1,000 mg PO Q6H PRN PRN Reason: PAIN LEVEL 1 - 3 Diazepam (Valium -) 5 mg PO TID [facility] Last Admin: 03/09/20 05:56 Dose: 5 mg Documented by: Diphenhydramine HCl (Benadryl -) 25 mg PO Q6H PRN PRN Reason: FOR ITCHING Last Admin: 03/08/20 17:16 Dose: 25 mg Documented by: Diphenhydramine HCl (Benadryl Injection -) 25 mg IVPUSH ONCE PRN PRN Reason: FOR ITCHING Last Admin: 03/08/20 14:26 Dose: 25 mg Documented by: Docusate Sodium (Colace -) 100 mg PO TID [facility] Last Admin: 03/09/20 05:56 Dose: 100 mg Documented by: Ferrous Sulfate (Feosol -) 325 mg PO DAILY [facility] Last Admin: 03/09/20 09:24 Dose: 325 mg Documented by: Folic Acid (Folic Acid -) 1 mg PO DAILY [facility] Last Admin: 03/09/20 09:24 Dose: 1 mg Documented by: Gabapentin (Neurontin -) 100 mg PO TID [facility] Cefazolin Sodium 1 gm/ (Dextrose) 50 mls @ 100 mls/hr IVPB Q8H-IV [facility] Stop: 03/09/20 17:59 Last Admin: 03/09/20 09:22 Dose: 100 mls/hr Documented by: Morphine Sulfate (Morphine Sulfate) 2 mg IVPUSH Q3H PRN PRN Reason: Severe Pain 7-10 Last Admin: 03/09/20 12:53 Dose: 2 mg Documented by: Naloxone HCl (Narcan -) 0.4 mg IVPUSH ONCE PRN PRN Reason: Sedation Ondansetron HCl (Zofran Injection) 4 mg IVPUSH Q6H PRN PRN Reason: NAUSEA Last Admin: 03/08/20 12:55 Dose: 4 mg Documented by: Oxycodone HCl (Oxycontin -) 10 mg PO BID [facility] Oxycodone HCl (Roxicodone -) 5 mg PO Q3H PRN PRN Reason: Mild Pain 1-3 Oxycodone HCl (Roxicodone -) 10 mg PO Q3H PRN PRN Reason: Moderate Pain 4-6 Last Admin: 03/08/20 16:17 Dose: 10 mg Documented by: Rivaroxaban (Xarelto) 20 mg PO DAILY@1800 [facility]NER Rosuvastatin Calcium (Crestor -) 10 mg PO HS ABNER - Objective Vital Signs: Vital Signs Temperature 98.0 F 03/09/20 10:00 Pulse Rate 79 03/09/20 10:00 Respiratory Rate 18 03/09/20 10:00 Blood Pressure 136/96 03/09/20 10:00 O2 Sat by Pulse Oximetry (%) 97 03/09/20 10:00 Constitutional: Yes: Well Nourished Cardiovascular: Yes: WNL Respiratory: Yes: WNL Gastrointestinal: Yes: WNL Labs: CBC, BMP 03/09/20 06:20 03/09/20 06:20 INR, PTT INR 0.90 (0.83-1.09) 03/08/20 06:06 Assessment/Plan pain not well controlled but patient is refusing oral narcotics, states hes afraid of addiction. counseled him to the risks and benefits of narcotics and states the order will be placed and he can ask for it if he changes his mind. otherwise continue non narcotic analgesics and iv morphine prn, no other anesthesia complications, dept of anesthesiology will sign off care at this time
[2020-03-09] MEDS: GABAPENTIN 100 MG CAPSULE PO SCH ×2 (14:36→21:09)
[2020-03-09] MEDS ORDERED: HYDROmorphone *PCA* 10MG/50ML DISP.SYRIN PCA SCH ×2 (16:45→17:52)
[2020-03-09] MEDS ORDERED: PCA PUMP NR ONE (18:24)
[2020-03-09] MEDS: RIVAROXABAN 20 MG TABLET PO SCH (19:00)
[2020-03-09] MEDS: ACETAMINOPHEN 500 MG TABLET (FP) PO PRN (20:09)
[2020-03-09] MEDS: ROSUVASTATIN CA 10 MG TABLET (FP) PO SCH (21:08)
[2020-03-10] MEDS: ACETAMINOPHEN 500 MG TABLET (FP) PO PRN ×2 (03:12→16:50)
[2020-03-10] MEDS: DOCUSATE SODIUM 100 MG CAPSULE (FP) PO SCH (06:53)
[2020-03-10] MEDS: GABAPENTIN 100 MG CAPSULE PO SCH ×3 (06:53→21:14)
[2020-03-10] MEDS: FOLIC ACID 1 MG TABLET (FP) PO SCH (10:28)
[2020-03-10] MEDS: FERROUS SO4 325 MG TABLET (FP) PO SCH (10:28)
--- NOTE | 2020-03-10 10:31 | PN ---
Progress Note (short form) - Note Progress Note: Surgery: Pt states that he ambulated yesterday with PT in the hallway. No headaches. Vital Signs Period Temp Pulse Resp BP Sys/Villagomez Pulse Ox Last 24 Hr 98.0 F-99.4 F 83-99 18-20 113-132/67-92 93-97 ARNOL: 165ml serosangrenous GEN: A&0x3, NAD Back: LE: 5/5 dorsi/plantar flexion/EHL b/l CBC, BMP 03/09/20 06:20 03/09/20 06:20 A/P: 44 yo male s/p L4-5 laminectomy/decompression/interbody CAGE and posterior fusion, POD#2 D/w Dr. Saez. Will continue CHEF DE FROID today, pt with pain. He is able to ambulate and OOB to chair with TLSO brace Stop iron, pt with constipation and H&H WNL Dulcolax now, and enema PRN Standing tylenol IV abx while ARNOL in place
[2020-03-10] MEDS ORDERED: ACETAMINOPHEN 500 MG TABLET (FP) PO SCH (10:45)
[2020-03-10] MEDS ORDERED: BISACODYL 10 MG SUPP.RECT PR ONE (11:13)
[2020-03-10] MEDS ORDERED: SODIUM PHOSPHATE/NA BIPHOS 133 ML ENEMA RC PRN (11:14)
[2020-03-10] MEDS ORDERED: ACETAMINOPHEN 1000 MG/100 ML VIAL (NON FORMULARY) IVPB PRN (12:17)
--- NOTE | 2020-03-10 12:17 | CONSULT ---
Consult Consult Specialty:: Internal Medicine Referred by:: Neurosurgeon Reason for Consultation:: Medical management - History of Present Illness Chief Complaint: pain in back , constipation History of Present Illness: Pt is s/p L4-L5 laminectomy - was admitted here for elective surgery post Op Day 2 C/o pain in abdomen, and wants to have a bm but unable to do so Pain in back is controlled using LIME MIXER TENDER pump and oral analgesics No nausea or vomiting He is drinking fluids Urinating ok - History Source History Provided By: Patient - Past Medical History Cardio/Vascular: Yes: Hyperlipdemia - Past Surgical History Additional Surgical History: 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 - Alcohol/Substance Use Hx Alcohol Use: No - Smoking History Smoking history: Former smoker Have you smoked in the past 12 months: No Aproximately how many cigarettes per day: 5 If you are a former smoker, when did you quit?: 02/23/19 Home Medications - Allergies Allergies/Adverse Reactions: Allergies Allergy/AdvReac Type Severity Reaction Status Date / Time No Known Allergies Allergy Verified 03/08/20 06:47 - Home Medications Home Medications: Ambulatory Orders Rivaroxaban [Xarelto -] 20 mg PO DAILY #30 tablet 01/05/20 Rosuvastatin [Crestor -] 10 mg PO DAILY 01/29/20 Walker [Ultra-Light Rollator] 1 each MC ONCE 1 Days #1 each 03/11/20 Acetaminophen [Tylenol .Extra-Strength -] 500 mg PO Q6H PRN tablet 03/14/20 Cyclobenzaprine HCl [Flexeril -] 10 mg PO TID PRN 30 Days #60 tablet 03/14/20 Folic Acid - 1 mg PO DAILY tablet 03/14/20 Gabapentin [Neurontin -] 100 mg PO TID #90 capsule 03/14/20 Polyethylene Glycol 3350 [Miralax 119 gm Btl -] 17 gm PO BID #1 bottle 03/14/20 oxyCODONE HCL [Roxicodone -] 10 mg PO Q6H PRN #30 tablet MDD 4 03/14/20 Review of Systems - Review of Systems Constitutional: denies: Chills, Fever Gastrointestinal: reports: Abdominal Pain, Bloating, Constipation. denies: Diarrhea, Indigestion, Nausea, Vomiting Physical Exam Vital Signs: Vital Signs Temperature 98.0 F 03/10/20 06:00 Pulse Rate 91 H 03/10/20 08:40 Respiratory Rate 20 03/10/20 08:40 Blood Pressure 132/92 03/10/20 08:40 O2 Sat by Pulse Oximetry (%) 93 L 03/10/20 08:40 Constitutional: Yes: Mild Distress Cardiovascular: Yes: Regular Rate and Rhythm Respiratory: Yes: CTA Bilaterally Gastrointestinal: Yes: Normal Bowel Sounds, Soft, Distention. No: Tenderness Edema: No Psychiatric: Yes: Alert, Oriented Labs: CBC, BMP 03/09/20 06:20 03/09/20 06:20 Imaging - Results Cat Scan: Report Reviewed, Image Reviewed Problem List - Problems (1) Constipation due to opioid therapy Code(s): K59.03 - DRUG INDUCED CONSTIPATION; T40.2X5A - ADVERSE EFFECT OF OTHER OPIOIDS, INITIAL ENCOUNTER (2) PVD (peripheral vascular disease) Code(s): I73.9 - PERIPHERAL VASCULAR DISEASE, UNSPECIFIED (3) Hyperlipidemia Code(s): E78.5 - HYPERLIPIDEMIA, UNSPECIFIED (4) Low back pain Code(s): M54.5 - LOW BACK PAIN Qualifiers: Chronicity: acute Back pain laterality: right Sciatica presence: without sciatica Qualified Code(s): M54.5 - Low back pain (5) Muscle spasm Code(s): M62.838 - OTHER MUSCLE SPASM Assessment/Plan PLAN On Xarelto for PVD-- has femoral artery occlusion , s/p stent pain control for lower back surgery-- on LIME MIXER TENDER pump pt uses the LIME MIXER TENDER sparingly due to constipation start Miralax BID , dulcolax suppository , senna at night OOB daily,ambulate IV Tylenol-- pt prefers this over dilaudid personnel and 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
[2020-03-10] MEDS: POLYETHYLENE GLYCOL 3350 119 GM BTL PO SCH ×2 (14:52→21:16)
[2020-03-10] MEDS ORDERED: ceFAZolin SODIUM 1 GM VIAL ONE (17:45)
[2020-03-10] MEDS ORDERED: DEXTROSE 5%-WATER - 50 ML IVPB ONE (17:46)
[2020-03-10] MEDS: CEFAZOLIN 1 GM in DEXTROSE 5%-WATER - 50 ML IVPB SCH ×2 (17:49→17:51)
[2020-03-10] MEDS: RIVAROXABAN 20 MG TABLET PO SCH (17:51)
[2020-03-10] MEDS: ROSUVASTATIN CA 10 MG TABLET (FP) PO SCH (21:14)
[2020-03-10] MEDS ORDERED: SENNOSIDES/DOCUSATE COMBO (SENNA PLUS) TABLET (UD) PO SCH (22:00)
[2020-03-11] MEDS: ACETAMINOPHEN 500 MG TABLET (FP) PO PRN ×3 (01:13→17:54)
[2020-03-11] MEDS ORDERED: DEXTROSE 5%-WATER - 50 ML IVPB ONE ×2 (01:58→08:46)
[2020-03-11] MEDS ORDERED: ceFAZolin SODIUM 1 GM VIAL ONE ×2 (01:58→08:46)
[2020-03-11] MEDS: CEFAZOLIN 1 GM in DEXTROSE 5%-WATER - 50 ML IVPB SCH ×2 (02:10→09:04)
[2020-03-11] MEDS: oxyCODONE HCL 5 MG TABLET PO PRN ×3 (06:00→19:58)
[2020-03-11] MEDS: GABAPENTIN 100 MG CAPSULE PO SCH ×3 (06:00→21:21)
--- NOTE | 2020-03-11 08:59 | PN ---
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 Apparently, lost peripheral access and RN unable to obtain new access. ELECTRIC LOCOMOTIVE CRANE OPERATOR was dc'd by Dr. Dc. Administered [facility] with good pain control. A new peripheral IV obtained in AM. He is getting OOB and ambulating with minimal assistance. Attempted PT yesterday but said it was too painful. Tolerating PO diet. Passing flatus but denies BM but feels like the "gas" is moving. Denies n/v/f/c, CP, palpitations, SOB, CORDERO, numbness/tingling or motor defitis. Last Vital Signs Temp Pulse Resp BP Pulse Ox 98.3 F 116 H 19 121/74 93 L 03/11/20 02:00 03/11/20 02:00 03/11/20 02:00 03/11/20 02:00 03/10/20 22:00 CBC, BMP 03/09/20 06:20 03/09/20 06:20 Output 03/10/20 03/10/20 03/11/20 02:00 06:00 06:00 Lumbar ARNOL 25 50 40 PE Gen: awake, alert, nad Resp: unlabored on RA Back: dressing c/d/i, drain in place with scant serosanguinous drainage in reservoir, tubing stripped Neuro: b/l le dorsi/plantarflexion 5/5, [place], diminished rle due to bypass per pt A/P: 44 y/o M w/ PMHx hld, pad s/p multiple rle stents most recently s/p r fem- pop bypass, spondylosis now POD #3, s/p L4/5 laminectomies, interbody cage, L4/5 fusion. -Cont oob and ambulate -PT -pain control: oxy 5/10 q3h prn, tylenol 1000mg q6hrs prn, valium 5mg tid prn, morphine 2mg q3hrs prn, gabapentin 100tid. -IV ABX can be dc'd once drain is removed -- later today. -DVT PPx (SCDs & Xarelto 20mg) -Reg diet -continue home meds -IS Above plan discussed with Dr. Saez and agrees.
[2020-03-11] MEDS: POLYETHYLENE GLYCOL 3350 119 GM BTL PO SCH ×2 (09:02→21:21)
[2020-03-11] MEDS: FOLIC ACID 1 MG TABLET (FP) PO SCH (09:04)
--- NOTE | 2020-03-11 11:26 | PN ---
Progress Note, Physician History of Present Illness: pt seen/ examined chart reviewed. POD #3 s/p s/p L4/5 laminectomies, inter body cage, L4/5 fusion reports pain ++ surgical f/u noted pt says unbearable pain -- today - Current Medication List Current Medications: Active Medications Acetaminophen (Tylenol -) 1,000 mg PO Q6H PRN PRN Reason: PAIN SCALE 1-5 Last Admin: 03/11/20 01:13 Dose: 1,000 mg Documented by: Diphenhydramine HCl (Benadryl -) 25 mg PO Q6H PRN PRN Reason: FOR ITCHING Last Admin: 03/08/20 17:16 Dose: 25 mg Documented by: Folic Acid (Folic Acid -) 1 mg PO DAILY [facility] Last Admin: 03/11/20 09:04 Dose: 1 mg Documented by: Gabapentin (Neurontin -) 100 mg PO TID [facility] Last Admin: 03/11/20 06:00 Dose: 100 mg Documented by: Naloxone HCl (Narcan -) 0.4 mg IVPUSH ONCE PRN PRN Reason: Sedation Ondansetron HCl (Zofran Injection) 4 mg IVPUSH Q6H PRN PRN Reason: NAUSEA Last Admin: 03/08/20 12:55 Dose: 4 mg Documented by: Oxycodone HCl (Roxicodone -) 10 mg PO Q4H PRN PRN Reason: PAIN LEVEL 6-10 Last Admin: 03/11/20 06:00 Dose: 10 mg Documented by: Polyethylene Glycol (Miralax (For Daily Use) -) 17 gm PO BID [facility] Last Admin: 03/11/20 09:02 Dose: 17 grams Documented by: Rivaroxaban (Xarelto) 20 mg PO DAILY@1800 [facility] Last Admin: 03/10/20 17:51 Dose: 20 mg Documented by: Rosuvastatin Calcium (Crestor -) 10 mg PO [facility] Last Admin: 03/10/20 21:14 Dose: 10 mg Documented by: Senna/Docusate Sodium (Pericolace -) 2 tablet PO [facility] Stop: 03/11/20 12:16 Last Admin: 03/10/20 21:16 Dose: 2 tablet Documented by: Sodium Phosphate (Fleet Adult Rectal Enema -) 133 ml RC ONCE PRN PRN Reason: CONSTIPATION - Objective Vital Signs: Vital Signs Temperature 98.5 F 03/11/20 10:00 Pulse Rate 84 03/11/20 10:00 Respiratory Rate 20 03/11/20 10:00 Blood Pressure 120/60 03/11/20 10:00 O2 Sat by Pulse Oximetry (%) 97 03/11/20 10:00 Constitutional: Yes: Mild Distress Neck: Yes: Supple Cardiovascular: Yes: Regular Rate and Rhythm Respiratory: Yes: CTA Bilaterally Gastrointestinal: Yes: Soft Edema: No Labs: CBC, BMP 03/09/20 06:20 03/09/20 06:20 INR, PTT INR 0.90 (0.83-1.09) 03/08/20 06:06 Assessment/Plan Discussed with pt/ RN pain control Pt having BM PT Will monitor today Will follow f/u labs also ordered
[2020-03-11] MEDS: RIVAROXABAN 20 MG TABLET PO SCH (17:54)
[2020-03-11] MEDS: ROSUVASTATIN CA 10 MG TABLET (FP) PO SCH (21:21)
[2020-03-12] MEDS: ACETAMINOPHEN 500 MG TABLET (FP) PO PRN ×4 (00:23→22:59)
[2020-03-12] MEDS: oxyCODONE HCL 5 MG TABLET PO PRN ×5 (00:24→21:06)
[2020-03-12] MEDS: GABAPENTIN 100 MG CAPSULE PO SCH ×3 (06:25→21:06)
[2020-03-12 06:54] LABS: BASO % 0.3 % (0-2.0); EOS % 1.2 % (0-4.5); HEMATOCRIT 43.2 % (35.4-49); HEMOGLOBIN 14.4 GM/dL (11.7-16.9); LYMPH % 20.5 % (8-40); MCH 29.4 pg (25.7-33.7); MCHC 33.4 g/dl (32.0-35.9); MEAN PLT VOLUME 7.3 fl (7.5-11.1); PLATELET COUNT 391 K/MM3 (134-434); RBC 4.91 M/mm3 (4.00-5.60); RDW 13.4 % (11.9-15.9); WHITE BLOOD COUNT 9.5 K/mm3 (4.0-10.0)
[2020-03-12] MEDS: diphenhydrAMINE HCL 25 MG CAPSULE (FP) PO PRN (08:54)
[2020-03-12] MEDS: FOLIC ACID 1 MG TABLET (FP) PO SCH (09:13)
[2020-03-12] MEDS: POLYETHYLENE GLYCOL 3350 119 GM BTL PO SCH ×2 (09:13→21:08)
--- NOTE | 2020-03-12 10:56 | PN ---
Progress Note, Physician History of Present Illness: pt seen/ examined POD #4 s/p s/p L4/5 laminectomies, inter body cage, L4/5 fusion reports severe pain Nurse reports----not taking oxycodone------ takes only when pain is severe Discussed advised to take medication--- When pain comes----it is easier to control pain ----at the start Lying in bed Afebrile - Current Medication List Current Medications: Active Medications Acetaminophen (Tylenol -) 1,000 mg PO Q6H PRN PRN Reason: PAIN SCALE 1-5 Last Admin: 03/12/20 06:24 Dose: 1,000 mg Documented by: Diphenhydramine HCl (Benadryl -) 25 mg PO Q6H PRN PRN Reason: FOR ITCHING Last Admin: 03/12/20 08:54 Dose: 25 mg Documented by: Folic Acid (Folic Acid -) 1 mg PO DAILY [facility] Last Admin: 03/12/20 09:13 Dose: 1 mg Documented by: Gabapentin (Neurontin -) 100 mg PO TID [facility] Last Admin: 03/12/20 06:25 Dose: 100 mg Documented by: Naloxone HCl (Narcan -) 0.4 mg IVPUSH ONCE PRN PRN Reason: Sedation Ondansetron HCl (Zofran Injection) 4 mg IVPUSH Q6H PRN PRN Reason: NAUSEA Last Admin: 03/08/20 12:55 Dose: 4 mg Documented by: Oxycodone HCl (Roxicodone -) 10 mg PO Q4H PRN PRN Reason: PAIN LEVEL 6-10 Last Admin: 03/12/20 08:54 Dose: 10 mg Documented by: Polyethylene Glycol (Miralax (For Daily Use) -) 17 gm PO BID [facility] Last Admin: 03/12/20 09:13 Dose: 17 grams Documented by: Rivaroxaban (Xarelto) 20 mg PO DAILY@1800 [facility] Last Admin: 03/11/20 17:54 Dose: 20 mg Documented by: Rosuvastatin Calcium (Crestor -) 10 mg PO HS [facility] Last Admin: 03/11/20 21:21 Dose: 10 mg Documented by: Sodium Phosphate (Fleet Adult Rectal Enema -) 133 ml RC ONCE PRN PRN Reason: CONSTIPATION - Objective Vital Signs: Vital Signs Temperature 98.3 F 03/12/20 09:42 Pulse Rate 95 H 03/12/20 09:42 Respiratory Rate 19 03/12/20 09:42 Blood Pressure 112/64 03/12/20 09:42 O2 Sat by Pulse Oximetry (%) 93 L 03/12/20 09:42 Constitutional: Yes: Moderate Distress. No: Mild Distress Neck: Yes: Supple Cardiovascular: Yes: Regular Rate and Rhythm Gastrointestinal: Yes: Soft Edema: No Neurological: Yes: Alert Labs: CBC, BMP 03/12/20 05:40 03/09/20 06:20 INR, PTT INR 0.90 (0.83-1.09) 03/08/20 06:06 Assessment/Plan Discussed with pt/ RN pain control oob- chair as tolerated PT surgical f/u cbc noted Will give dose of morphine will follow
[2020-03-12] MEDS ORDERED: MORPHINE SULFATE 2 MG/ML VIAL IVPUSH ONE (11:15)
[2020-03-12] MEDS: RIVAROXABAN 20 MG TABLET PO SCH (17:08)
[2020-03-12] MEDS: ROSUVASTATIN CA 10 MG TABLET (FP) PO SCH (21:06)
[2020-03-12] MEDS ORDERED: CYCLOBENZAPRINE HCL 10 MG TABLET (FP) PO ONE ×2 (23:09→23:15)
[2020-03-13] MEDS: GABAPENTIN 100 MG CAPSULE PO SCH ×3 (05:31→21:34)
[2020-03-13] MEDS: oxyCODONE HCL 5 MG TABLET PO PRN ×5 (05:31→21:59)
[2020-03-13] MEDS: POLYETHYLENE GLYCOL 3350 119 GM BTL PO SCH ×2 (09:19→21:35)
[2020-03-13] MEDS: FOLIC ACID 1 MG TABLET (FP) PO SCH (09:20)
--- NOTE | 2020-03-13 11:03 | PN ---
Progress Note, Physician History of Present Illness: pt seen/ examined POD #5 s/p s/p L4/5 laminectomies, inter body cage, L4/5 fusion reports Pain is better able to get out of the bed----and walk--- in the room Afebrile - Current Medication List Current Medications: Active Medications Acetaminophen (Tylenol -) 1,000 mg PO Q6H PRN PRN Reason: PAIN SCALE 1-5 Last Admin: 03/12/20 22:59 Dose: 1,000 mg Documented by: Diphenhydramine HCl (Benadryl -) 25 mg PO Q6H PRN PRN Reason: FOR ITCHING Last Admin: 03/12/20 08:54 Dose: 25 mg Documented by: Folic Acid (Folic Acid -) 1 mg PO DAILY [facility] Last Admin: 03/13/20 09:20 Dose: 1 mg Documented by: Gabapentin (Neurontin -) 100 mg PO TID [facility] Last Admin: 03/13/20 05:31 Dose: 100 mg Documented by: Naloxone HCl (Narcan -) 0.4 mg IVPUSH ONCE PRN PRN Reason: Sedation Ondansetron HCl (Zofran Injection) 4 mg IVPUSH Q6H PRN PRN Reason: NAUSEA Last Admin: 03/08/20 12:55 Dose: 4 mg Documented by: Oxycodone HCl (Roxicodone -) 10 mg PO Q4H PRN PRN Reason: PAIN LEVEL 6-10 Last Admin: 03/13/20 09:20 Dose: 10 mg Documented by: Polyethylene Glycol (Miralax (For Daily Use) -) 17 gm PO BID [facility] Last Admin: 03/13/20 09:19 Dose: 17 grams Documented by: Rivaroxaban (Xarelto) 20 mg PO DAILY@1800 [facility] Last Admin: 03/12/20 17:08 Dose: 20 mg Documented by: Rosuvastatin Calcium (Crestor -) 10 mg PO HS [facility] Last Admin: 03/12/20 21:06 Dose: 10 mg Documented by: Sodium Phosphate (Fleet Adult Rectal Enema -) 133 ml RC ONCE PRN PRN Reason: CONSTIPATION - Objective Vital Signs: Vital Signs Temperature 99.2 F 03/13/20 10:00 Pulse Rate 93 H 03/13/20 10:00 Respiratory Rate 18 03/13/20 10:00 Blood Pressure 108/62 03/13/20 10:00 O2 Sat by Pulse Oximetry (%) 96 03/13/20 10:00 Constitutional: Yes: No Distress, Calm Neck: Yes: Supple Cardiovascular: Yes: Regular Rate and Rhythm Respiratory: Yes: CTA Bilaterally Gastrointestinal: Yes: Soft Edema: No Labs: CBC, BMP 03/12/20 05:40 03/09/20 06:20 INR, PTT INR 0.90 (0.83-1.09) 03/08/20 06:06 Assessment/Plan Discussed with pt/ RN pain control---better oob- chair as tolerated PT surgical f/u discharge planning-----patient does not want to go home today as there is nobody At home today Reports he will go tomorrow Ambulate as tolerated Anticipate discharge tomorrow
[2020-03-13] MEDS ORDERED: PT OWN MED DRAWER 7, Y5N ONE (12:59)
[2020-03-13] MEDS: ACETAMINOPHEN 500 MG TABLET (FP) PO PRN (14:08)
[2020-03-13] MEDS: CYCLOBENZAPRINE HCL 10 MG TABLET (FP) PO PRN (15:48)
[2020-03-13] MEDS: RIVAROXABAN 20 MG TABLET PO SCH (18:08)
[2020-03-13] MEDS: ROSUVASTATIN CA 10 MG TABLET (FP) PO SCH (21:34)
[2020-03-13] MEDS ORDERED: CYCLOBENZAPRINE HCL 10 MG TABLET (FP) PO ONE (22:56)
[2020-03-14] MEDS: CYCLOBENZAPRINE HCL 10 MG TABLET (FP) PO PRN (00:17)
[2020-03-14] MEDS: ACETAMINOPHEN 500 MG TABLET (FP) PO PRN ×2 (00:17→08:26)
[2020-03-14] MEDS: oxyCODONE HCL 5 MG TABLET PO PRN ×3 (02:25→12:37)
[2020-03-14] MEDS: GABAPENTIN 100 MG CAPSULE PO SCH ×2 (06:28→13:23)
[2020-03-14 06:32] VITALS: TEMP 98.9
--- NOTE | 2020-03-14 09:09 | PN ---
Progress Note (short form) - Note Progress Note: Surgery: No headaches, having bowel function. Vital Signs Period Temp Pulse Resp BP Sys/Villagomez Pulse Ox Last 24 Hr 98.2 F-99.2 F 77-95 18-20 102-147/49-68 94-98 GEN: A&0x3, NAD Back: dressing changed, Inc c/d/i(from Saturday). reapplied small amount of dermabond to the inferior aspect. Inc c/d/i. No erythema or drainage noted. LE: 5/5 dorsi/plantar flexion/EHL b/l CBC, BMP 03/12/20 05:40 03/09/20 06:20 A/P: 44 yo male s/p L4-5 laminectomy/decompression/interbody CAGE and posterior fusion, POD#5 Plan for discharge today Discharge instructions regarding wound care D/w the patient. D/w Dr. Saez
[2020-03-14] MEDS: FOLIC ACID 1 MG TABLET (FP) PO SCH (10:13)
[2020-03-14 10:55] VITALS: BP 114/71; PULSE 84
--- NOTE | 2020-03-14 12:16 | DS ---
"Physical Examination Vital Signs: Vital Signs Temperature 98.9 F 03/14/20 09:45 Pulse Rate 84 03/14/20 09:45 Respiratory Rate 18 03/14/20 09:45 Blood Pressure 114/71 03/14/20 09:45 O2 Sat by Pulse Oximetry (%) 95 03/14/20 09:45 Findings/Remarks: Pt seen/ examined feels much better able to walk in room surgical f/u noted Constitutional: Yes: No Distress, Calm Neck: Yes: Supple Cardiovascular: Yes: Regular Rate and Rhythm Respiratory: Yes: CTA Bilaterally Gastrointestinal: Yes: Soft Edema: No Wound/Incision: Yes: Dressing Dry and Intact Neurological: Yes: Alert Psychiatric: Yes: Alert Labs: CBC, BMP 03/12/20 05:40 03/09/20 06:20 Discharge Summary Reason For Visit: LUMBAR SPONDYLOSIS Hospital Course: 44 yo male s/p L4-5 laminectomy/decompression/interbody CAGE and posterior fusion, POD#5 Overall doing much better pain better d/w pt will d/c home pt advised to follow up with his pmd in week surgical f/u as advised meds prescribed as needed Taper of opiods as tolerated. Pt in agreement. discharge time-- examining/ documenting and coordating care approx 35 min Condition: Stable - Instructions Diet, Activity, Other Instructions: Post Operative Instructions Physical Activity Resume your normal everyday activity as tolerated. No heavy lifting or exercise until seen by your surgeon. You may walk unlimited amounts and climb stairs. You may resume driving the car when you feel safe and comfortable behind the wheel and you are no longer wearing your brace. Do not operate a vehicle while taking narcotic medication. Wound Care Keep your incision clean, dry and covered at all times. Apply an occlusive dressing (Saran wrap or Tegaderm) when showering to avoid getting your incision wet. Do not submerge incision or apply ointments or creams. The vineet will be removed in the office in 10-14 days post-op. Diet There are no dietary restrictions. Eat healthy, high-fiber foods. Drink 6-8 glasses of liquid each day. This will assist in keeping your bowels regular. Pain Management You may take Tylenol or acetaminophen. Any pain prescription medication ordered should be taken as prescribed for moderate to severe pain. Avoid any ibuprofen (Motrin, Advil, Aleve, Toradol, etc) for 3 months unless otherwise discussed with your surgeon. Call Dr Tabares for any of the following: Severe pain not relieved by medication Fever of 101 or higher Excessive bleeding or drainage on dressing Inability to urinate Any chest pain or shortness of breath, seek Emergency Care. Call the office to confirm a post-operative appointment for 2-3 weeks post-op Darion Saez MD [facility] [place] [address] iSTOP The Drug Utilization Report below displays all of the controlled substance prescriptions, if any, that your patient has filled in the last twelve months. The information displayed on this report is compiled from pharmacy submissions to the Department, and accurately reflects the information as submitted by the pharmacies. This report was requested by: Ric Ybarra | Reference #: [id number] Disposition: HOME - Home Medications Comprehensive Discharge Medication List: Ambulatory Orders Rivaroxaban [Xarelto -] 20 mg PO DAILY #30 tablet 01/05/20 Rosuvastatin [Crestor -] 10 mg PO DAILY 01/29/20 Walker [Ultra-Light Rollator] 1 each MC ONCE 1 Days #1 each 03/11/20 Acetaminophen [Tylenol .Extra-Strength -] 500 mg PO Q6H PRN tablet 03/14/20 Cyclobenzaprine HCl [Flexeril -] 10 mg PO TID PRN 30 Days #60 tablet 03/14/20 Folic Acid - 1 mg PO DAILY tablet 03/14/20 Gabapentin [Neurontin -] 100 mg PO TID #90 capsule 03/14/20 Polyethylene Glycol 3350 [Miralax 119 gm Btl -] 17 gm PO BID #1 bottle 03/14/20 oxyCODONE HCL [Roxicodone -] 10 mg PO Q6H PRN #30 tablet MDD 4 03/14/20"
[2020-03-14] MEDS: POLYETHYLENE GLYCOL 3350 119 GM BTL PO SCH (12:37)
== END 2020-03-14 14:36 | disposition home or self-care (01) | DRG 304 ==
LOC: J2C 03-08 04:09 → J4S 03-08 15:57
PROVIDERS: ADMIT Internal Medicine; ATTEND Internal Medicine
PROC: 0SB20ZZ Excision of Lumbar Vertebral Disc, Open Approach (ICD-10-PCS; 2020-03-08)
PROC: B01BZZZ Fluoroscopy of Spinal Cord (ICD-10-PCS; 2020-03-08)
PROC: 0JX70ZZ Transfer Back Subcutaneous Tissue and Fascia, Open Approach (ICD-10-PCS; 2020-03-08)
PROC: 0SG00AJ Fusion of Lumbar Vertebral Joint with Interbody Fusion Device, Posterior Approach, Anterior Column, Open Approach (ICD-10-PCS; principal; 2020-03-08 08:00)
DX: M47.816 Spondylosis without myelopathy or radiculopathy, lumbar region (principal); M48.061 Spinal stenosis, lumbar region without neurogenic claudication; E78.5 Hyperlipidemia, unspecified; I73.9 Peripheral vascular disease, unspecified
CPT/HCPCS: 36415; 72131-TC; 76000-TC-FY; 80048; 85025; 85027; 85610; 85730; 86850; 86900; 86901; 94010; 94760; 97116-GP; 97161-GP; J0131

== ENCOUNTER 2020-10-03 05:23 | Day surgery (SDC) | payer OTHER ==
[2020-09-30 17:18] VITALS: BMI 27.9
[2020-10-03] MEDS ORDERED: NITROGLYCERIN 50 MG/10 ML VIAL IVPB ONE (11:22)
[2020-10-03] MEDS ORDERED: LIDOCAINE HCL 1%, 10 MG/ML (20ML VIAL) ONE (11:22)
[2020-10-03] MEDS ORDERED: HEPARIN NA (PORCINE) 5,000 UNITS/ML 1ML VIAL ONE (11:22)
[2020-10-03] MEDS ORDERED: MIDAZOLAM HCL 2 MG/2 ML SINGLE DOSE VIAL ONE (13:21)
[2020-10-03] MEDS ORDERED: PROPOFOL 20 ML ONE (13:21)
[2020-10-03] MEDS ORDERED: ceFAZolin 2 GRAM PREMIX BAG IVPB ONE (13:40)
[2020-10-03] MEDS ORDERED: LIDOCAINE HCL 1% PRESERVATIVE FREE - 30ML VIAL IJ ONE (14:04)
[2020-10-03] MEDS ORDERED: POVIDONE-IODINE OINTMENT 10% - 28.4 GM TUBE ONE (15:16)
[2020-10-03] MEDS ORDERED: DEXAMETHASONE SOD PHOSPHATE 4 MG/1 ML VIAL ONE (15:17)
[2020-10-03] MEDS ORDERED: POVIDONE-IODINE 10% SOLN 118 ML BOTTLE TP ONE (15:22)
[2020-10-03] MEDS ORDERED: RIVAROXABAN 20 MG TABLET PO ONE (15:26)
[2020-10-03] MEDS ORDERED: morphine SULFATE 4 MG/ML VIAL IVPUSH PRN ×2 (15:32→17:01)
[2020-10-03] MEDS ORDERED: ONDANSETRON 4 MG/2 ML VIAL IVPUSH PRN (15:50)
[2020-10-03] MEDS ORDERED: ACETAMINOPHEN 325 MG TABLET (FP) PO PRN (15:50)
[2020-10-03] MEDS ORDERED: oxyCODONE HCL 5 MG TABLET PO PRN (15:50)
[2020-10-03] MEDS ORDERED: LACTATED RINGERS SOLUTION 1,000 ML IV SCH (16:00)
[2020-10-03] MEDS ORDERED: HYDROmorphone HCl 2 MG/ML VIAL ONE (16:09)
[2020-10-03] MEDS: HYDROmorphone HCl 2 MG/ML VIAL IVPUSH PRN ×4 (16:17→17:15)
[2020-10-03] MEDS ORDERED: ACETAMINOPHEN 325 MG TABLET (FP) ONE (18:22)
[2020-10-03] MEDS: ACETAMINOPHEN 325 MG TABLET (FP) PO PRN (23:18)
[2020-10-04] MEDS ORDERED: ACETAMINOPHEN 1000 MG/100 ML VIAL (NON FORMULARY) IVPB ONE (01:36)
[2020-10-04 06:46] VITALS: BP 108/55; PULSE 73; TEMP 98.2
[2020-10-04] MEDS: ACETAMINOPHEN 325 MG TABLET (FP) PO PRN (07:29)
[2020-10-04] MEDS ORDERED: RIVAROXABAN 20 MG TABLET PO SCH (11:45)
== END 2020-10-04 13:02 | disposition home or self-care (01) ==
LOC: JASU-SURG 05:23 → JASUSAT 05:23 → J7W 21:27 → JASUSAT 10-04 13:02
PROVIDERS: ATTEND Surgery Vascular Surgery
PROC: 047M3Z1 Dilation of Right Popliteal Artery using Drug-Coated Balloon, Percutaneous Approach (ICD-10-PCS; principal; 2020-10-03 14:00)
PROC: 04CM0ZZ Extirpation of Matter from Right Popliteal Artery, Open Approach (ICD-10-PCS; 2020-10-03 14:00)
DX: T82.868A Thrombosis due to vascular prosthetic devices, implants and grafts, initial encounter (principal); I70.211 Atherosclerosis of native arteries of extremities with intermittent claudication, right leg; Y82.8 Other medical devices associated with adverse incidents; Y92.9 Unspecified place or not applicable
CPT/HCPCS: 35875; 37225; C1885; 76000-TC-FY; 94760; J0131; J1644

== ENCOUNTER 2021-08-17 10:07 | Emergency (ER) | payer OTHER ==
[2021-08-17 10:32] VITALS: BMI 26.5
[2021-08-17 13:49] VITALS: BP 125/80; PULSE 65; TEMP 98.6
== END 2021-08-17 13:45 | disposition home or self-care (01) ==
LOC: JER 10:07
DX: M54.2 Cervicalgia (principal); M54.6 Pain in thoracic spine; V49.40XA Driver injured in collision with unspecified motor vehicles in traffic accident, initial encounter
CPT/HCPCS: 70450-TC; 72125-TC; 72128-TC; 72131-TC; 99284-25

== ENCOUNTER 2021-12-18 12:01 | Emergency (ER) | payer OTHER ==
[2021-12-18 12:41] VITALS: BP 130/83; PULSE 72; TEMP 98.5; BMI 26.5
[2021-12-18] MEDS ORDERED: METHOCARBAMOL 500 MG TABLET PO ONE (14:39)
[2021-12-18] MEDS ORDERED: LIDOCAINE 5% TOPICAL PATCH TP ONE (14:39)
[2021-12-18] MEDS ORDERED: ACETAMINOPHEN 500 MG TABLET (FP) PO ONE (14:40)
[2021-12-18] MEDS ORDERED: ACETAMINOPHEN 500 MG TABLET (FP) ONE (14:42)
[2021-12-18] MEDS ORDERED: LIDOCAINE 5% TOPICAL PATCH ONE (14:42)
[2021-12-18] MEDS ORDERED: METHOCARBAMOL 500 MG TABLET ONE (14:42)
== END 2021-12-18 15:44 | disposition home or self-care (01) ==
LOC: JER 12:01 → JERFT 12:01
DX: M54.50 Low back pain, unspecified (principal)
CPT/HCPCS: 72100-TC-FY; 99283-25